=== PATIENT | female | born 1940 | race Caucasian/White ===

== ENCOUNTER 2019-06-14 19:36 | Inpatient (IN) ==
[2019-06-14 21:15] LABS: Basophils # (auto) 0.03 K/uL (0-0.2); Basophils % (auto) 0.3 %; Eosinophils # (auto) 0.03 K/uL (0-0.5); Eosinophils % (auto) 0.3 %; Hematocrit (blood only) 40.8 % (37-47); Hemoglobin 13.6 g/dL (12.0-16.0); Immature Granulocytes # (auto) 0.04 K/uL (0.00-0.02); Immature Granulocytes % (auto) 0.3 %; Lymphocytes # (auto) 1.26 K/uL (1.2-3.4); Lymphocytes % (auto) 10.9 %; Mean Corpuscular Hemoglobin 29.5 pg (25-34); Mean Corpuscular Hgb Conc 33.3 g/dL (32-36); Mean Corpuscular Volume 88.5 fL (80-100); Monocytes # (auto) 1.02 K/uL (0.11-0.59); Monocytes % (auto) 8.8 %; Neutrophils # (auto) 9.17 K/uL (1.4-6.5); Neutrophils % (auto) 79.4 %; Platelet Count 273 K/uL (130-400); RDW Coefficient of Variation 13.8 % (11.5-14.5); RDW Standard Deviation 44.6 fL (36.4-46.3); Red Blood Count 4.61 M/uL (4.2-5.4); White Blood Count 11.55 K/uL (4.8-10.8)
[2019-06-14 21:25] LABS: Alanine Aminotransferase 14 U/L (12-78); Albumin Level 2.9 gm/dl (3.4-5.0); Aspartate Aminotransferase 10 U/L (15-37); BUN Creatinine Ratio 17.9 (10-20); Blood Urea Nitrogen 19 mg/dl (7-18); Calcium 9.2 mg/dl (8.5-10.1); Carbon Dioxide 26 mmol/L (21-32); Chloride 103 mmol/L (98-107); Est GFR (African American) 57.2; Est GFR (Non-African American) 49.3; Glucose 207 mg/dl (70-99); Potassium 3.4 mmol/L (3.5-5.1); Sodium 137 mmol/L (136-145)
[2019-06-14 21:35] LABS: Albumin Globulin Ratio 0.7 (0.9-2); Alkaline Phosphatase 73 U/L (45-117); Bilirubin,Total 0.4 mg/dl (0.2-1); Globulin 4.3 gm/dl (2.5-4.0); Thyroid Stimulating Hormone 0.938 uIu/ml (0.300-4.500); Total Protein 7.2 gm/dl (6.4-8.2); Troponin I < 0.015 ng/ml (0-0.045)
[2019-06-14 21:42] LABS: Appearance Urine Clear (Clear); Bilirubin Urine Negative (Negative); Blood Urine Trace (Negative); Color Urine Yellow; Glucose Urine UA 1+ (Negative); Ketones Urine Negative (Negative); Leukocyte Esterase Urine 1+ (Negative); Nitrite Urine Negative (Negative); Specific Gravity Urine 1.015 (1.000-1.030); Urobilinogen Urine Negative (Negative); pH Urine 7.5 (4.5-7.5)
[2019-06-14 21:44] LABS: Protein Urine Trace (Negative)
[2019-06-14 21:48] LABS: Sulfosalicylic Acid Urine Positive (Negative)
[2019-06-14 21:50] LABS: RBC Urine 0-4 /hpf (0-4)
[2019-06-14 21:51] LABS: Bacteria Urine 1+ (Negative)
--- NOTE | 2019-06-14 21:57 | XRay Report ---
XR chest 1V portable CLINICAL HISTORY: 78 years-old Female presenting with weakness. TECHNIQUE: Portable upright AP view of the chest was obtained. COMPARISON: None. FINDINGS: Suboptimal positioning. The patient is mildly FREY rotated. Atherosclerosis of the aortic arch. Cardia c silhouette mildly enlarged. Mildly low lung volumes with hypoventilatory changes. Left retrocardiac density may relate to cardiomegaly and a prominent pericardial fat pad. No convincing evidence of a focal opacity. No large effusion or pneumothorax. Osteopenia suspected. Evidence of kyphoplasty in th e upper lumbar spine. IMPRESSION: Limited examination due to positioning. This limits diagnostic sensitivity the exam to mild degree. 1. Cardiomegaly. Apparent left retrocardiac density may relate to cardiomegaly or prominent pericard ial fat pad. 2. Low lung volumes and hypoventilatory changes. Electronically signed by: Gilson Meyers M.D. 06/14/2019 9:55 PM
--- NOTE | 2019-06-14 22:44 | CT Scan Report ---
CT head/brain wo con CLINICAL HISTORY: 78 years-old Female presenting with transient ams, confusion. TECHNIQUE: Multidetector CT imaging of the head was performed without the use of intravenous contrast . IV contrast: None. One or more dose lowering techniques were used consistent with the principles of ALARA (as low as reasonably achievable), including automatic exposure control, mA or kV adjustment t o individual patient size, and/or use of iterative reconstruction. COMPARISON: None. CT DOSE (mGy.cm): The estimated cumulative dose is 537.48 mGy.cm. FINDINGS: Media Librarian topogram: Unremarkable. Proportional ventricular and sulcal prominence, advanced for age-related parenchymal volume loss. No hemorrhage. Periventricular and subcortical white matter hypoattenuation, nonspecific but likely galen cative of chronic small vessel ischemic change. No acute territorial infarct. No mass effect or midli ne shift. No extra-axial fluid collection. Paranasal sinuses and mastoid air cells clear. Calvarium i ntact. IMPRESSION: 1. Chronic small vessel ischemic change and advanced parenchymal volume loss. No acute intracranial abnormality. Electronically signed by: Gilson Meyers M.D. 06/14/2019 10:42 PM
[2019-06-14] MEDS ORDERED: CIPROFLOXACIN 400 MG/200 ML BAG IV STA (22:46)
--- NOTE | 2019-06-14 23:54 | Emergency Department Note ---
Entered by Jeannette Calabrese acting as a scribe for Tyrese Hugo M.D. History of Present Illness General Chief complaint: Hypertension Stated complaint: ILLNESS Source: patient Limitations: altered mental status History of Present Illness Provider complaint: Hypertension Onset (ago): hour(s) 3 Associated symptoms: + denies other symptoms (Urinary issues ); no shortness of breath The patient is a 78 year old female who presents to the Emergency Room with complaints of hypertension that began about 3 hours ago. The patient was eating dinner when staff at [facility] noticed that the patient was not acting like herself at dinner. The patient denies any shortness of breath or urinary issues. ROS and HPI limited secondary to altered mental status. Contacted daughter as unable to get staff from facility on the phone. Reports they told her patient had difficulty eating and transferring; also stated she took a nap and was then difficult to arouse from this. Staff found her BP elevated there and called 911. Home Medications Home Medications Medication Instructions Recorded Confirmed Type acetaminophen 1,000 mg PO Q4H PRN 06/14/19 06/14/19 History aspirin 81 mg PO DAILY 06/14/19 06/14/19 History bupropion HCl 300 mg PO QAM 06/14/19 06/14/19 History calcium carbonate [Calcium 600] 600 mg PO BID 06/14/19 06/14/19 History calcium carbonate [Tums] 1,500 mg PO Q2H PRN 06/14/19 06/14/19 History cholecalciferol (vitamin D3) 400 unit PO DAILY 06/14/19 06/14/19 History [Vitamin D3] ciprofloxacin HCl 500 mg PO DIRECTED 06/14/19 06/14/19 History donepezil 10 mg PO HS 06/14/19 06/14/19 History levothyroxine 75 mcg PO DAILY 06/14/19 06/14/19 History lisinopril-hydrochlorothiazide 1 tab PO DAILY 06/14/19 06/14/19 History loratadine 10 mg PO DAILY PRN 06/14/19 06/14/19 History pedi multivit no.58-iron fum 18 mg PO DAILY 06/14/19 06/14/19 History [Child Complete Multivitamin] potassium chloride 8 meq PO DAILY 06/14/19 06/14/19 History promethazine 12.5 mg PO Q6H PRN 06/14/19 06/14/19 History simvastatin 40 mg PO HS 06/14/19 06/14/19 History venlafaxine 37.5 mg PO DAILY 06/14/19 06/14/19 History Allergies Allergy/AdvReac Type Severity Reaction Status Date / Time buspirone [From BuSpar] Allergy Unknown Unknown Verified 06/14/19 23:19 cefuroxime [From Ceftin] Allergy Unknown Unknown Verified 06/14/19 23:19 codeine Allergy Unknown Unknown Verified 06/14/19 23:19 diclofenac [From Voltaren] Allergy Unknown Unknown Verified 06/14/19 23:19 metronidazole [From Flagyl] Allergy Unknown Unknown Verified 06/14/19 23:19 Penicillins Allergy Unknown Unknown Verified 06/14/19 23:19 Past Med/Surg History Medical History Arthritis Depression Falls Hypercholesterolemia Hypertension Hypothyroidism Memory loss Osteopenia Weight loss Family History Other Family history non-contributory Social History Feels Safe at Home: Yes Smoking Status: Never smoker Review of Systems ROS and HPI limited secondary to altered mental status. Physical Exam Vital Signs Vital Signs - 24 hr 06/14/19 19:43 06/14/19 19:53 06/14/19 20:00 Temperature Temperature Source Sepsis Recent Fever Within 48 Hours Sepsis New/Unexplained Change in Mental Status Sepsis Action Taken by Nursing Pulse Rate 90 91 H 91 H Pulse Rate from SpO2 Sensor 90 92 H 92 H Respiratory Rate 22 23 21 Respiratory Effort / Characteristics Respiratory Depth Respiratory Pattern Blood Pressure 167/87 H 162/78 H Blood Pressure Mean 113 106 Pulse Oximetry 92 92 92 Oxygen Delivery Method 06/14/19 20:16 06/14/19 20:30 06/14/19 21:00 Temperature 37.3 C Temperature Source Oral Sepsis Recent Fever Within 48 Hours No Sepsis New/Unexplained Change in Mental Status No Sepsis Action Taken by Nursing No Action Required Pulse Rate 91 H 92 H 87 Pulse Rate from SpO2 Sensor 93 H 87 Respiratory Rate 20 21 17 Respiratory Effort / Characteristics Non-Labored Spontaneous Respiratory Depth Normal Respiratory Pattern Regular Blood Pressure 159/79 H 164/78 H 156/76 H Blood Pressure Mean 105 106 102 Pulse Oximetry 92 92 93 Oxygen Delivery Method Room Air 06/14/19 21:14 06/14/19 21:30 06/14/19 22:00 Temperature Temperature Source Sepsis Recent Fever Within 48 Hours Sepsis New/Unexplained Change in Mental Status Sepsis Action Taken by Nursing Pulse Rate 91 H 89 88 Pulse Rate from SpO2 Sensor Respiratory Rate 20 18 20 Respiratory Effort / Characteristics Respiratory Depth Respiratory Pattern Blood Pressure 152/78 H 153/77 H Blood Pressure Mean 102 102 Pulse Oximetry 92 Oxygen Delivery Method Room Air GENERAL: Awake, alert to person, well-appearing, in no distress. Doesn't know year or events. Pleasant. HENT: Normocephalic, atraumatic. Oropharynx unremarkable. EYES: Normal conjunctiva. Sclera non-icteric. Eyes PERRL. NECK: Supple. No nuchal rigidity. RESPIRATORY: Clear to auscultation. No wheezes. Normal respiratory effort. CARDIAC: Normal rate. Normal rhythm. Extremities warm and well perfused. GI: Soft, non-distended. No tenderness to palpation. RECTAL: Deferred. MUSCULOSKELETAL: Atraumatic. Chest examination reveals no tenderness. LOWER EXTREMITIES: Calves are equal size bilaterally and non-tender. No edema NEURO: No facial droop. Moving all extremities. SKIN: Warm and dry. No jaundice noted. Course 2044: Past medical records reviewed. The patient was evaluated in room C06. A complete history and physical exam was performed. 2244: I reevaluated and discussed the test results with the patient. The patient is resting comfortably. 2253: [facility], He will accept the patient for further evaluation, Administered Medications Discontinued Medications Ciprofloxacin (Cipro) 400 mg in 200 mls @ 200 mls/hr IV NOW STA Stop: 06/14/19 23:45 Last Admin: 06/14/19 23:18 Dose: 200 mls/hr Documented by: [id number] Medical Decision Making Differential Diagnosis Differential diagnoses includes but is not limited to toxic, metabolic, infectious, traumatic, cardiac, neurologic, hematologic, psychiatric and inflammatory etiologies. Medical Records Attestation: I reviewed the patient's medical records. Home Medications Current Medication List: was personally reviewed by me Laboratory Data Attestation: I reviewed the patient's lab results. Result diagrams: 06/14/19 20:51 06/14/19 20:51 Lab Results 06/14/19 06/14/19 06/14/19 Range/Units 20:51 20:51 21:12 WBC 11.55 H (4.8-10.8) K/uL RBC 4.61 (4.2-5.4) M/uL Hgb 13.6 (12.0-16.0) g/dL Hct 40.8 (37-47) % MCV 88.5 (80-100) fL MCH 29.5 (25-34) pg MCHC 33.3 (32-36) g/dL RDW Std Deviation 44.6 (36.4-46.3) fL RDW Coeff of Amber 13.8 (11.5-14.5) % Plt Count 273 (130-400) K/uL MPV 10.0 (7.4-10.4) fL Immature Gran % (Auto) 0.3 % Neut % (Auto) 79.4 % Lymph % (Auto) 10.9 % [place] % (Auto) 8.8 % Eos % (Auto) 0.3 % Baso % (Auto) 0.3 % Immature Gran # (Auto) 0.04 H (0.00-0.02) K/uL Neut # (Auto) 9.17 H (1.4-6.5) K/uL Lymph # (Auto) 1.26 (1.2-3.4) K/uL [place] # (Auto) 1.02 H (0.11-0.59) K/uL Eos # (Auto) 0.03 (0-0.5) K/uL Baso # (Auto) 0.03 (0-0.2) K/uL Sodium 137 (136-145) mmol/L Potassium 3.4 L (3.5-5.1) mmol/L Chloride 103 (98-107) mmol/L Carbon Dioxide 26 (21-32) mmol/L Anion Gap 8.0 (3-11) BUN 19 H (7-18) mg/dl Creatinine 1.07 (0.6-1.2) mg/dl Est Cr Clr Drug Dosing 39.0 ml/min Est GFR ( Amer) 57.2 Est GFR (Non-Af Amer) 49.3 BUN/Creatinine Ratio 17.9 (10-20) Glucose 207 H (70-99) mg/dl Calcium 9.2 (8.5-10.1) mg/dl Magnesium 2.0 (1.8-2.4) mg/dl Total Bilirubin 0.4 (0.2-1) mg/dl AST 10 L (15-37) U/L ALT 14 (12-78) U/L Alkaline Phosphatase 73 (45-117) U/L Troponin I < 0.015 (0-0.045) ng/ml Total Protein 7.2 (6.4-8.2) gm/dl Albumin 2.9 L (3.4-5.0) gm/dl Globulin 4.3 H (2.5-4.0) gm/dl Albumin/Globulin Ratio 0.7 L (0.9-2) TSH 0.938 (0.300-4.500) uIu/ml Urine Color Yellow Urine Appearance Clear (Clear) Urine pH 7.5 (4.5-7.5) Ur Specific [place] 1.015 (1.000-1.030) Urine Protein Trace H (Negative) Urine Glucose (UA) 1+ H (Negative) Urine Ketones Negative (Negative) Urine Blood Trace H (Negative) Urine Nitrite Negative (Negative) Urine Bilirubin Negative (Negative) Urine Urobilinogen Negative (Negative) Ur Leukocyte Esterase 1+ H (Negative) Urine RBC 0-4 (0-4) /hpf Urine WBC 10-30 H (0-5) /hpf Ur Epithelial Cells 10-20 H (0-5) /lpf Ur Renal Epithelial Cell 5-10 H (0-5) /lpf Urine Bacteria 1+ H (Negative) Urine Yeast Present A (None Prsent) Imaging Data Radiologist's Impression: Radiology results as stated below per my review and the radiologist's interpretation: XR chest 1V portable CLINICAL HISTORY: 78 years-old Female presenting with weakness. TECHNIQUE: Portable upright AP view of the chest was obtained. COMPARISON: None. FINDINGS: Suboptimal positioning. The patient is mildly FREY rotated. Atherosclerosis of the aortic arch. Cardiac silhouette mildly enlarged. Mildly low lung volumes with hypoventilatory changes. Left retrocardiac density may relate to cardi omegaly and a prominent pericardial fat pad. No convincing evidence of a focal opacity. No large effusion or pneumothorax. Osteopenia suspected. Evidence of kyphoplasty in the upper lumbar spine. IMPRESSION: Limited examination due to positioning. This limits diagnostic sensitivity the exam to mild degree. 1. Cardiomegaly. Apparent left retrocardiac density may relate to cardiomegaly or prominent pericardial fat pad. 2. Low lung volumes and hypoventilatory changes. Electronically signed by: Gilson Meyers M.D. 06/14/2019 9:[address] head/brain wo con CLINICAL HISTORY: 78 years-old Female presenting with transient ams, confusion. TECHNIQUE: Multidetector CT imaging of the head was performed without the use of intravenous contrast. IV contrast: None. One or more dose lowering techniques were used consistent with the principles of ALARA (as low as reasonably achievable), including automatic exposure control, mA or kV adjustment to individual patient size, and/or use of iterative reconstruction. COMPARISON: None. CT DOSE (mGy.cm): The estimated cumulative dose is 537.48 mGy.cm. FINDINGS: Loom Control Chain Builder topogram: Unremarkable. Proportional ventricular and sulcal prominence, advanced for age-related parenchymal volume loss. No hemorrhage. Periventricular and subcortical white matter hypoattenuation, nonspecific but likely indicative of chronic small vessel ischemic change. No acute territorial infarct. No mass effect or midline shift. No extra-axial fluid collection. Paranasal sinuses and mastoid air cells clear. Calvarium intact. IMPRESSION: 1. Chronic small vessel ischemic change and advanced parenchymal volume loss. No acute intracranial abnormality. Electronically signed by: Gilson Meyers M.D. 06/14/2019 10:42 PM ECG Data Attestation: I personally reviewed and interpreted this ECG as follows: Indication: other (Hypertension) Rate (beats per minute): 89 Rhythm: normal sinus Findings: no PVC, no ST depression and no ST elevation Blood Pressure Blood Pressure Findings: Elevated blood pressure Blood Pressure Disposition: further management by hospitalist [facility] Narrative Patient is a 78-year-old female with a history of hypertension, arthritis, hepatitis, depression, dementia presenting from [facility] today with an episode reported of transient altered mental status. Is evidently having some difficulty eating dinner and not quite acting herself. Evening nap occured per d mayhter via phone report who states she was evidently somewhat difficult to arouse from this. Having some difficulty with transfers and not responding to staff. They noted her to be somewhat hypertensive there. Brought here for further evaluation. Patient arrival here denies any complaints other does unfortunately have memory issues and unable to describe the events. Well- appearing with no significant abnormalities noted on exam other than her dementia issues. Broad work-up was initiated including laboratory studies and a CT of the head. There is no focal neurological deficits noted on gross exam at this time. Laboratory studies show a slight leukocytosis of 11.5 unclear significance at this point. Electrolytes without significant normality. Negative troponin. No significant transaminitis. Thyroid study within normal limits. Patient's urine study does show evidence of leukesterase. White blood cells noted with bacteria however some epithelial cells are noted. Will treat a s UTI at this time. Talked with the daughter who states she has been somewhat altered in the past with UTIs. Given this I feel that observation overnight in the hospital after a dose of antibiotic is appropriate to monitor for improvement. Discussed with the [facility] hospitalist. Given allergy profile and previous history has tolerated ciprofloxacin before. Will give a dose of this IV. Daughter updated via phone and states mother would be full code. Impression & Plan Acute UTI, Altered awareness, transient Discharge Plan Visit Data Chief Complaint: Hypertension Stated Complaint: ILLNESS ED Provider: Tyrese Hugo Discharge Problem: Acute UTI, Altered awareness, transient Forms Stand Alone Forms: My [facility] [place] Anytime DD Prescriptions Prescriptions: No Action aspirin 81 mg Tablet,Delayed Release (Dr/Ec) 81 mg PO DAILY RF: 0 bupropion HCl 300 mg Tablet Extended Release 24 Hr 300 mg PO QAM RF: 0 donepezil 10 mg Tablet 10 mg PO HS RF: 0 levothyroxine 75 mcg Tablet 75 mcg PO DAILY RF: 0 lisinopril-hydrochlorothiazide 20-25 mg Tablet 1 tab PO DAILY RF: 0 potassium chloride 8 mEq Tablet Extended Release 8 meq PO DAILY RF: 0 calcium carbonate [Calcium 600] 600 mg calcium (1,500 mg) Tablet 600 mg PO BID RF: 0 Child Complete Multivitamin 18 mg iron Tablet,Chewable 18 mg PO DAILY RF: 0 simvastatin 40 mg Tablet 40 mg PO HS RF: 0 venlafaxine 37.5 mg Tablet 37.5 mg PO DAILY RF: 0 cholecalciferol (vitamin D3) [Vitamin D3] 400 unit Tablet 400 unit PO DAILY RF: 0 acetaminophen 500 mg Tablet 1,000 mg PO Q4H PRN (Reason: Pain) RF: 0 ciprofloxacin HCl 500 mg Tablet 500 mg PO DIRECTED RF: 0 loratadine 10 mg Tablet 10 mg PO DAILY PRN (Reason: Allergy Symptoms) RF: 0 promethazine 12.5 mg Tablet 12.5 mg PO Q6H PRN (Reason: nausea/vomiting) RF: 0 calcium carbonate [Tums] 300 mg (750 mg) Tablet,Chewable 1,500 mg PO Q2H PRN (Reason: Heartburn) RF: 0 The scribe's documentation has been prepared under my direction and personally reviewed by me in its entirety. I confirm that the note above accurately reflects all work, treatment, procedures, and medical decision making performed by me.
--- NOTE | 2019-06-15 00:27 | History and Physical Report ---
DATE OF ADMISSION: 06/14/2019 CHIEF COMPLAINT: Confusion. HISTORY OF PRESENT ILLNESS: This is a 78-year-old female, a [facility] resident, with past medical history significant for dementia, hypothyroidism, hypertension, hyperlipidemia, depression, osteoporosis, who presents with confusion. As per daughter, the patient was born and lived in the [facility], but since about a year, she moved to [place] to be close with her and she has been at [facility]. She generally eats regular food without any help and she ambulates with a walker because she has some knee pains. Sometimes confused with the place, she thinks sometimes she is in [place] as the dementia is getting worse. She saw her couple of days ago and she had fries and sandwich and she seemed okay and there were no complaints.But today at the dinner table in the alf, patient was not eating and did not respond to the staff questions and EMS was called and brought in here. Currently, the patient is hemodynamically stable, seems comfortable, somewhat hard of hearing, oriented to name . Told her date of to the nursing staff. Does not know where she is. Denies any headache. Denies any chest pain. Denies any nausea. Denies any abdominal pain. Says she is doing okay. She says appetite is good. She says she is going to bathroom okay. ALLERGIES: BUSPIRONE,CEFTIN, CODEINE,DICLOFENAC, METRONIDAZOLE, PENICILLIN. PAST MEDICAL HISTORY: As mentioned above. PAST SURGICAL HISTORY: Cataract surgeries, arthroscopy of the knees, compression fractures cement placement, partial hip replacement. MEDICATIONS: The patient is on Tylenol 1000 mg p.o. q. 4 hours p.r.n., aspirin 81 mg p.o. daily, bupropion 300 mg p.o. a.m., calcium carbonate 600 mg p.o. b.i.d., Tums p.r.n., vitamin D 4000 units p.o. daily, ciprofloxacin as directed, donepezil 10 mg p.o. at bedtime, levothyroxine 75 mcg p.o. daily, lisinopril/hydrochlorothiazide 1 tablet daily, loratadine 10 mg p.o. daily p.r.n., pediatric multivitamins 1 tablet daily, potassium chloride 8 mEq p.o. daily, promethazine 12.5 mg p.o. q. 6 hours p.r.n., simvastatin 40 mg p.o. at bedtime, venlafaxine 37.5 mg p.o. daily. FAMILY HISTORY: Noncontributory. SOCIAL HISTORY: Remote history of smoking, quit over 50 years ago. Currently living in a alf. REVIEW OF SYSTEMS: As per HPI. Difficult to get review of systems. PHYSICAL EXAMINATION: GENERAL: The patient is alert and awake, oriented to name only. VITAL SIGNS: Temperature 37.3, pulse 88, respiratory rate 20, blood pressure 153/77, oxygen 92% on room air. HEENT: No pallor, no icterus. Pupils equal, round, and reactive to light. NECK: No JVD, no neck masses. CARDIOVASCULAR: S1, S2 heard, regular rate and rhythm, no murmur, no gallop. RESPIRATORY SYSTEM: Normal AP diameter. No accessory muscle use. No wheezing, no crackles. ABDOMEN: Soft, bowel sounds present, nontender. No distention. CENTRAL NERVOUS SYSTEM: Alert and awake and oriented x1. Obeys simple commands. Moves extremities. EXTREMITIES: No edema, no erythema. LABORATORY DATA: WBC 11.5, hemoglobin 13.6, hematocrit 40.8, platelets 273. Sodium 137, potassium 3.4, chloride 103, bicarbonate 26, BUN 19, creatinine 1.07, serum glucose 207, calcium 9.2, magnesium 2, total bilirubin 0.4, AST 10, ALT 14, alkaline phosphatase 73, troponin I less than 0.015. TSH 0.9. Urinalysis positive for leukocyte esterase. IMAGING DATA: CT of the head, no acute findings, chronic small vessel ischemic changes and advanced parenchymal volume loss. Chest x-ray, no acute findings. cardiomegaly or prominent pericardial fat pad. ASSESSMENT AND PLAN: This 78-year-old female presents with questionable confusion. 1. Confusion. The patient was not answering to questions of staff at dinner table and brought in here. Currently hemodynamically stable, seems comfortable. Possible urinary tract infection. White count is slightly elevated and UA is positive. She is allergic to cephalosporins and penicillins. Given Cipro in the ER which we will continue with oral Cipro and wait for the cultures and monitor in the medical floor. PT and OT prior to discharge. Social service to help with discharge planning. 2. Hypertension. Continue her home medications of lisinopril/hydrochlorothiazide. 3. Hypothyroidism. Continue Synthroid. 4. Dementia. Continue donepezil. Monitor for any delirium. 5. Depression. Continue bupropion and venlafaxine. 6. Hyperlipidemia. Continue statin. 7. Deep vein thrombosis prophylaxis, sequential compression devices. 8. Disposition: Closely monitor in the medical floor. Level 1 full code as per my discussion with daughter. PT and OT prior to discharge. Social service to help with discharge planning. Plan to send her back to [facility] when patient is stable. [place]
[2019-06-15] MEDS ORDERED: ONDANSETRON INJ 2 MG/ML 2 ML VIAL IV PRN (01:30)
[2019-06-15] MEDS ORDERED: SODIUM CHLORIDE 0.9% 1000ML 1,000 ML IV SCH (01:30)
[2019-06-15] MEDS ORDERED: POTASSIUM CHLORIDE 10 MEQ TABCR PO STA (01:30)
[2019-06-15] MEDS ORDERED: PROMETHAZINE HCL 25 MG TAB PO PRN (01:30)
[2019-06-15] MEDS ORDERED: ACETAMINOPHEN 500 MG TAB PO PRN (01:30)
[2019-06-15] MEDS ORDERED: LORATADINE 10 MG TAB PO PRN (01:30)
[2019-06-15 06:01] LABS: Basophils # (auto) 0.03 K/uL (0-0.2); Basophils % (auto) 0.3 %; Eosinophils # (auto) 0.06 K/uL (0-0.5); Eosinophils % (auto) 0.6 %; Hematocrit (blood only) 40.5 % (37-47); Hemoglobin 13.3 g/dL (12.0-16.0); Immature Granulocytes # (auto) 0.04 K/uL (0.00-0.02); Immature Granulocytes % (auto) 0.4 %; Lymphocytes # (auto) 1.68 K/uL (1.2-3.4); Mean Corpuscular Hemoglobin 29.2 pg (25-34); Mean Corpuscular Hgb Conc 32.8 g/dL (32-36); Mean Platelet Volume 9.8 fL (7.4-10.4); Monocytes # (auto) 1.26 K/uL (0.11-0.59); Neutrophils # (auto) 7.43 K/uL (1.4-6.5); Neutrophils % (auto) 70.7 %; Platelet Count 259 K/uL (130-400); RDW Coefficient of Variation 13.8 % (11.5-14.5); RDW Standard Deviation 44.8 fL (36.4-46.3); Red Blood Count 4.55 M/uL (4.2-5.4)
[2019-06-15 06:04] LABS: BUN Creatinine Ratio 17.9 (10-20); Calcium 8.6 mg/dl (8.5-10.1); Creatinine Clr Calc Pharmacy 46.8 ml/min; Est GFR (African American) 71.4; Est GFR (Non-African American) 61.6; Magnesium 1.9 mg/dl (1.8-2.4); Potassium 3.5 mmol/L (3.5-5.1)
[2019-06-15] MEDS: LEVOTHYROXINE SODIUM 75 MCG TABLET PO SCH (07:09)
[2019-06-15] MEDS: CALCIUM 600MG + VIT D 400 IU TAB PO SCH ×2 (07:59→19:50)
[2019-06-15] MEDS: VENLAFAXINE HCL 37.5 MG TAB PO SCH (07:59)
[2019-06-15] MEDS: BuPROPion XL 300 MG TABCR PO SCH (08:00)
[2019-06-15] MEDS: LISINOPRIL/HCTZ 20/25MG 1 TAB PO SCH (08:00)
[2019-06-15] MEDS: ASPIRIN 81 MG ECTAB PO SCH (08:00)
[2019-06-15] MEDS: POTASSIUM CHLORIDE 10 MEQ TABCR PO SCH (08:00)
[2019-06-15] MEDS: FLINTSTONES COMPLETE CHEWABLE TAB PO SCH (08:00)
[2019-06-15] MEDS: CHOLECALCIFEROL (VITAMIN D) 400 UNITS TABLET PO SCH (08:00)
[2019-06-15] MEDS: CIPROFLOXACIN 250 MG TAB PO SCH ×2 (08:00→19:49)
--- NOTE | 2019-06-15 15:56 | Hospitalist Progress Note ---
Date of Service June 15, 2019 Assessment & Plan (1) Acute UTI: UA positive for leukocyte esterase Evidence of sepsis normal white count, patient is afebrile Started empiric antibiotic with ciprofloxacin, awaiting urine culture report and sensitivity Patient has prior history of Klebsiella UTI,(was sensitive to Cipro) (2) Metabolic encephalopathy: Presented with confusion, lethargy, possible secondary to UTI Mental status improved to approximate baseline, CT head noncontrast shows no evidence of any acute finding chronic small vessel ischemic changes, and advanced parenchymal volume loss-suggested of dementia (3) Dementia: Baseline patient is oriented to person only lives at [facility] independent of ADLs with minimum assistance Presented with lethargy, worsening of confusion and altered mental status, secondary to infection/UTI CT head noncontrast: Shows no acute change, chronic vessel ischemic changes and advanced parenchymal volume loss: Suggestive of her underlying dementia diagnosed Status improved to approximate baseline after supportive care (4) Hypertension: BP stable, outpatient medications lisinopril/HCTZ continued (5) Hyperlipidemia: Patient is continued on statin CODE STATUS: Full code DVT prophylaxis: SCD and teds [facility] prior to this hospital admission PT OT evaluation requested Social service consulted for discharge planning Subjective Patient found sitting up in bedside chair, awake and alert, oriented to person only Denies of any pain or discomfort, Has been afebrile, vitals been stable Patient denies of any abdominal pain, does not recall any urinary symptoms (very poor historian secondary to dementia) Review of Systems Review of Systems: All systems reviewed & are unremarkable except as noted in HPI & below Physical Exam Physical Exam: GENERAL: Elderly female, sitting up no sign of any distress HEENT: Sclera nonicteric, Normal oral mucosa, neck: No JVD, no thyromegaly, trachea midline Lungs: Clear to auscultate, no wheeze or rales Cardiovascular: Regular S1 and S2, no murmur or gallop, no JVD, no lower extremity edema Abdomen: Soft, nontender, bowel sounds active, no hepatosplenomegaly Extremities: No rash or deformity, normal joint, Neuro: No focal neurological deficit, no dysarthria, no facial droop Psych: Alert, baseline advanced dementia oriented to person only Results & Data Vital Signs (Past 12 Hours) Vital Signs Temp Pulse Resp BP Pulse Ox 06/15/19 15:29 37.0 C 78 16 133/66 94 06/15/19 13:19 94 06/15/19 07:05 36.6 C 70 16 150/71 H 93
[2019-06-15] MEDS: ACETAMINOPHEN 325 MG TAB PO PRN ×2 (17:12→21:34)
[2019-06-15] MEDS ORDERED: PNEUMOCOCCAL POLYSACCHARIDES 25 MCG/0.5 ML VIAL/SYR IM ONE (21:00)
[2019-06-15] MEDS ORDERED: DONEPEZIL HCL 10 MG TAB PO SCH (21:00)
[2019-06-15] MEDS ORDERED: PNEUMOCOCCAL ADMINISTRATION CHARGE ONE (21:00)
[2019-06-15] MEDS ORDERED: SIMVASTATIN 40 MG TAB PO SCH (21:00)
[2019-06-16] MEDS: LEVOTHYROXINE SODIUM 75 MCG TABLET PO SCH (06:26)
[2019-06-16 07:20] VITALS: O2SAT 94
[2019-06-16] MEDS: CHOLECALCIFEROL (VITAMIN D) 400 UNITS TABLET PO SCH (08:51)
[2019-06-16] MEDS: CALCIUM 600MG + VIT D 400 IU TAB PO SCH (08:51)
[2019-06-16] MEDS: VENLAFAXINE HCL 37.5 MG TAB PO SCH (08:52)
[2019-06-16] MEDS: ASPIRIN 81 MG ECTAB PO SCH (08:52)
[2019-06-16] MEDS: POTASSIUM CHLORIDE 10 MEQ TABCR PO SCH (08:52)
[2019-06-16] MEDS: LISINOPRIL/HCTZ 20/25MG 1 TAB PO SCH (08:52)
[2019-06-16] MEDS: CIPROFLOXACIN 250 MG TAB PO SCH (08:52)
[2019-06-16] MEDS: FLINTSTONES COMPLETE CHEWABLE TAB PO SCH (08:52)
[2019-06-16] MEDS: BuPROPion XL 300 MG TABCR PO SCH (08:53)
[2019-06-16 11:42] VITALS: BP 179/72; PULSE 65; TEMP 97.9
[2019-06-16] MEDS ORDERED: cephALEXin 250 MG CAP PO STA (12:30)
--- NOTE | 2019-06-16 14:47 | Discharge Summary ---
Date of Service June 16, 2019 Admission HPI Per Admitting Provider DICTATED BY: Guy Hutchison MD DATE OF ADMISSION: 06/14/2019 CHIEF COMPLAINT: Confusion. HISTORY OF PRESENT ILLNESS: This is a 78-year-old female, a [facility] resident, with past medical history significant for dementia, hypothyroidism, hypertension, hyperlipidemia, depression, osteoporosis, who presents with confusion. As per daughter, the patient was born and lived in the [facility], but since about a year, she moved to [place] to be close with her and she has been at [facility]. She generally eats regular food without any help and she ambulates with a walker because she has some knee pains. Sometimes confused with the place, she thinks sometimes she is in [place] as the dementia is getting worse. She saw her couple of days ago and she had fries and sandwich and she seemed okay and there were no complaints.But today at the dinner table in the long-term, patient was not eating and did not respond to the staff questions and EMS was called and brought in here. Currently, the patient is hemodynamically stable, seems comfortable, somewhat hard of hearing, oriented to name . Told her date of to the nursing staff. Does not know where she is. Denies any headache. Denies any chest pain. Denies any nausea. Denies any abdominal pain. Says she is doing okay. She says appetite is good. She says she is going to bathroom okay. Principal Diagnosis URINARY TRACT INFECTION, CONFUSION/LETHARGY DUE TO METABOLIC ENCEPHALOPATHY SECONDARY TO DEHYDRATION AND TRACT INFECTION, BASELINE DEMENTIA Discharge Data Allergies Allergy/AdvReac Type Severity Reaction Status Date / Time buspirone [From BuSpar] Allergy Unknown Unknown Verified 06/14/19 23:19 cefuroxime [From Ceftin] Allergy Unknown Unknown Verified 06/14/19 23:19 codeine Allergy Unknown Unknown Verified 06/14/19 23:19 diclofenac [From Voltaren] Allergy Unknown Unknown Verified 06/14/19 23:19 metronidazole [From Flagyl] Allergy Unknown Unknown Verified 06/14/19 23:19 Penicillins Allergy Unknown Unknown Verified 06/14/19 23:19 Consultations 06/14/19 22:46 ED Decision to Admit Stat 06/15/19 01:30 Consult Case Management - Discharge Planning Routine Ordered Studies 06/14/19 20:51 CT head/brain wo con Stat Hospital Course (1) Acute UTI: UA positive for leukocyte esterase Evidence of sepsis normal white count, patient is afebrile Urine culture negative: Received antibiotics prior to urine culture sample obtained Was initially treated with ciprofloxacin(QTC prolonged more than 500), changed to p.o. Keflex, (2) Metabolic encephalopathy: Resolved, and alert and awake and oriented to place and person: Approximate baseline Stable to be discharged home today Presented with confusion, lethargy, possible secondary to UTI Mental status improved to approximate baseline, CT head noncontrast shows no evidence of any acute finding chronic small vessel ischemic changes, and advanced parenchymal volume loss-suggested of dementia (3) Dementia: Baseline patient is oriented to person only [facility] independent of ADLs with minimum assistance Presented with lethargy, worsening of confusion and altered mental status, secondary to infection/UTI CT head noncontrast: Shows no acute change, chronic vessel ischemic changes and advanced parenchymal volume loss: Suggestive of her underlying dementia diagnosed Status improved to approximate baseline after supportive care (4) Hypertension: BP stable, outpatient medications lisinopril/HCTZ continued (5) Hyperlipidemia: Patient is continued on statin CODE STATUS: Full code DVT prophylaxis: SCD and teds Disposition: Patient is a resident at [facility] Is fairly independent prior to this hospital admission As per PT OT, patient is back to her baseline functional status Stable to be discharged home today with p.o. antibiotic Patient's family: Daughter given update at bedside Total Time Total Time Spent Total Time Spent (In Minutes): Approximately 40 minutes Total Time Includes: Examination of the Patient, Discharge Planning and Medication Reconciliation Discharge Plan Discharge Items Patient Disposition: Personal Half-Way Reason For Visit: CONFUSION Discharge Diagnosis: URINARY TRACT INFECTION, CONFUSION/LETHARGY DUE TO MET ABOLIC ENCEPHALOPATHY SECONDARY TO DEHYDRATION AND TRACT INFECTION, BASELINE DEMENTIA Discharge Goals: Decrease discomfort Activity: Resume your previous activity Non-emergency contact: Primary Care Provider Call non-emergency contact if: you have any medication questions Follow-up/Referrals: Meggan Loyola [Primary Care Provider] - Diet: Heart Healthy Addtl Provider Instructions: Hospital follow-up follow-up with physician at [facility] in a week Prescriptions: New cephalexin [Keflex] 250 mg capsule 250 mg PO BID 5 Days Qty: 10 RF: 0 ciprofloxacin HCl 500 mg tablet 500 mg PO UD Qty: 10 RF: 0 Continued aspirin 81 mg Tablet,Delayed Release (Dr/Ec) 81 mg PO DAILY RF: 0 bupropion HCl 300 mg Tablet Extended Release 24 Hr 300 mg PO QAM RF: 0 donepezil 10 mg Tablet 10 mg PO HS RF: 0 levothyroxine 75 mcg Tablet 75 mcg PO DAILY RF: 0 lisinopril-hydrochlorothiazide 20-25 mg Tablet 1 tab PO DAILY RF: 0 potassium chloride 8 mEq Tablet Extended Release 8 meq PO DAILY RF: 0 calcium carbonate [Calcium 600] 600 mg calcium (1,500 mg) Tablet 600 mg PO BID RF: 0 Child Complete Multivitamin 18 mg iron Tablet,Chewable 18 mg PO DAILY RF: 0 simvastatin 40 mg Tablet 40 mg PO HS RF: 0 venlafaxine 37.5 mg Tablet 37.5 mg PO DAILY RF: 0 cholecalciferol (vitamin D3) [Vitamin D3] 400 unit Tablet 400 unit PO DAILY RF: 0 acetaminophen 500 mg Tablet 1,000 mg PO Q4H PRN (Reason: Pain) RF: 0 loratadine 10 mg Tablet 10 mg PO DAILY PRN (Reason: Allergy Symptoms) RF: 0 promethazine 12.5 mg Tablet 12.5 mg PO Q6H PRN (Reason: nausea/vomiting) RF: 0 calcium carbonate [Tums] 300 mg (750 mg) Tablet,Chewable 1,500 mg PO Q2H PRN (Reason: Heartburn) RF: 0 Discontinued ciprofloxacin HCl 500 mg Tablet 500 mg PO DIRECTED RF: 0 Stand-Alone Forms: [facility] Discharge Orders: Discharge Order (Routine); Ordered 06/16/19 Ordered By: Courtney Ortez Admission Data Admit Date/Time: 06/14/19 23:38 Attending Provider: Courtney Ortez Admit Provider: Guy Hutchison Primary Care Provider: Meggan Loyola Other Providers: Guy Hutchison Service: Medical Other Interventions: Discharge Summary Assessment (RN) Last Done: 06/16/19 13:52 DC Date/Time DO NOT enter until pt leaves facility: 06/16/19 14:40
== END 2019-06-16 14:40 | disposition home or self-care (01) | DRG 689 ==
LOC: ED 19:36 → 2W 23:38

== ENCOUNTER 2020-04-23 09:03 | Inpatient (IN) ==
[2020-04-23] MEDS ORDERED: SODIUM CHLORIDE 0.9% 500 ML IV ONE (09:30)
--- NOTE | 2020-04-23 09:46 | XRay Report ---
XR chest 1V portable CLINICAL HISTORY: weakness dyspnea COMPARISON STUDY: 03/02/2020 FINDINGS: The bones soft tissues and hemidiaphragms are normal. The cardiomediastinal silhouette is n ormal. The lungs are clear. The pulmonary vasculature is normal. IMPRESSION: Negative chest. ACT 112: Negative or not required by law. The above report was generated using voice recognition software. It may contain grammatical, syntax or spelling errors. Electronically signed by: Jonny Butt M.D. 04/23/2020 9:45 AM
[2020-04-23 09:47] LABS: Basophils # (auto) 0.04 K/uL (0-0.2); Basophils % (auto) 0.3 %; Eosinophils # (auto) 0.39 K/uL (0-0.5); Eosinophils % (auto) 2.7 %; Hematocrit (blood only) 42.5 % (37-47); Hemoglobin 13.9 g/dL (12.0-16.0); Immature Granulocytes # (auto) 0.06 K/uL (0.00-0.02); Immature Granulocytes % (auto) 0.4 %; Lymphocytes # (auto) 1.18 K/uL (1.2-3.4); Lymphocytes % (auto) 8.2 %; Mean Corpuscular Hemoglobin 30.3 pg (25-34); Mean Corpuscular Hgb Conc 32.7 g/dL (32-36); Mean Corpuscular Volume 92.6 fL (80-100); Mean Platelet Volume 9.9 fL (7.4-10.4); Monocytes # (auto) 0.87 K/uL (0.11-0.59); Monocytes % (auto) 6.1 %; Neutrophils # (auto) 11.81 K/uL (1.4-6.5); Neutrophils % (auto) 82.3 %; Platelet Count 279 K/uL (130-400); RDW Coefficient of Variation 14.5 % (11.5-14.5); RDW Standard Deviation 49.3 fL (36.4-46.3); Red Blood Count 4.59 M/uL (4.2-5.4); White Blood Count 14.35 K/uL (4.8-10.8)
--- NOTE | 2020-04-23 09:49 | Emergency Department Note ---
History of Present Illness General Chief complaint: Hip Pain Stated complaint: fall/ R hip pain / [facility] Time Seen by Provider: 04/23/20 09:17 History of Present Illness Maximum Pain Intensity: 5 79-year-old female, history of dementia, who presents to emergency department via EMS from the [facility] with complaint of persistent right hip pain after an unwitnessed fall 2 days ago. Staff found the patient laying on the floor. With inability to ambulate, mobile x-rays were completed yesterday of the right hip and pelvis with no acute fractures. With complaint of persistent pain in the hip and back, the patient was therefore sent to the emergency department for further evaluation. When asking the patient where she hurts, she reports her back. When asked to point where she hurts, she is unable to do so. She does not know what caused her to fall. She currently denies any headache, neck pain or upper back pain. She also currently denies any chest pain or belly pain. The patient is unable to rate her pain on my exam, but rated her pain a 5 out of 10 on the Luo Dodd pain scale. Home Medications Home Medications Medication Instructions Recorded Confirmed Type Child Complete Multivitamin 18 mg PO DAILY@89906/14/19 04/23/20 History acetaminophen 1,000 mg PO BID 06/14/19 04/23/20 History aspirin 81 mg PO DAILY@89906/14/19 04/23/20 History bupropion HCl 300 mg PO DAILY@89906/14/19 04/23/20 History calcium carbonate [Calcium 600] 600 mg PO BID 06/14/19 04/23/20 History calcium carbonate [Tums] 1,500 mg PO Q2H PRN 06/14/19 04/23/20 History cholecalciferol (vitamin D3) 400 unit PO DAILY@89906/14/19 04/23/20 History [Vitamin D3] donepezil 10 mg PO DAILY@169906/14/19 04/23/20 History potassium chloride 8 meq PO DAILY@89906/14/19 04/23/20 History promethazine 12.5 mg PO Q6H PRN 06/14/19 04/23/20 History simvastatin 40 mg PO DAILY@169906/14/19 04/23/20 History venlafaxine 37.5 mg PO DAILY@0906/14/19 04/23/20 History ciprofloxacin HCl 500 mg PO UD #10 tab 06/16/19 04/23/20 Rx levothyroxine 88 mcg PO DAILY@0603/02/20 04/23/20 History lisinopril 20 mg PO DAILY@0803/02/20 04/23/20 History acetaminophen 1,000 mg PO Q4H PRN 04/23/20 04/23/20 History amlodipine 5 mg PO DAILY 04/23/20 04/23/20 History loratadine 10 mg PO DAILY PRN 04/23/20 04/23/20 History Allergies Allergy/AdvReac Type Severity Reaction Status Date / Time buspirone [From BuSpar] Allergy Unknown Unknown Verified 04/23/20 09:27 cefuroxime [From Ceftin] Allergy Unknown Unknown Verified 04/23/20 09:27 codeine Allergy Unknown Unknown Verified 04/23/20 09:27 diclofenac [From Voltaren] Allergy Unknown Unknown Verified 04/23/20 09:27 metronidazole [From Flagyl] Allergy Unknown Unknown Verified 04/23/20 09:27 Penicillins Allergy Unknown Unknown Verified 04/23/20 09:27 Past Med/Surg History Medical History Acute UTI (Acute) Arthritis Depression Falls Hypercholesterolemia Hypertension Hypothyroidism Memory loss Metabolic encephalopathy Osteopenia Weight loss Surgical History History of left hip replacement Surgical history unknown Family History Other Family history non-contributory Social History Preferred Language: [place] Communication Ability: Impaired Supervisor [employer] Fueling Required: No Beliefs That Will Affect Care: None marital status: Single Current Living Situation: Retirement Current Living Situation Comment: adriane dueñas current occupational status: retired Other Information That Helps Us Care for You: No other: POA/daughter is Felisa Rae ([phone]) of [employer] Feels Safe at Home: Yes Safety Concerns: Feels Safe At This Time Smoking Status: Never smoker Hx Alcohol Use: No Hx Substance Use: No Review of Systems Review of systems could not be performed given the patient's dementia Physical Exam Vital Signs Vital Signs - 24 hr 04/23/20 09:11 04/23/20 09:36 04/23/20 10:29 Temperature 37.4 C Temperature Source Oral Pulse Rate 90 Pulse Rate [Left Finger] 87 Pulse Rate from SpO2 Sensor Respiratory Rate 18 20 Blood Pressure 171/83 H Blood Pressure [Left Arm] 197/94 H Blood Pressure Mean 112 Blood Pressure Mean [Left Arm] 128 Pulse Oximetry 94 94 94 Oxygen Delivery Method Room Air Room Air Room Air Sepsis Recent Fever Within 48 Hours No Sepsis New/Unexplained Change in Mental Status No 04/23/20 10:30 04/23/20 11:00 04/23/20 11:30 Temperature Temperature Source Pulse Rate 85 90 93 H Pulse Rate [Left Finger] Pulse Rate from SpO2 Sensor 79 Respiratory Rate 15 19 16 Blood Pressure 187/90 H 181/97 H 188/96 H Blood Pressure [Left Arm] Blood Pressure Mean 118 107 131 Blood Pressure Mean [Left Arm] Pulse Oximetry 95 94 94 Oxygen Delivery Method Sepsis Recent Fever Within 48 Hours Sepsis New/Unexplained Change in Mental Status CONSTITUTIONAL: Healthy and well nourished. Patient is currently positioned on her left side. Patient otherwise does not appear in any acute distress. Patient does answer some questions that she understands. HEENT: Normocephalic, atraumatic. Pupils equal, round and reactive. No evidence for epistaxis, hemotympanum, subconjunctival hemorrhage, raccoon's eyes or leroy sign. No obvious dental trauma or posterior pharyngeal blood or drainage. NECK: Patient does not have any identifiable tenderness to palpation of the central cervical spine or cervical musculature. The patient limits range of motion secondary to positioning. LYMPHATICS: No cervical chain adenopathy appreciated. RESPIRATORY: Clear to auscultation bilaterally with no wheezing, crackles, rhonchi or stridor. CARDIOVASCULAR: Regular rate and rhythm with no murmurs, rubs or gallops. GASTROINTESTINAL: Bowel sounds present in all quadrants. Abdomen is soft and nontender to palpation. MUSCULOSKELETAL: Examination does not show any focal significant tenderness to palpation through the thoracolumbar spine or ribs. She has mild discomfort with internal and external rotation of the right hip. Pelvis is stable with rock. Patient has no obvious discomfort with range of motion of the shoulders, elbows or wrists. No tenderness to palpation of the knees, ankles or feet. No dependent/peripheral edema noted. All distal pulses are intact. INTEGUMENTARY: No rash or other significant dermatologic conditions noted. HEMATOLOGIC: No ecchymosis or petechiae. PSYCHIATRIC: Flat affect. NEUROLOGIC: No focal neurologic deficits noted. Course Course Patient history and physical exam were performed. Nurse's notes were reviewed. Vital signs were reviewed, showing an oral temperature of 37.4 C. O2 saturation is 94% on room air. Blood pressure is also elevated at 171/83, and pulse rate is 90. I also reviewed prior medical records, showing that the patient has had prior history of altered mental status secondary to UTI. The patient has had several prior urine cultures showing E. coli and Klebsiella that were both pansensitive. I also reviewed documentation from the [facility], with mobile x-rays performed yesterday of the right hip and pelvis that were normal. Old healed fracture deformities of the right and left anterior alexa pelvis, involving the pubic rami were also noted. The patient also has a left hip arthroplasty which appears intact. She does have moderately severe arthritic change of the right hip joint. Because the the patient did have an unwitnessed fall, as well as history of dementia and poor history, I felt that further work-up was warranted for other causes of fall. IV access was established, and labs were drawn. Urine cath was also collected with urinalysis consistent with UTI. Urine cultures are pending. Patient also has a moderate leukocytosis with left shift and bandemia. Glucose is 167. Patient was placed on cardiac cath lab radiology technologist while in the emergency department. A portable chest x-ray and ECG were normal. Noncontrast CT of the head and cervical spine were normal. Noncontrast CT of the thoracolumbar spine shows wedge fractures of T11 and L5. Noncontrast CT of the pelvis and right hip shows a right ischio pubic ramus fracture. Findings were discussed with Dr. Beltre, ED attending physician, who also evaluated the patient, and recommends hospitalist consultation. The case was then further discussed with the [facility] hospitalist group for further admission and management. Please see their dictation for further treatment and final disposition. I also called and spoke with the patient's daughter Felisa (power of customer operations intern), who is currently in [place] with her sister, and without means to travel back to [place] until . She has asked that the hospitalist service contact her regarding plan of care for possible rehab as she does usually ambulate at the [facility] with a walker. Administered Medications Discontinued Medications Sodium Chloride (Nss) 500 mls @ 999 mls/hr IV .Q31M ONE Stop: 04/23/20 10:00 Last Infusion: 04/23/20 10:29 Dose: 0 mls/hr Documented by: [id number] Admin: 04/23/20 09:58 Dose: 999 mls/hr Documented by: [id number] Ceftriaxone Sodium (Rocephin) 2,000 mg in 70 mls @ 140 mls/hr IV NOW STA Stop: 04/23/20 10:43 Last Infusion: 04/23/20 11:07 Dose: 0 mls/hr Documented by: [id number] Admin: 04/23/20 10:27 Dose: 140 mls/hr Documented by: [id number] Medical Decision Making Medical Records Attestation: I reviewed the patient's medical records. Home Medications Current Medication List: was personally reviewed by me Laboratory Data Attestation: I reviewed the patient's lab results. Result diagrams: 04/23/20 09:35 04/23/20 09:35 Lab Results 04/23/20 04/23/20 04/23/20 Range/Units 09:35 09:35 09:35 WBC 14.35 H (4.8-10.8) K/uL RBC 4.59 (4.2-5.4) M/uL Hgb 13.9 (12.0-16.0) g/dL Hct 42.5 (37-47) % MCV 92.6 (80-100) fL MCH 30.3 (25-34) pg MCHC 32.7 (32-36) g/dL RDW Std Deviation 49.3 H (36.4-46.3) fL RDW Coeff of Amber 14.5 (11.5-14.5) % Plt Count 279 (130-400) K/uL MPV 9.9 (7.4-10.4) fL Immature Gran % (Auto) 0.4 % Neut % (Auto) 82.3 % Lymph % (Auto) 8.2 % Winkler % (Auto) 6.1 % Eos % (Auto) 2.7 % Baso % (Auto) 0.3 % Neut # (Auto) 11.81 H (1.4-6.5) K/uL Lymph # (Auto) 1.18 L (1.2-3.4) K/uL Winkler # (Auto) 0.87 H (0.11-0.59) K/uL Eos # (Auto) 0.39 (0-0.5) K/uL Baso # (Auto) 0.04 (0-0.2) K/uL Immature Gran # (Auto) 0.06 H (0.00-0.02) K/uL Sodium 142 (136-145) mmol/L Potassium 3.8 (3.5-5.1) mmol/L Chloride 110 H (98-107) mmol/L Carbon Dioxide 24 (21-32) mmol/L Anion Gap 8.0 (3-11) BUN 16 (7-18) mg/dl Creatinine 1.04 (0.6-1.2) mg/dl Est Cr Clr Drug Dosing 38.8 ml/min Est GFR ( Amer) 58.8 Est GFR (Non-Af Amer) 50.7 BUN/Creatinine Ratio 15.3 (10-20) Glucose 167 H (70-99) mg/dl Calcium 9.1 (8.5-10.1) mg/dl Phosphorus 2.6 (2.5-4.9) mg/dl Magnesium 2.3 (1.8-2.4) mg/dl Total Bilirubin 0.5 (0.2-1) mg/dl AST 17 (15-37) U/L ALT 20 (12-78) U/L Alkaline Phosphatase 73 (45-117) U/L Total Creatine Kinase 51 (26-192) U/L Troponin I < 0.015 (0-0.045) ng/ml Total Protein 7.7 (6.4-8.2) gm/dl Albumin 3.3 L (3.4-5.0) gm/dl Globulin 4.4 H (2.5-4.0) gm/dl Albumin/Globulin Ratio 0.7 L (0.9-2) 25-OH Vitamin D Total 25.6 L (30-100) ng/ml TSH 0.717 (0.300-4.500) uIu/ml Urine Color Urine Appearance (Clear) Urine pH (4.5-7.5) Ur Specific Amity (1.000-1.030) Urine Protein (Negative) Urine Glucose (UA) (Negative) Urine Ketones (Negative) Urine Blood (Negative) Urine Nitrite (Negative) Urine Bilirubin (Negative) Urine Urobilinogen (Negative) Ur Leukocyte Esterase (Negative) Urine WBC (Auto) (0-5) /hpf Urine RBC (Auto) (0-4) /hpf U Hyaline Cast (Auto) (0-5) /lpf U Epithel Cells (Auto) (0-5) /lpf Urine Bacteria (Auto) (Negative) 04/23/20 Range/Units 09:50 WBC (4.8-10.8) K/uL RBC (4.2-5.4) M/uL Hgb (12.0-16.0) g/dL Hct (37-47) % MCV (80-100) fL MCH (25-34) pg MCHC (32-36) g/dL RDW Std Deviation (36.4-46.3) fL RDW Coeff of Amber (11.5-14.5) % Plt Count (130-400) K/uL MPV (7.4-10.4) fL Immature Gran % (Auto) % Neut % (Auto) % Lymph % (Auto) % Winkler % (Auto) % Eos % (Auto) % Baso % (Auto) % Neut # (Auto) (1.4-6.5) K/uL Lymph # (Auto) (1.2-3.4) K/uL Winkler # (Auto) (0.11-0.59) K/uL Eos # (Auto) (0-0.5) K/uL Baso # (Auto) (0-0.2) K/uL Immature Gran # (Auto) (0.00-0.02) K/uL Sodium (136-145) mmol/L Potassium (3.5-5.1) mmol/L Chloride (98-107) mmol/L Carbon Dioxide (21-32) mmol/L Anion Gap (3-11) BUN (7-18) mg/dl Creatinine (0.6-1.2) mg/dl Est Cr Clr Drug Dosing ml/min Est GFR ( Amer) Est GFR (Non-Af Amer) BUN/Creatinine Ratio (10-20) Glucose (70-99) mg/dl Calcium (8.5-10.1) mg/dl Phosphorus (2.5-4.9) mg/dl Magnesium (1.8-2.4) mg/dl Total Bilirubin (0.2-1) mg/dl AST (15-37) U/L ALT (12-78) U/L Alkaline Phosphatase (45-117) U/L Total Creatine Kinase (26-192) U/L Troponin I (0-0.045) ng/ml Total Protein (6.4-8.2) gm/dl Albumin (3.4-5.0) gm/dl Globulin (2.5-4.0) gm/dl Albumin/Globulin Ratio (0.9-2) 25-OH Vitamin D Total (30-100) ng/ml TSH (0.300-4.500) uIu/ml Urine Color Yellow Urine Appearance Cloudy A (Clear) Urine pH 8.0 H (4.5-7.5) Ur Specific Amity 1.022 (1.000-1.030) Urine Protein Trace H (Negative) Urine Glucose (UA) Trace H (Negative) Urine Ketones Negative (Negative) Urine Blood Negative (Negative) Urine Nitrite Positive A (Negative) Urine Bilirubin Negative (Negative) Urine Urobilinogen Negative (Negative) Ur Leukocyte Esterase 2+ H (Negative) Urine WBC (Auto) >30 H (0-5) /hpf Urine RBC (Auto) 0-4 (0-4) /hpf U Hyaline Cast (Auto) 10-30 H (0-5) /lpf U Epithel Cells (Auto) 5-10 H (0-5) /lpf Urine Bacteria (Auto) 4+ H (Negative) Imaging Data Attestation: I personally reviewed and interpreted this imaging study as follows: My Impression: My interpretation of reportable chest x-ray does not show any consolidations, pneumothorax or cardiac prominence. My interpretation of a noncontrast CT of the head and cervical spine did not show any acute fractures or intracranial bleed. My interpretation of noncontrast CT imaging of the thoracolumbar spine shows wedge deformities of T11 and L5. My interpretation of a noncontrast CT of the pelvis and right hip confirms an acute nondisplaced right ischio pubic ramus fracture, and possible cortical step-off of the right femoral head/neck junction. Radiologist reports were also reviewed. Radiologist's Impression: XR chest 1V portable CLINICAL HISTORY: weakness dyspnea COMPARISON STUDY: 03/02/2020 FINDINGS: The bones soft tissues and hemidiaphragms are normal. The cardiomediastinal silhouette is normal. The lungs are clear. The pulmonary vasculature is normal. IMPRESSION: Negative chest. CT head/brain wo con CLINICAL HISTORY: Pain status post trauma COMPARISON STUDY: 06/14/2019 TECHNIQUE: Axial CT of the brain is performed from the vertex to the skull base. IV contrast was not administered for this examination. A dose lowering technique was utilized adhering to the principles of ALARA. CT DOSE: FINDINGS: No intra or extra-axial mass lesions are visualized. There is no CT evidence of acute cortical infarction. There is no evidence of midline shift. There is no acute hemorrhage. No calvarial fractures are visualized. Extensive There is mild ventricular dilatation, finding which is felt to be secondary to volume loss. There is no evidence of acute sinusitis IMPRESSION: No acute intracranial findings CT OF THE CERVICAL SPINE CLINICAL HISTORY: Neck pain status post trauma COMPARISON STUDY: No previous studies for comparison. CT DOSE: TECHNIQUE: CT scan of the cervical spine was performed from the skull base to the thoracic inlet. Images are reviewed in the axial, sagittal, and coronal planes. IV contrast was not administered for this examination. A dose lowering technique was utilized adhering to the principles of ALARA. FINDINGS: The visualized portions of the lung apices reveal no evidence of pneumothorax. The prevertebral soft tissues are normal. No fractures or subluxations are visualized. There are multilevel degenerative changes. 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 IMPRESSION: No evidence of acute fracture or traumatic subluxation. CT thoracic spine wo con CT DOSE: HISTORY: Trauma. Pain. Back pain from fall TECHNIQUE: Multiaxial CT images of the thoracic spine were performed and reformatted in the sagittal and coronal plane without the use of contrast. A dose lowering technique was utilized adhering to the principles of ALARA. COMPARISON: None. FINDINGS: Compression deformity L1 with an associated 5 kyphoplasty. This is considered old. Slight wedge deformity superior endplate T11 of indeterminate age. No evidence for a significant compression deformity. No significant compromise of the spinal canal. IMPRESSION: 1. Slight wedge deformity T11. 2. Compression deformity L1 consider old. 3. No significant compromise of the spinal canal or major acute compression deformity. CT lumbar spine wo con CT DOSE: 3892.71 mGy.cm HISTORY: Trauma. Pain. R hip/back pain from fall TECHNIQUE: Multiaxial CT images of the lumbar spine were performed and reformatted in the sagittal and coronal plane without the use of contrast. A dose lowering technique was utilized adhering to the principles of ALARA. COMPARISON: None. FINDINGS: Complete compression deformity L1 with an associated kyphoplasty. This most likely is nonacute. Generalized osteopenia/osteoporosis. Mild compression deformity superior endplate of L5 of uncertain age. No significant compromise of the spinal canal. Moderate degenerative change of the posterior elements throughout. IMPRESSION: 1. Mild wedge deformity superior endplate L5 of uncertain age. 2. Complete compression deformity with associated vertebroplasty of L1. This appears to be old. 3. Generalized osteopenia/osteoporosis 4. Moderate scoliosis. CT SCAN OF THE PELVIS WITHOUT IV CONTRAST CLINICAL HISTORY: Fall. Pelvic pain. COMPARISON STUDY: No priors. TECHNIQUE: CT scan of the pelvis is performed from the pelvic inlet to the proximal femora. Images are reviewed in the axial, sagittal, and coronal planes. IV contrast was not administered for this examination. A dose lowering technique was utilized adhering to the principles of ALARA. The examination is degraded by streak artifact from a left hip arthroplasty. FINDINGS: The skeletal structures are osteopenic. A unipolar left hip arthroplasty is in place. There are acute minimally displaced fractures of the right superior and inferior pubic ring. No additional acute fracture is ident ified. There are chronic/healed fractures of the left pubic ring and sacrum. A compression deformity of L5 is age indeterminate. There is no evidence of osteonecrosis of the right femoral head. Moderate degenerative joint space narrowing is seen in the right hip. There is generalized atrophy of the regional musculature. No hematoma is identified. The bladder is partially decompressed and grossly unremarkable. There are calcified uterine fibroids. No adnexal lesion is seen. There is no free fluid in the pelvis. Fecal retention is noted in the rectosigmoid region. There is no evidence of bowel obstruction. Atherosclerotic calcification is noted in the iliac arteries. There is no pelvic sidewall or inguinal adenopathy. IMPRESSION: 1. There are acute minimally displaced right pubic ring fractures. 2. No additional acute fracture is identified involving the hips or pelvis. 3. Chronic fractures as detailed above. CT hip RT wo con CT DOSE: CLINICAL HISTORY: Right hip pain status post trauma TECHNIQUE: Helical images were acquired in the transverse plane. Sagittal and coronal reformatted images were acquired. A dose lowering technique was utilized adhering to the principles of ALARA. COMPARISON STUDY: None FINDINGS: There are calcified uterine fibroids present. There are acute fractures of the right inferior pubic ramus. There is a subtle cortical step-off at the level of the femoral head neck junction. This could either represent a nondisplaced subcapital hip fracture or osteophyte. An MRI is recommended in follow-up. IMPRESSION: 1. Acute nondisplaced right ischio pubic ramus fracture 2. Subtle cortical step-off at the level of the right femoral head neck junction. This could either represent a nondisplaced subcapital hip fracture or osteophyte. An MRI is recommended in follow-up. ECG Data Attestation: I personally reviewed and interpreted this ECG as follows: Indication: + other (Unwitnessed fall, dementia) Rate (beats per minute): 88 Rhythm: + normal sinus ECG Intervals/blocks: + Normal QRS ECG [place]: + Normal Comparison ECG Date: from (03/02/2020) Change: no significant change Blood Pressure Blood Pressure Findings: Elevated blood pressure Blood Pressure Disposition: further management by hospitalist WILLA Schneider Patient presents to the emergency department for evaluation of injuries from an unwitnessed fall 2 days ago. Patient did have x-rays of the pelvis and right hip yesterday that were unremarkable; CT imaging today shows several vertebral compression fractures, as well as a right ischio pubic fracture and possible subtle right hip fracture. An MRI of the hip was suggested. Patient also has another UTI with moderate leukocytosis. The patient is currently afebrile, therefore I do not suspect sepsis. Mental status is difficult to evaluate secondary to dementia. Patient has no other electrolyte abnormalities. Checks x-ray and ECG are not suggestive of acute cardiopulmonary event. Troponin is also normal, therefore I do not suspect major cardiac event. The patient has no other unusual findings on physical exam to warrant additional peripheral x-rays. Impression & Plan Closed pelvic ring fracture, Acute UTI, Closed wedge compression fracture of T11 vertebra, Closed wedge compression fracture of L5 vertebra, [facility] at jail, Dementia Discharge Plan Visit Data *Final* Discharge Date/Time: 04/23/20 13:38 Chief Complaint: Hip Pain Stated Complaint: fall/ R hip pain / [facility] ED Provider: Magen Beltre ED Midlevel Provider: Geo Rodriguez Discharge Problem: Closed pelvic ring fracture, Acute UTI, Closed wedge compression fracture of T11 vertebra, Closed wedge compression fracture of L5 vertebra, Fall at jail, Dementia Patient Disposition: Admitted As Inpatient Discharge Instructions Interventions: ED Discharge Assessment Last Done: 04/23/20 13:38 Discharge Problem: Closed pelvic ring fracture Qualifiers: Encounter type: initial encounter Qualified Code(s): S32.810A - Multiple fractures of pelvis with stable disruption of pelvic ring, initial encounter for closed fracture Closed wedge compression fracture of T11 vertebra Qualifiers: Encounter type: initial encounter Qualified Code(s): S22.080A - Wedge compression fracture of T11-T12 vertebra, initial encounter for closed fracture Closed wedge compression fracture of L5 vertebra Qualifiers: Encounter type: initial encounter Qualified Code(s): S32.050A - Wedge compression fracture of fifth lumbar vertebra, initial encounter for closed fracture [facility] Qualifiers: Encounter type: initial encounter Qualified Code(s): W19.XXXA - Unspecified fall, initial encounter Dementia Qualifiers: Dementia type: unspecified type Dementia behavioral disturbance: without behavioral disturbance Qualified Code(s): F03.90 - Unspecified dementia without behavioral disturbance
[2020-04-23 10:00] LABS: Albumin Level 3.3 gm/dl (3.4-5.0); BUN Creatinine Ratio 15.3 (10-20); Blood Urea Nitrogen 16 mg/dl (7-18); Calcium 9.1 mg/dl (8.5-10.1); Carbon Dioxide 24 mmol/L (21-32); Chloride 110 mmol/L (98-107); Creatinine Clr Calc Pharmacy 38.8 ml/min; Est GFR (African American) 58.8; Est GFR (Non-African American) 50.7; Glucose 167 mg/dl (70-99); Magnesium 2.3 mg/dl (1.8-2.4); Potassium 3.8 mmol/L (3.5-5.1); Sodium 142 mmol/L (136-145)
[2020-04-23 10:01] LABS: Appearance Urine Cloudy (Clear); Bacteria Urine Automated 4+ (Negative); Bilirubin Urine Negative (Negative); Blood Urine Negative (Negative); Color Urine Yellow; Glucose Urine UA Trace (Negative); Ketones Urine Negative (Negative); Leukocyte Esterase Urine 2+ (Negative); Nitrite Urine Positive (Negative); RBC Urine Automated 0-4 /hpf (0-4); Specific Gravity Urine 1.022 (1.000-1.030); Urobilinogen Urine Negative (Negative); WBC Urine Automated >30 /hpf (0-5)
[2020-04-23 10:04] LABS: Protein Urine Trace (Negative)
[2020-04-23 10:09] LABS: Sulfosalicylic Acid Urine Positive (Negative)
[2020-04-23 10:11] LABS: Alanine Aminotransferase 20 U/L (12-78); Albumin Globulin Ratio 0.7 (0.9-2); Alkaline Phosphatase 73 U/L (45-117); Aspartate Aminotransferase 17 U/L (15-37); Bilirubin,Total 0.5 mg/dl (0.2-1); Creatine Kinase 51 U/L (26-192); Globulin 4.4 gm/dl (2.5-4.0); Phosphorus 2.6 mg/dl (2.5-4.9); Thyroid Stimulating Hormone 0.717 uIu/ml (0.300-4.500); Total Protein 7.7 gm/dl (6.4-8.2); Troponin I < 0.015 ng/ml (0-0.045)
[2020-04-23] MEDS ORDERED: cefTRIAXone SODIUM 2,000 MG/70 ML BAG IV STA (10:14)
--- NOTE | 2020-04-23 10:28 | CT Scan Report ---
CT head/brain wo con CLINICAL HISTORY: Pain status post trauma COMPARISON STUDY: 06/14/2019 TECHNIQUE: Axial CT of the brain is performed from the vertex to the skull base. IV contrast was not administered for this examination. A dose lowering technique was utilized adhering to the principles of ALARA. CT DOSE: FINDINGS: No intra or extra-axial mass lesions are visualized. There is no CT evidence of acute cortical infarc tion. There is no evidence of midline shift. There is no acute hemorrhage. No calvarial fractures ar e visualized. Extensive There is mild ventricular dilatation, finding which is felt to be secondary to volume loss. There is no evidence of acute sinusitis IMPRESSION: No acute intracranial findings ACT 112: Negative or not required by law. Electronically signed by: Mata Pinto M.D. 04/23/2020 10:27 AM
--- NOTE | 2020-04-23 10:30 | CT Scan Report ---
CT OF THE CERVICAL SPINE CLINICAL HISTORY: Neck pain status post trauma COMPARISON STUDY: No previous studies for comparison. CT DOSE: TECHNIQUE: CT scan of the cervical spine was performed from the skull base to the thoracic inlet. Sharda ges are reviewed in the axial, sagittal, and coronal planes. IV contrast was not administered for thi s examination. A dose lowering technique was utilized adhering to the principles of ALARA. FINDINGS: The visualized portions of the lung apices reveal no evidence of pneumothorax. The prevertebral soft tissues are normal. No fractures or subluxations are visualized. There are multilevel degenerative changes. 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 IMPRESSION: No evidence of acute fracture or traumatic subluxation. ACT 112: Negative or not required by law. Electronically signed by: Mata Pinto M.D. 04/23/2020 10:29 AM
--- NOTE | 2020-04-23 10:30 | CT Scan Report ---
CT lumbar spine wo con CT DOSE: 3892.71 mGy.cm HISTORY: Trauma. Pain. R hip/back pain from fall TECHNIQUE: Multiaxial CT images of the lumbar spine were performed and reformatted in the sagittal an d coronal plane without the use of contrast. A dose lowering technique was utilized adhering to the principles of ALARA. COMPARISON: None. FINDINGS: Complete compression deformity L1 with an associated kyphoplasty. This most likely is nonac [place]. Generalized osteopenia/osteoporosis. Mild compression deformity superior endplate of L5 of uncertain age. No significant compromise of the spinal canal. Moderate degenerative change of the posterior elements throughout. IMPRESSION: 1. Mild wedge deformity superior endplate L5 of uncertain age. 2. Complete compression deformity with associated vertebroplasty of L1. This appears to be old. 3. Generalized osteopenia/osteoporosis 4. Moderate scoliosis. ACT 112: Negative or not required by law. The above report was generated using voice recognition software. It may contain grammatical, syntax or spelling errors. Electronically signed by: Jonny Butt M.D. 04/23/2020 10:29 AM
--- NOTE | 2020-04-23 10:35 | CT Scan Report ---
CT hip RT wo con CT DOSE: CLINICAL HISTORY: Right hip pain status post trauma TECHNIQUE: Helical images were acquired in the transverse plane. Sagittal and coronal reformatted reagan ges were acquired. A dose lowering technique was utilized adhering to the principles of ALARA. COMPARISON STUDY: None FINDINGS: There are calcified uterine fibroids present. There are acute fractures of the right inferior pubic ramus. There is a subtle cortical step-off at the level of the femoral head neck junction. This could either represent a nondisplaced subcapital hip fracture or osteophyte. An MRI is recommended in follow-up. IMPRESSION: 1. Acute nondisplaced right ischio pubic ramus fracture 2. Subtle cortical step-off at the level of the right femoral head neck junction. This could either r epresent a nondisplaced subcapital hip fracture or osteophyte. An MRI is recommended in follow-up. ACT 112: Negative or not required by law. Electronically signed by: Mata Pinto M.D. 04/23/2020 10:34 AM
--- NOTE | 2020-04-23 10:36 | CT Scan Report ---
CT thoracic spine wo con CT DOSE: HISTORY: Trauma. Pain. Back pain from fall TECHNIQUE: Multiaxial CT images of the thoracic spine were performed and reformatted in the sagittal and coronal plane without the use of contrast. A dose lowering technique was utilized adhering to th e principles of ALARA. COMPARISON: None. FINDINGS: Compression deformity L1 with an associated 5 kyphoplasty. This is considered old. Slight wedge deformity superior endplate T11 of indeterminate age. No evidence for a significant compression deformity. No significant compromise of the spinal canal. IMPRESSION: 1. Slight wedge deformity T11. 2. Compression deformity L1 consider old. 3. No significant compromise of the spinal canal or major acute compression deformity. ACT 112: Negative or not required by law. The above report was generated using voice recognition software. It may contain grammatical, syntax or spelling errors. Electronically signed by: Jonny Butt M.D. 04/23/2020 10:35 AM
--- NOTE | 2020-04-23 11:09 | CT Scan Report ---
CT SCAN OF THE PELVIS WITHOUT IV CONTRAST CLINICAL HISTORY: Fall. Pelvic pain. COMPARISON STUDY: No priors. TECHNIQUE: CT scan of the pelvis is performed from the pelvic inlet to the proximal femora. Images ar e reviewed in the axial, sagittal, and coronal planes. IV contrast was not administered for this exam ination. A dose lowering technique was utilized adhering to the principles of ALARA. The examination is degraded by streak artifact from a left hip arthroplasty. FINDINGS: The skeletal structures are osteopenic. A unipolar left hip arthroplasty is in place. There are acute minimally displaced fractures of the right superior and inferior pubic ring. No additional acute fracture is identified. There are chronic/healed fractures of the left pubic ring and sacrum. A compression deformity of L5 is age indeterminate. There is no evidence of osteonecrosis of the righ t femoral head. Moderate degenerative joint space narrowing is seen in the right hip. There is generalized atrophy of the regional musculature. No hematoma is identified. The bladder is p artially decompressed and grossly unremarkable. There are calcified uterine fibroids. No adnexal lesi on is seen. There is no free fluid in the pelvis. Fecal retention is noted in the rectosigmoid region . There is no evidence of bowel obstruction. Atherosclerotic calcification is noted in the iliac mary jasmine. There is no pelvic sidewall or inguinal adenopathy. IMPRESSION: 1. There are acute minimally displaced right pubic ring fractures. 2. No additional acute fracture is identified involving the hips or pelvis. 3. Chronic fractures as detailed above. ACT 112: Negative or not required by law. Dictated: 04/23/2020 10:32 AM Transcribed: 04/23/2020 10:54 AM [place] [id number] [email or web address] Electronically signed by: Saulo Ceballos M.D. 04/23/2020 11:08 AM
--- NOTE | 2020-04-23 12:46 | History & Physical Report ---
Date of Service April 23, 2020 Assessment & Plan (1) Fall: (2) Fractures: Unwitnessed fall CT scans showing acute minimally displaced fractures of the right superior and inferior pubic ring and other old fractures Get ortho eval Pain control Fall precautions (3) Possible urinary tract infection: UA shows pyuria Will treat considering patient's dementia, inability to provide history Follow up urine culture Continue ceftriaxone (4) Hypertension: Poorly controlled hypertension Likely due to pain as well Control pain Continue home antihypertensives Monitor BP and manage appropriately (5) Hypothyroidism: Continue home levothyroxine (6) DVT prophylaxis: Hep sq for now CODE STATUS : Spoke with Daughter Felisa (POA) [phone]. FULL CODE History of Present Illness 79 year old with dementia who was brought from [facility] for right hip pain after an unwitnessed fall 2 days ago. She was found on the flow and had difficulty ambulating. Per records from [place], mobile XR fo right hip/pelvis did not show acute fracture. However, patient continued to have pain necessitating ER presentation Patient cannot provide any history due to dementia Difficulty assessing pain as patient is not able to. Limited ROS due to dementia Primary Care Provider: [facility] Allergies Allergy/AdvReac Type Severity Reaction Status Date / Time buspirone [From BuSpar] Allergy Unknown Unknown Verified 04/23/20 09:27 cefuroxime [From Ceftin] Allergy Unknown Unknown Verified 04/23/20 09:27 codeine Allergy Unknown Unknown Verified 04/23/20 09:27 diclofenac [From Voltaren] Allergy Unknown Unknown Verified 04/23/20 09:27 metronidazole [From Flagyl] Allergy Unknown Unknown Verified 04/23/20 09:27 Penicillins Allergy Unknown Unknown Verified 04/23/20 09:27 Home Medications Home Medications Medication Instructions Recorded Confirmed Type Child Complete Multivitamin 18 mg PO DAILY@89906/14/19 04/23/20 History acetaminophen 1,000 mg PO BID 06/14/19 04/23/20 History aspirin 81 mg PO DAILY@89906/14/19 04/23/20 History bupropion HCl 300 mg PO DAILY@89906/14/19 04/23/20 History calcium carbonate [Calcium 600] 600 mg PO BID 06/14/19 04/23/20 History calcium carbonate [Tums] 1,500 mg PO Q2H PRN 06/14/19 04/23/20 History cholecalciferol (vitamin D3) 400 unit PO DAILY@0900 06/14/19 04/23/20 History [Vitamin D3] donepezil 10 mg PO DAILY@1700 06/14/19 04/23/20 History potassium chloride 8 meq PO DAILY@0900 06/14/19 04/23/20 History promethazine 12.5 mg PO Q6H PRN 06/14/19 04/23/20 History simvastatin 40 mg PO DAILY@1700 06/14/19 04/23/20 History venlafaxine 37.5 mg PO DAILY@0900 06/14/19 04/23/20 History ciprofloxacin HCl 500 mg PO UD #10 tab 06/16/19 04/23/20 Rx levothyroxine 88 mcg PO DAILY@0603/02/20 04/23/20 History lisinopril 20 mg PO DAILY@0803/02/20 04/23/20 History acetaminophen 1,000 mg PO Q4H PRN 04/23/20 04/23/20 History amlodipine 5 mg PO DAILY 04/23/20 04/23/20 History loratadine 10 mg PO DAILY PRN 04/23/20 04/23/20 History Past Med/Surg History Medical History Acute UTI (Acute) Arthritis Depression Falls Hypercholesterolemia Hypertension Hypothyroidism Memory loss Metabolic encephalopathy Osteopenia Weight loss Surgical History History of left hip replacement Surgical history unknown Family History Other Family history non-contributory Social History Preferred Language: Upper Sorbian Communication Ability: Impaired Telemarketer Required: No Beliefs That Will Affect Care: None marital status: Single Current Living Situation: [facility] Current Living Situation Comment: adriane dueñas current occupational status: retired Other Information That Helps Us Care for You: No other: POA/daughter is Felisa Rae ([phone]) of [employer] Feels Safe at Home: Yes Safety Concerns: Feels Safe At This Time Smoking Status: Never smoker Hx Alcohol Use: No Hx Substance Use: No Review of Systems Review of Systems: Unobtainable due to cognitive status Physical Exam Constitutional: + well hydrated; no acute distress Eyes: PERRL, conjunctivae normal, anicteric sclerae ENMT: external ear and nose normal, oropharynx normal Respiratory: normal respiratory effort, lungs clear to auscultation Cardiovascular: Rate/Rhythm: regular rate and regular rhythm Heart Sounds: normal S1 and normal S2 Extremities: no pedal edema Gastrointestinal (Abdomen): normal bowel sounds, soft, nontender, no hepatosplenomegaly Musculoskeletal: Reported pain with passive ROM of right leg. No tenderness on palpation over both legs Neurologic: Awake, alert, disoriented. Not following commands appropriate Results & Data Results & Data ([facility]) Vital Signs (Past 12 Hours) Vital Signs Temp Pulse Pulse Resp BP BP Pulse Ox 04/23/20 11:30 93 H 16 188/96 H 94 04/23/20 11:00 90 19 181/97 H 94 04/23/20 10:30 85 15 187/90 H 95 04/23/20 10:29 87 20 197/94 H 94 04/23/20 09:36 94 04/23/20 09:11 37.4 C 90 18 171/83 H 94 Laboratory Results Laboratory Results - last 24 hr 04/23/20 04/23/20 04/23/20 09:35 09:35 09:50 WBC 14.35 H RBC 4.59 Hgb 13.9 Hct 42.5 MCV 92.6 MCH 30.3 MCHC 32.7 RDW Std Deviation 49.3 H RDW Coeff of Amber 14.5 Plt Count 279 MPV 9.9 Immature Gran % (Auto) 0.4 Neut % (Auto) 82.3 Lymph % (Auto) 8.2 Moore % (Auto) 6.1 Eos % (Auto) 2.7 Baso % (Auto) 0.3 Neut # (Auto) 11.81 H Lymph # (Auto) 1.18 L Moore # (Auto) 0.87 H Eos # (Auto) 0.39 Baso # (Auto) 0.04 Immature Gran # (Auto) 0.06 H Sodium 142 Potassium 3.8 Chloride 110 H Carbon Dioxide 24 Anion Gap 8.0 BUN 16 Creatinine 1.04 Est Cr Clr Drug Dosing 38.8 Est GFR ( Amer) 58.8 Est GFR (Non-Af Amer) 50.7 BUN/Creatinine Ratio 15.3 Glucose 167 H Calcium 9.1 Phosphorus 2.6 Magnesium 2.3 Total Bilirubin 0.5 AST 17 ALT 20 Alkaline Phosphatase 73 Total Creatine Kinase 51 Troponin I < 0.015 Total Protein 7.7 Albumin 3.3 L Globulin 4.4 H Albumin/Globulin Ratio 0.7 L TSH 0.717 Urine Color Yellow Urine Appearance Cloudy A Urine pH 8.0 H Ur Specific [place] 1.022 Urine Protein Trace H Urine Glucose (UA) Trace H Urine Ketones Negative Urine Blood Negative Urine Nitrite Positive A Urine Bilirubin Negative Urine Urobilinogen Negative Ur Leukocyte Esterase 2+ H Urine WBC (Auto) >30 H Urine RBC (Auto) 0-4 U Hyaline Cast (Auto) 10-30 H U Epithel Cells (Auto) 5-10 H Urine Bacteria (Auto) 4+ H SARS-CoV-2 RNA (RT-PCR) 04/23/20 11:45 WBC RBC Hgb Hct MCV MCH MCHC RDW Std Deviation RDW Coeff of Amber Plt Count MPV Immature Gran % (Auto) Neut % (Auto) Lymph % (Auto) Moore % (Auto) Eos % (Auto) Baso % (Auto) Neut # (Auto) Lymph # (Auto) Moore # (Auto) Eos # (Auto) Baso # (Auto) Immature Gran # (Auto) Sodium Potassium Chloride Carbon Dioxide Anion Gap BUN Creatinine Est Cr Clr Drug Dosing Est GFR ( Amer) Est GFR (Non-Af Amer) BUN/Creatinine Ratio Glucose Calcium Phosphorus Magnesium Total Bilirubin AST ALT Alkaline Phosphatase Total Creatine Kinase Troponin I Total Protein Albumin Globulin Albumin/Globulin Ratio TSH Urine Color Urine Appearance Urine pH Ur Specific [place] Urine Protein Urine Glucose (UA) Urine Ketones Urine Blood Urine Nitrite Urine Bilirubin Urine Urobilinogen Ur Leukocyte Esterase Urine WBC (Auto) Urine RBC (Auto) U Hyaline Cast (Auto) U Epithel Cells (Auto) Urine Bacteria (Auto) SARS-CoV-2 RNA (RT-PCR) Pending Diagnostic Findings Thoracic CT 1. Slight wedge deformity T11. 2. Compression deformity L1 consider old. 3. No significant compromise of the spinal canal or major acute compression deformity. Pelvic CT FINDINGS: The skeletal structures are osteopenic. A unipolar left hip arthroplasty is in place. There are acute minimally displaced fractures of the right superior and inferior pubic ring. No additional acute fracture is identified. There are chronic/healed fractures of the left pubic ring and sacrum. A compression deformity of L5 is age indeterminate. There is no evidence of osteonecrosis of the right femoral head. Moderate degenerative joint space narrowing is seen in the right hip. There is generalized atrophy of the regional musculature. No hematoma is identified. The bladder is partially decompressed and grossly unremarkable. There are calcified uterine fibroids. No adnexal lesion is seen. There is no free fluid in the pelvis. Fecal retention is noted in the rectosigmoid region. There is no evidence of bowel obstruction. Atherosclerotic calcification is noted in the iliac arteries. There is no pelvic sidewall or inguinal adenopathy. IMPRESSION: 1. There are acute minimally displaced right pubic ring fractures. 2. No additional acute fracture is identified involving the hips or pelvis. 3. Chronic fractures as detailed above. Lumbar CT 1. Mild wedge deformity superior endplate L5 of uncertain age. 2. Complete compression deformity with associated vertebroplasty of L1. This appears to be old. 3. Generalized osteopenia/osteoporosis 4. Moderate scoliosis. Hip CT 1. Mild wedge deformity superior endplate L5 of uncertain age. 2. Complete compression deformity with associated vertebroplasty of L1. This appears to be old. 3. Generalized osteopenia/osteoporosis 4. Moderate scoliosis. Code Status & VTE Plan VTE Prophylaxis Plan VTE Prophylaxis will be ordered: Yes
[2020-04-23] MEDS ORDERED: MoRPHine SULFATE 2 MG/ML CARP IV PRN (14:03)
--- NOTE | 2020-04-23 15:36 | Electrocardiogram Report ---
Test Reason : Blood Pressure : / mmHG Vent. 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
[2020-04-23] MEDS: HEPARIN SOD 5,000 UNIT/0.5 ML VIAL SQ SCH ×2 (16:04→22:02)
[2020-04-23] MEDS: ACETAMINOPHEN 325 MG TAB PO SCH ×2 (16:16→20:32)
[2020-04-23] MEDS: SIMVASTATIN 40 MG TAB PO SCH (16:17)
[2020-04-23] MEDS: DONEPEZIL HCL 10 MG TAB PO SCH (16:17)
[2020-04-23] MEDS ORDERED: AMLODIPINE BESYLATE 5 MG TAB PO ONE (16:24)
[2020-04-23] MEDS: CALCIUM CARBONATE 1250MG TAB PO SCH (20:32)
[2020-04-24] MEDS: ACETAMINOPHEN 325 MG TAB PO SCH ×4 (02:10→21:17)
[2020-04-24] MEDS: HEPARIN SOD 5,000 UNIT/0.5 ML VIAL SQ SCH ×3 (05:36→21:17)
[2020-04-24] MEDS: LEVOTHYROXINE SODIUM 88 MCG TABLET PO SCH (05:37)
[2020-04-24 06:30] LABS: Hematocrit (blood only) 42.6 % (37-47); Hemoglobin 13.7 g/dL (12.0-16.0); Mean Corpuscular Hemoglobin 29.6 pg (25-34); Mean Corpuscular Hgb Conc 32.2 g/dL (32-36); Mean Platelet Volume 9.9 fL (7.4-10.4); Platelet Count 245 K/uL (130-400); RDW Coefficient of Variation 14.8 % (11.5-14.5); RDW Standard Deviation 49.9 fL (36.4-46.3); Red Blood Count 4.63 M/uL (4.2-5.4); White Blood Count 12.32 K/uL (4.8-10.8)
[2020-04-24 07:06] LABS: BUN Creatinine Ratio 20.8 (10-20); Calcium 8.7 mg/dl (8.5-10.1); Creatinine Clr Calc Pharmacy 48.1 ml/min; Est GFR (African American) 76.1; Est GFR (Non-African American) 65.6; Potassium 3.5 mmol/L (3.5-5.1)
--- NOTE | 2020-04-24 08:02 | Consultation Report ---
DATE OF CONSULTATION: 04/23/2020 ORTHOPEDIC CONSULTATION REASON FOR CONSULT: Pelvic fracture. HISTORY OF PRESENT ILLNESS: The patient is an 79-year-old white female who resides at [facility] skilled facility. She has a history of dementia and history is being taken from the chart at this time. Apparently, the patient had an unwitnessed fall approximately 2 days ago and was having some difficulty ambulating. X-rays were taken at that time from a portable unit and showed no acute fracture. The patient continued to have pain with ambulation difficulties and was brought to the Emergency Room for evaluation. CT scans were taken and showed a minimally displaced right ischiopubic ramus fracture. It is noted her white count was elevated and the patient had a possible UTI as well. She was admitted by the [facility] and we have been asked to see her for her pubic ramus fracture. PAST MEDICAL HISTORY: Dementia, hypothyroidism, hypertension, hyperlipidemia, depression, osteoporosis. PAST SURGICAL HISTORY: Cataract surgeries, she has had bilateral knee arthroscopies, history of compression fractures with kyphoplasty and hemiarthroplasty of the hip, left. FAMILY HISTORY: Noncontributory. SOCIAL HISTORY: The patient resides at a skilled facility, was a smoker but quit many, many years ago. REVIEW OF SYSTEMS: The patient currently with dementia and a poor historian. PHYSICAL EXAMINATION: GENERAL: The patient is an 79-year-old white female who is currently sitting up in her bed with a food tray in front of her and she is slowly eating her lunch. She does not verbalize any answer to questions, but she does nod yes or no to some of the questions that we discussed. EXTREMITIES: Focusing on the right lower extremity, leg lengths appear equal. She has good range of motion of her right ankle and toes and denies any decreased sensation. She is nontender of the right knee on palpation and when trying to do some gentle internal and external rotation of the hip causes her some discomfort. She does not tolerate much in the way of further flexion than what she is already sitting up in bed, just increasing the flexion angle to approximately 10 degrees causes her discomfort in the groin and the hip. She is mildly tender on the lateral side of the hip itself. She has no pain on palpation of the left hip, left knee or left ankle. Straight leg raise does cause a little bit of discomfort in the low back. There is no tenderness noted in the shoulders, elbows and wrists and she is currently feeding herself fairly readily without needing help. Distal pulses are equal bilaterally of the upper and lower extremities. There appears to be no gross motor or sensory loss seen at this time. IMAGING: X-ray review showing a CT of the hip and pelvis the nondisplaced right ischiopubic ramus fracture. There was a subtle cortical step-off noted at the level of the right femoral head at the head and neck junction. This was reviewed by Dr. Jarrett and myself and it is felt to be osteophyte rather than fracture. ASSESSMENT: Right ischiopubic ramus fracture. PLAN: The patient can be partial weightbearing in the right lower extremity pending input from the spine team for her compression fractures. At this time, it is felt that she does not have any type of hip fracture; however, if her pain worsens, repeat x-rays or an MRI of the right hip might be warranted. Thank you for this consult. Attending Addendum: Patient seen and examined personally, agree with above assessment and plan. Patient may participate in PT/OT when medically stable. PWB RLE, ambulate with assistive device such as a walker. Follow up in office with Dr. Jarrett in 4 weeks for XRs, call office to confirm date and time of appointment at [phone]. Thank you. BRANDON
[2020-04-24] MEDS: lisinopriL 20 MG TAB PO SCH (09:00)
[2020-04-24] MEDS: CHOLECALCIFEROL (VITAMIN D) 400 UNITS TABLET PO SCH (09:12)
[2020-04-24] MEDS: FLINTSTONES COMPLETE CHEWABLE TAB PO SCH (09:12)
[2020-04-24] MEDS: CALCIUM CARBONATE 1250MG TAB PO SCH ×2 (09:13→21:17)
[2020-04-24] MEDS: BuPROPion XL 300 MG TABCR PO SCH (09:14)
[2020-04-24] MEDS: cefTRIAXone SODIUM 1,000 MG in DEXTROSE 5% 50 ML IV SCH (09:14)
[2020-04-24] MEDS: AMLODIPINE BESYLATE 5 MG TAB PO SCH (09:14)
[2020-04-24] MEDS: POTASSIUM CHLORIDE 10 MEQ TABCR PO SCH (09:15)
[2020-04-24] MEDS: VENLAFAXINE HCL 37.5 MG TAB PO SCH (09:16)
[2020-04-24] MEDS: ASPIRIN 81 MG ECTAB PO SCH (09:16)
--- NOTE | 2020-04-24 14:57 | Hospitalist Progress Note ---
Date of Service April 24, 2020 Assessment & Plan (1) Fall: possible 2/2 UTI. Resulted in pelvic fracture. Nonoperable. PT/OT to assess with rehab at SNF as transition back home. (2) Closed pelvic ring fracture: supportive care as above. Per Ortho, right partial weight bearing ok. Pending PT and OT assessments. Cont scheduled APAP to help temper any pain that might be present. (3) Acute UTI: Rocephin pending culture results. (4) Hypertension: at goal on home regimen of lisinopril 20mg daily (5) Hypothyroidism: Continue home levothyroxine (6) Closed wedge compression fracture of T11 vertebra: pending ortho spine evaluation (7) Closed wedge compression fracture of L5 vertebra: same as above. (8) Dementia: end stage. Appears to be at her baseline. High risk for delirium in the hospital with infection and fractures. Reorient her as necessary. Maintain good day/night cycles. (9) DVT prophylaxis: heparin SQ Full Code Dispo-to SNF pending PT/OT evaluations. Shanna Delgado DO [facility] Hospitalist Admission and Anticipated Discharge Date Admission Date: April 23, 2020 Subjective altered at baseline, cannot obtain a ROS. Denies any pain. Review of Systems Review of Systems: Unobtainable due to mental health condition Physical Exam Physical Exam: CONSTITUTIONAL: WNWD, vitals as above, generally well- appearing EYES: normal conjunctivae, no scleral icterus ENT: external ear and nose normal, MMM RESPIRATORY: clear to auscultation bilaterally, no crackles, rales or wheezes, normal respiratory effort . Limited exam as patient will not cooperate with exam and take deep breaths. CARDIOVASCULAR: regular rate and rhythm, S1 and 2 heard without murmurs, gallops or rubs, no JVD, no peripheral edema GASTROINTESTINAL: normal bowel sounds, soft, nontender, nondistended MUSCULOSKELETAL: difficult to assess as she has trouble moving around secondary to fracture and has difficulty following instructions. SKIN: warm and dry NEUROLOGIC: CN 2-12 grossly intact, dementia present PSYCHIATRIC: alert and disoriented to place and time. Oriented to self. Cannot follow instructions well. Results & Data Results & Data ([facility]) Vital Signs (Past 12 Hours) Vital Signs Temp Pulse Resp BP Pulse Ox 04/24/20 09:09 37.4 C 87 16 171/79 H 93 Laboratory Results Short CBC 07/15/20 Range/Units 06:10 WBC 12.32 H (4.8-10.8) K/uL Hgb 13.7 (12.0-16.0) g/dL Hct 42.6 (37-47) % Plt Count 245 (130-400) K/uL BMP 04/24/20 06:10 Sodium 142 Potassium 3.5 Chloride 110 H Carbon Dioxide 25 BUN 17 Creatinine 0.84 Glucose 125 H Calcium 8.7 Medications Administered Current Inpatient Medications Acetaminophen (Tylenol) 650 mg PO Q6H [facility] Stop: 05/23/20 14:02 Last Admin: 04/24/20 09:00 Dose: 650 mg Documented by: Amlodipine Besylate (Norvasc) 5 mg PO DAILY [facility] Stop: 05/24/20 08:59 Last Admin: 04/24/20 09:14 Dose: 5 mg Documented by: Aspirin (Ecotrin Ectab) 81 mg PO DAILY@0900 [facility] Stop: 05/24/20 08:59 Last Admin: 04/24/20 09:16 Dose: 81 mg Documented by: Bupropion HCl (Wellbutrin-Xl) 300 mg PO DAILY@0900 [facility] Stop: 05/24/20 08:59 Last Admin: 04/24/20 09:14 Dose: 300 mg Documented by: Calcium Carbonate (Os-Shree 500) 1,250 mg PO BID [facility] Stop: 05/23/20 20:59 Last Admin: 04/24/20 09:13 Dose: 1,250 mg Documented by: Donepezil HCl (Aricept) 10 mg PO DAILY@1700 [facility] Stop: 05/23/20 16:59 Last Admin: 04/23/20 16:17 Dose: 10 mg Documented by: Heparin Sodium (Porcine) (Heparin Sodium (Porcine)) 5,000 units SQ Q8 [facility] Stop: 05/23/20 14:02 Last Admin: 04/24/20 05:36 Dose: Not Given Documented by: Ceftriaxone Sodium 1,000 mg/ (Dextrose) 50 mls @ 100 mls/hr IV Q24H [facility]; Protocol Stop: 05/03/20 09:59 Last Infusion: 04/24/20 09:44 Dose: Infused Documented by: Levothyroxine Sodium (Synthroid) 88 mcg PO DAILY@0600 [facility] Stop: 05/24/20 05:59 Last Admin: 04/24/20 05:37 Dose: Not Given Documented by: Lisinopril (Zestril) 20 mg PO DAILY@0800 [facility] Stop: 05/24/20 07:59 Last Admin: 04/24/20 09:00 Dose: 20 mg Documented by: Morphine Sulfate (Morphine Sulfate) 2 mg IV Q4H PRN PRN Reason: Pain Stop: 05/07/20 14:02 Multivitamins/Folic Acid/Vitamin C (Flintstones Complete Chew Tab) 1 tab PO DAILY@0900 [facility] Stop: 05/24/20 08:59 Last Admin: 04/24/20 09:12 Dose: 1 tab Documented by: Potassium Chloride (Klor-Con M10) 10 meq PO DAILY@0900 [facility] Stop: 05/24/20 08:59 Last Admin: 04/24/20 09:15 Dose: 10 meq Documented by: Simvastatin (Zocor) 40 mg PO DAILY@1700 [facility] Stop: 05/23/20 16:59 Last Admin: 04/23/20 16:17 Dose: 40 mg Documented by: Venlafaxine HCl (Effexor) 37.5 mg PO DAILY@0900 [facility] Stop: 05/24/20 08:59 Last Admin: 04/24/20 09:16 Dose: 37.5 mg Documented by: Vitamin D (Vitamin D3) 400 units PO DAILY@0900 [facility] Stop: 05/24/20 08:59 Last Admin: 04/24/20 09:12 Dose: 400 units Documented by: (1) Closed pelvic ring fracture Encounter type: initial encounter Qualified Code(s): S32.810A - Multiple fractures of pelvis with stable disruption of pelvic ring, initial encounter for closed fracture (2) Closed wedge compression fracture of T11 vertebra Encounter type: initial encounter Qualified Code(s): S22.080A - Wedge compression fracture of T11-T12 vertebra, initial encounter for closed fracture (3) Closed wedge compression fracture of L5 vertebra Encounter type: initial encounter Qualified Code(s): S32.050A - Wedge compression fracture of fifth lumbar vertebra, initial encounter for closed fracture (4) Dementia Dementia behavioral disturbance: without behavioral disturbance Dementia type: unspecified type Qualified Code(s): F03.90 - Unspecified dementia without behavioral disturbance
[2020-04-24] MEDS: SIMVASTATIN 40 MG TAB PO SCH (18:00)
[2020-04-24] MEDS: DONEPEZIL HCL 10 MG TAB PO SCH (18:00)
[2020-04-24] MEDS: SODIUM CHLORIDE 0.9% 1000ML 1,000 ML IV SCH (19:51)
[2020-04-25] MEDS: ACETAMINOPHEN 325 MG TAB PO SCH ×4 (02:03→19:36)
[2020-04-25] MEDS: SODIUM CHLORIDE 0.9% 1000ML 1,000 ML IV SCH (04:16)
[2020-04-25] MEDS: LEVOTHYROXINE SODIUM 88 MCG TABLET PO SCH (06:24)
[2020-04-25] MEDS: HEPARIN SOD 5,000 UNIT/0.5 ML VIAL SQ SCH ×3 (06:24→21:17)
--- NOTE | 2020-04-25 08:21 | Orthopedic Consultation ---
Date of Consultation April 25, 2020 Assessment & Plan (1) Closed wedge compression fracture of T11 vertebra: At this time she does have a compression fracture of T11 and L5 they appear to be old based on her complaints. I would not recommend any specific therapy outside of her treatment plan for the pelvic fractures. No need for follow-up at this time. Present on Admission?: Yes History of Present Illness Reason for Consultation: Pelvic fracture Attending Physician: Shanna Delgado, DO History of Present Illness This is an 79-year-old female that presents with a pelvic fracture and compression fractures of the thoracolumbar spine in various stages of healing. This morning she is unable to recall any event that may have precipitated her fractures. She denies any pain. She denies any difficulty sitting up. She denies any numbness tingling or radicular complaints to the lower extremities. Allergies Allergy/AdvReac Type Severity Reaction Status Date / Time buspirone [From BuSpar] Allergy Unknown Unknown Verified 04/23/20 09:27 cefuroxime [From Ceftin] Allergy Unknown Unknown Verified 04/23/20 09:27 codeine Allergy Unknown Unknown Verified 04/23/20 09:27 diclofenac [From Voltaren] Allergy Unknown Unknown Verified 04/23/20 09:27 metronidazole [From Flagyl] Allergy Unknown Unknown Verified 04/23/20 09:27 Penicillins Allergy Unknown Unknown Verified 04/23/20 09:27 Home Medications Home Medications Medication Instructions Recorded Confirmed Type Child Complete Multivitamin 18 mg PO DAILY@89906/14/19 04/23/20 History acetaminophen 1,000 mg PO BID 06/14/19 04/23/20 History aspirin 81 mg PO DAILY@89906/14/19 04/23/20 History bupropion HCl 300 mg PO DAILY@89906/14/19 04/23/20 History calcium carbonate [Calcium 600] 600 mg PO BID 06/14/19 04/23/20 History calcium carbonate [Tums] 1,500 mg PO Q2H PRN 06/14/19 04/23/20 History cholecalciferol (vitamin D3) 400 unit PO DAILY@89906/14/19 04/23/20 History [Vitamin D3] donepezil 10 mg PO DAILY@1700 06/14/19 04/23/20 History potassium chloride 8 meq PO DAILY@0900 06/14/19 04/23/20 History promethazine 12.5 mg PO Q6H PRN 06/14/19 04/23/20 History simvastatin 40 mg PO DAILY@1700 06/14/19 04/23/20 History venlafaxine 37.5 mg PO DAILY@0900 06/14/19 04/23/20 History ciprofloxacin HCl 500 mg PO UD #10 tab 06/16/19 04/23/20 Rx levothyroxine 88 mcg PO DAILY@0603/02/20 04/23/20 History lisinopril 20 mg PO DAILY@79903/02/20 04/23/20 History acetaminophen 1,000 mg PO Q4H PRN 04/23/20 04/23/20 History amlodipine 5 mg PO DAILY 04/23/20 04/23/20 History loratadine 10 mg PO DAILY PRN 04/23/20 04/23/20 History Patient History Medical History Acute UTI (Acute) Arthritis Depression Falls Hypercholesterolemia Hypertension Hypothyroidism Memory loss Metabolic encephalopathy Osteopenia Weight loss Surgical History History of left hip replacement Surgical history unknown Family History Other Family history non-contributory Social History Preferred Language: Georgian 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 She has reasonable strength testing lower extremities. She did not appear to be in acute distress. Results & Data ([facility]) Vital Signs (Past 12 Hours) Vital Signs Temp Pulse Resp BP BP Pulse Ox 04/25/20 07:51 37 C 74 18 171/74 H 93 04/25/20 02:06 161/86 H 04/24/20 23:09 37.1 C 90 20 176/92 H 93 (1) Closed wedge compression fracture of T11 vertebra Encounter type: initial encounter Qualified Code(s): S22.080A - Wedge compression fracture of T11-T12 vertebra, initial encounter for closed fracture
[2020-04-25] MEDS: lisinopriL 20 MG TAB PO SCH (09:00)
[2020-04-25] MEDS: ASPIRIN 81 MG ECTAB PO SCH (09:26)
[2020-04-25] MEDS: CALCIUM CARBONATE 1250MG TAB PO SCH ×2 (09:26→20:02)
[2020-04-25] MEDS: AMLODIPINE BESYLATE 5 MG TAB PO SCH (09:26)
[2020-04-25] MEDS: VENLAFAXINE HCL 37.5 MG TAB PO SCH (09:27)
[2020-04-25] MEDS: CHOLECALCIFEROL (VITAMIN D) 400 UNITS TABLET PO SCH (09:27)
[2020-04-25] MEDS: FLINTSTONES COMPLETE CHEWABLE TAB PO SCH (09:36)
[2020-04-25] MEDS: BuPROPion XL 300 MG TABCR PO SCH (09:36)
[2020-04-25] MEDS: POTASSIUM CHLORIDE 10 MEQ TABCR PO SCH (09:37)
[2020-04-25] MEDS: cefTRIAXone SODIUM 1,000 MG in DEXTROSE 5% 50 ML IV SCH (10:00)
[2020-04-25] MEDS: SIMVASTATIN 40 MG TAB PO SCH (16:34)
[2020-04-25] MEDS: DONEPEZIL HCL 10 MG TAB PO SCH (16:34)
--- NOTE | 2020-04-25 20:46 | Hospitalist Progress Note ---
Date of Service April 25, 2020 Assessment & Plan (1) Fall: possible 2/2 UTI. Resulted in pelvic fracture. Nonoperable. PT/OT to assess with rehab at SNF as transition back home. (2) Hypertension: at goal on home regimen of lisinopril 20mg daily (3) Closed pelvic ring fracture: supportive care as above. Per Ortho, right partial weight bearing ok. Pending PT and OT assessments. Cont scheduled APAP to help temper any pain that might be present. (4) Acute UTI: GNR pending speciation. Cont ceftriaxone empirically. (5) Closed wedge compression fracture of T11 vertebra: Evaluated by Ortho spine with no recommendation for acute intervention. Cont supportive care efforts and rehab. (6) Closed wedge compression fracture of L5 vertebra: same as above. (7) Dementia: end stage. Appears to be at her baseline. High risk for delirium in the hospital with infection and fractures. Reorient her as necessary. Maintain good day/night cycles. (8) Hypothyroidism: Continue home levothyroxine (9) DVT prophylaxis: heparin SQ Full Code Dispo-to SNF pending PT/OT evaluations. DO [facility] Hospitalist Admission and Anticipated Discharge Date Admission Date: April 23, 2020 Subjective Dementia present, ROS is unobtainable. She appears calm and without discomfort. Review of Systems Review of Systems: Unobtainable due to mental health condition (dementia) Physical Exam Physical Exam: CONSTITUTIONAL: WNWD, vitals as above, generally well- appearing EYES: normal conjunctivae, no scleral icterus ENT: external ear and nose normal, MMM RESPIRATORY: clear to auscultation bilaterally, no crackles, rales or wheezes, normal respiratory effort . Limited exam as patient will not cooperate with exam and take deep breaths. Tends to breath hold. CARDIOVASCULAR: regular rate and rhythm, S1 and 2 heard without murmurs, gallops or rubs, no JVD, no peripheral edema GASTROINTESTINAL: normal bowel sounds, soft, nontender, nondistended MUSCULOSKELETAL: difficult to assess as she has trouble moving around secondary to fracture and has difficulty following instructions. SKIN: warm and dry NEUROLOGIC: CN 2-12 grossly intact, dementia present PSYCHIATRIC: alert and disoriented to place and time although questioned whether or not she was in a hospital but couldn't say why. Oriented to self. Cannot follow instructions well. Results & Data Results & Data ([facility]) Vital Signs (Past 12 Hours) Vital Signs Temp Pulse Resp BP BP Pulse Ox 04/25/20 15:10 37.1 C 83 20 127/73 94 04/25/20 12:16 165/67 H Medications Administered Current Inpatient Medications Acetaminophen (Tylenol) 650 mg PO Q6H [facility] Stop: 05/23/20 14:02 Last Admin: 04/25/20 19:36 Dose: 650 mg Documented by: Amlodipine Besylate (Norvasc) 5 mg PO DAILY [facility] Stop: 05/24/20 08:59 Last Admin: 04/25/20 09:26 Dose: 5 mg Documented by: Aspirin (Ecotrin Ectab) 81 mg PO DAILY@0900 [facility] Stop: 05/24/20 08:59 Last Admin: 04/25/20 09:26 Dose: 81 mg Documented by: Bupropion HCl (Wellbutrin-Xl) 300 mg PO DAILY@0900 [facility] Stop: 05/24/20 08:59 Last Admin: 04/25/20 09:36 Dose: 300 mg Documented by: Calcium Carbonate (Os-Shree 500) 1,250 mg PO BID [facility] Stop: 05/23/20 20:59 Last Admin: 04/25/20 20:02 Dose: 1,250 mg Documented by: Donepezil HCl (Aricept) 10 mg PO DAILY@1700 [facility] Stop: 05/23/20 16:59 Last Admin: 04/25/20 16:34 Dose: 10 mg Documented by: Heparin Sodium (Porcine) (Heparin Sodium (Porcine)) 5,000 units SQ Q8 [facility] Stop: 05/23/20 14:02 Last Admin: 04/25/20 13:47 Dose: 5,000 units Documented by: Ceftriaxone Sodium 1,000 mg/ (Dextrose) 50 mls @ 100 mls/hr IV Q24H [facility]; Protocol Stop: 05/03/20 09:59 Last Infusion: 04/25/20 11:00 Dose: Infused Documented by: Levothyroxine Sodium (Synthroid) 88 mcg PO DAILY@0600 [facility] Stop: 05/24/20 05:59 Last Admin: 04/25/20 06:24 Dose: 88 mcg Documented by: Lisinopril (Zestril) 20 mg PO DAILY@0800 [facility] Stop: 05/24/20 07:59 Last Admin: 04/25/20 09:00 Dose: 20 mg Documented by: Morphine Sulfate (Morphine Sulfate) 2 mg IV Q4H PRN PRN Reason: Pain Stop: 05/07/20 14:02 Multivitamins/Folic Acid/Vitamin C (Flintstones Complete Chew Tab) 1 tab PO DAILY@0900 [facility] Stop: 05/24/20 08:59 Last Admin: 04/25/20 09:36 Dose: 1 tab Documented by: Potassium Chloride (Klor-Con M10) 10 meq PO DAILY@0900 [facility] Stop: 05/24/20 08:59 Last Admin: 04/25/20 09:37 Dose: 10 meq Documented by: Simvastatin (Zocor) 40 mg PO DAILY@1700 [facility] Stop: 05/23/20 16:59 Last Admin: 04/25/20 16:34 Dose: 40 mg Documented by: Venlafaxine HCl (Effexor) 37.5 mg PO DAILY@0900 [facility] Stop: 05/24/20 08:59 Last Admin: 04/25/20 09:27 Dose: 37.5 mg Documented by: Vitamin D (Vitamin D3) 400 units PO DAILY@0900 [facility] Stop: 05/24/20 08:59 Last Admin: 04/25/20 09:27 Dose: 400 units Documented by: (1) Closed pelvic ring fracture Encounter type: initial encounter Qualified Code(s): S32.810A - Multiple fractures of pelvis with stable disruption of pelvic ring, initial encounter for closed fracture (2) Closed wedge compression fracture of T11 vertebra Encounter type: initial encounter Qualified Code(s): S22.080A - Wedge compression fracture of T11-T12 vertebra, initial encounter for closed fracture (3) Closed wedge compression fracture of L5 vertebra Encounter type: initial encounter Qualified Code(s): S32.050A - Wedge compression fracture of fifth lumbar vertebra, initial encounter for closed fracture (4) Dementia Dementia behavioral disturbance: without behavioral disturbance Dementia type: unspecified type Qualified Code(s): F03.90 - Unspecified dementia without behavioral disturbance
[2020-04-26] MEDS: ACETAMINOPHEN 325 MG TAB PO SCH ×2 (02:18→08:13)
[2020-04-26] MEDS: HEPARIN SOD 5,000 UNIT/0.5 ML VIAL SQ SCH (06:23)
[2020-04-26] MEDS: LEVOTHYROXINE SODIUM 88 MCG TABLET PO SCH (06:24)
[2020-04-26] MEDS: AMLODIPINE BESYLATE 5 MG TAB PO SCH (08:10)
[2020-04-26] MEDS: lisinopriL 20 MG TAB PO SCH (08:11)
[2020-04-26] MEDS: FLINTSTONES COMPLETE CHEWABLE TAB PO SCH (08:11)
[2020-04-26] MEDS: ASPIRIN 81 MG ECTAB PO SCH (08:11)
[2020-04-26] MEDS: CALCIUM CARBONATE 1250MG TAB PO SCH (08:12)
[2020-04-26] MEDS: VENLAFAXINE HCL 37.5 MG TAB PO SCH (08:12)
[2020-04-26] MEDS: BuPROPion XL 300 MG TABCR PO SCH (08:12)
[2020-04-26] MEDS: CHOLECALCIFEROL (VITAMIN D) 400 UNITS TABLET PO SCH (08:13)
[2020-04-26] MEDS: POTASSIUM CHLORIDE 10 MEQ TABCR PO SCH (08:13)
[2020-04-26] MEDS: cefTRIAXone SODIUM 1,000 MG in DEXTROSE 5% 50 ML IV SCH (10:26)
--- NOTE | 2020-04-26 11:15 | Discharge Summary ---
Date of Service April 26, 2020 Admission HPI Per Admitting Provider 79 year old with dementia who was brought from [facility] for right hip pain after an unwitnessed fall 2 days ago. She was found on the flow and had difficulty ambulating. Per records from [place], mobile XR fo right hip/pelvis did not show acute fracture. However, patient continued to have pain necessitating ER presentation Patient cannot provide any history due to dementia Difficulty assessing pain as patient is not able to. Limited ROS due to dementia Admission Exam Per Admitting Provider Constitutional: + well hydrated; no acute distress Eyes: PERRL, conjunctivae normal, anicteric sclerae ENMT: external ear and nose normal, oropharynx normal Respiratory: normal respiratory effort, lungs clear to auscultation Cardiovascular: Rate/Rhythm: regular rate and regular rhythm Heart Sounds: normal S1 and normal S2 Extremities: no pedal edema Gastrointestinal (Abdomen): normal bowel sounds, soft, nontender, no hepatosplenomegaly Musculoskeletal: Reported pain with passive ROM of right leg. No tenderness on palpation over both legs Neurologic: Awake, alert, disoriented. Not following commands appropriate Principal Diagnosis Traumatic pelvic fracture E coli UTI Dementia Discharge Exam CONSTITUTIONAL: WNWD, vitals as above, generally well-appearing EYES: normal conjunctivae, no scleral icterus ENT: external ear and nose normal, MMM RESPIRATORY: clear to auscultation bilaterally, no crackles, rales or wheezes, normal respiratory effort. Limited exam as patient will not cooperate with exam and take deep breaths. CARDIOVASCULAR: regular rate and rhythm, S1 and 2 heard without murmurs, gallops or rubs, no JVD, no peripheral edema GASTROINTESTINAL: normal bowel sounds, soft, nontender, nondistended MUSCULOSKELETAL: difficult to assess as she has trouble moving around secondary to fracture and has difficulty following instructions. SKIN: warm and dry NEUROLOGIC: CN 2-12 grossly intact, dementia present Discharge Data Allergies Allergy/AdvReac Type Severity Reaction Status Date / Time buspirone [From BuSpar] Allergy Unknown Unknown Verified 04/23/20 09:27 cefuroxime [From Ceftin] Allergy Unknown Unknown Verified 04/23/20 09:27 codeine Allergy Unknown Unknown Verified 04/23/20 09:27 diclofenac [From Voltaren] Allergy Unknown Unknown Verified 04/23/20 09:27 metronidazole [From Flagyl] Allergy Unknown Unknown Verified 04/23/20 09:27 Penicillins Allergy Unknown Unknown Verified 04/23/20 09:27 Consultations 04/23/20 11:04 ED Decision to Admit Stat 04/23/20 14:03 Consult Case Management - Discharge Planning Routine Consult Orthopedic Surgery Routine Consult Orthopedic Surgery Routine Ordered Studies 04/23/20 09:30 CT cervical spine wo con Stat CT head/brain wo con Stat CT hip RT wo con Stat CT lumbar spine wo con Stat CT pelvis wo con Stat CT thoracic spine wo con Stat Hospital Course (1) Fall: (2) Closed pelvic ring fracture: (3) Acute UTI: (4) Closed wedge compression fracture of T11 vertebra: (5) Dementia: 79-year-old female with history of dementia presented status post fall and subsequent pelvic fracture. Evidence of an E. coli UTI was found and treated with antibiotics. Imaging work-up revealed evidence of acute minimally displaced right pubic ring fractures with mild ready deformity of the superior endplate of L5 and complete compression deformity with associated vertebroplasty 3 of L1 in the context of generalized osteo-john/osteoporosis. The patient was admitted to the hospitalist service and orthopedics was consulted and diagnosed her with a right ischiopubic ramus fracture that was treated conservatively. Of note there was a subtle cortical step-off noted at the level of the right femoral head at the neck at the head and neck junction. This imaging was reviewed by the orthopedics team and was felt to be an osteophyte rather than fracture. However if her pain worsens repeat x-rays or MRI of the right hip may be warranted. This increased pain was not appreciated during her hospital stay. Additional orthopedic spine consultation was placed with no recommendation for surgical and intervention of her T11 wedge compression fracture. At time of discharge she was mentating at baseline and tolerating p.o. She was hemodynamically stable and afebrile and was sent to rehabilitation as a transition back to her [facility]. On day of discharge the recommendations and follow-up plan was discussed with her daughter by phone. All questions were answered. Total Time Total Time Spent Total Time Spent (In Minutes): 60 Total Time Includes: Examination of the Patient, Discharge Planning, Medication Reconciliation and Communication With Other Providers Discharge Plan Discharge Items Patient Disposition: Transfer Halfway Fac Reason For Visit: FALL,COMPRESSION FX, PELVIC FX Discharge Diagnosis: Traumatic pelvic fracture E coli UTI Dementia Condition on Discharge: Good Activity: Resume your previous activity Non-emergency contact: Primary Care Provider Call non-emergency contact if: you have any medication questions, your symptoms worsen, your pain is not controlled, your pain is worsening, your pain is unusual for you, your pain is concerning for you and you have a fever Follow-up/Referrals: Meggan Loyola [Primary Care Provider] - Diet: Regular Addtl Attending Provider Instructions: Please take all medications as instructed on discharge list below. You are being given an antibiotic to take. Please complete the entire course. It is recommended that you follow-up with your primary care physician within one week of discharge from the hospital. With the issue of recurring urinary tract infections over the past year, this may be a good time to discuss if prophylactic strategies would be beneficial. You are currently recommended to exert only partial weight bearing as tolerated on your right leg. This will likely change with improvement in your upcoming rehab program. Please followup with [facility] with any questions or concerns as needed. It was a pleasure taking care of you! Please call if you have any questions or problems. You can reach a [facility] hospitalist on duty at [facility] 24 hours a day by calling [phone]. Take care of yourself. Shanna Delgado, DO [facility] Hospitalist Pending Studies at Discharge: No Stand-Alone Forms: My [facility] Skilled Items Patient informed of condition?: Yes DNR: No Discharge Level of Care: Skilled Communicable Disease: No Discharge Prognosis: Stable Lines: None Urinary Catheter: No Medications and DC Order Prescriptions: New cefdinir 300 mg capsule 300 mg PO BID Qty: 14 RF: 0 Continued lisinopril 20 mg tablet 20 mg PO DAILY@0800 RF: 0 levothyroxine 88 mcg tablet 88 mcg PO DAILY@0600 RF: 0 amlodipine 5 mg tablet 5 mg PO DAILY RF: 0 acetaminophen 500 mg Tablet 1,000 mg PO Q4H PRN (Reason: Pain) RF: 0 loratadine 10 mg Tablet 10 mg PO DAILY PRN (Reason: Allergy Symptoms) RF: 0 aspirin 81 mg Tablet,Delayed Release (Dr/Ec) 81 mg PO DAILY@0900 RF: 0 bupropion HCl 300 mg Tablet Extended Release 24 Hr 300 mg PO DAILY@0900 RF: 0 donepezil 10 mg Tablet 10 mg PO DAILY@1700 RF: 0 potassium chloride 8 mEq Tablet Extended Release 8 meq PO DAILY@0900 RF: 0 calcium carbonate [Calcium 600] 600 mg calcium (1,500 mg) Tablet 600 mg PO BID RF: 0 Child Complete Multivitamin 18 mg iron Tablet,Chewable 18 mg PO DAILY@0900 RF: 0 simvastatin 40 mg Tablet 40 mg PO DAILY@1700 RF: 0 venlafaxine 37.5 mg Tablet 37.5 mg PO DAILY@0900 RF: 0 cholecalciferol (vitamin D3) [Vitamin D3] 400 unit Tablet 400 unit PO DAILY@0900 RF: 0 acetaminophen 500 mg Tablet 1,000 mg PO BID RF: 0 promethazine 12.5 mg Tablet 12.5 mg PO Q6H PRN (Reason: nausea/vomiting) RF: 0 calcium carbonate [Tums] 300 mg (750 mg) Tablet,Chewable 1,500 mg PO Q2H PRN (Reason: Heartburn) RF: 0 ciprofloxacin HCl 500 mg tablet 500 mg PO UD Qty: 10 RF: 0 Discharge Orders: Discharge Order (Routine); Ordered 04/26/20 Ordered By: Shanna Delgado Admission Data Admit Date/Time: 04/23/20 12:09 Attending Provider: Shanna Delgado Admit Provider: Amber Smith I. Primary Care Provider: Meggan Loyola Other Providers: Ady Galvez ; Joshua Diehl ; Courtney Ortez ; Lance Mancia [place] Other Interventions: Discharge Summary Assessment (RN) Last Done: 04/26/20 11:38 DC Date/Time DO NOT enter until pt leaves facility: 04/26/20 12:41
== END 2020-04-26 12:41 | DRG 536 ==
LOC: ED 09:03 → SUATTDRO 12:09 → 3N 12:09

== ENCOUNTER 2020-09-16 13:16 | Inpatient (IN) ==
[2020-09-16] MEDS ORDERED: SODIUM CHLORIDE 0.9% 500 ML IV SCH (13:30)
--- NOTE | 2020-09-16 13:31 | Emergency Department Note ---
Impression & Plan AMS (altered mental status), Acute dehydration, Acute hypernatremia, Elevated troponin I level, Fever, Hypoxia ED Provider Note Provider: Tyrese Hugo MD DATE OF SERVICE:09/16/2020 CHIEF COMPLAINT: Altered mental status, hypoxia HISTORY OF PRESENT ILLNESS: Patient is a 80-year-old female history of UTI, hypertension, and dementia presenting from her her assisted living facility via ambulance today due to a week of decline with now altered mental status elevated heart rate and this morning requiring oxygen. Fever reported since yesterday. Patient still will answer questions and only withdraws to painful stimuli. Called the facility stated the past week she has been more tired and fatigued. Thinks had a urine sample and basic blood work to the lab this morning but now requiring oxygen. Decreased oral intake reported. Not able to eat or drink today. They state a fever yesterday but she is unable to take any medications today or Tylenol today. Covid test is pending from sendout today. Reports of Covid in her facility. No falls or trauma reported. REVIEW OF SYSTEMS: Limited secondary to mental status of the patient. PAST MEDICAL HISTORY: As noted above MEDICATIONS: Reviewed medication listing from facility the patient is not been able to take any of her medicines today. SOCIAL HISTORY: Currently residing at [facility], additional limited secondary the patient's mental status PHYSICAL EXAM: GENERAL: On the stretcher no acute respiratory distress staring forward with mask on not responsive to verbal stimuli. Head: normocephalic and atraumatic EYES: No injection, discharge or icterus. NECK: Trachea midline. LUNGS: Airway patent. No retractions. HEART: Regular tachycardic rate and rhythm. No chest wall tenderness ABDOMEN: Soft and non-tender, without guarding or rebound. SKIN: Acyanotic, warm, dry, without rashes EXTREMITIES: Without swelling, tenderness or deformity NEUROLOGICAL: Withdraws to pain in all 4 extremities. Not following commands and no speech present. EK bpm sinus tachycardia. No PVC. No acute ST segment elevation or depression noted with some lateral as well as 1 and aVL T wave flattening/inversion. Normal QTC. CONTINUOUS CARDIAC MONITORING: was ordered and showed a heart rate of 111 bpm in sinus tachycardia Patient's laboratory studies and imaging reviewed. Differential includes Infection, dehydration, metabolic abnormality, hypo/hyperglycemia, electrolyte disturbance, anemia, hypoxia, cardiac sources, intracerebral event, toxicologic, neurologic, as well as other pathologies. IMPRESSION/MEDICAL DECISION MAKING: Patient sitting upright not in any distress mildly tachypneic but not responding to questions or following commands. Question possible infectious source. Febrile given Tylenol here. Question possible Covid maintained in isolation. Rapid testing was negative here but clinical picture is somewhat suspicious. Does have a leukocytosis today. Does appear dehydrated with an elevated creatinine and an elevated sodium. This is likely contributing to her altered mental status. Given IV fluid hydration. Urinalysis somewhat contaminated but questionable for infection. Given the leukocytosis fever and this covered broadly initially with cefepime. Chest x-ray with ill-defined bibasilar atelectasis versus pneumonitis CT scan of the chest without contrast was completed as well as a CT of the head to exclude intracranial abnormality although she is not having focal deficits. CT of the head without acute intracranial bleed. Initially considered a possible CTA to exclude PE but given her renal function will hold off at this time. Noncontrast CT shows multifocal lower lobe predominant groundglass opacities concerning for viral pneumonia without evidence of pulmonary edema. Again while the rapid Covid test was negative here of high suspicion and maintained on precautions while in the emergency department. Patient requires admission. Discussed with daughter via phone who states the patient will be full code at this time. Will discuss with the hospitalist for admission and discussed possible need for repeat Covid test. DIAGNOSIS: Altered mental status, fever, hypoxia, hyponatremia, elevate troponin DISPOSITION: Hospitalist will evaluate, daughter updated. Critical Care I have personally spent 31 minutes of critical care time in the direct management of this patient. This includes bedside care, interpretation of diagnostic studies, and testing, discussion with consultants, patient, and family members, and other required patient management activities. These 31 minutes is in excess of all separately billable procedures. Past Med/Surg History Medical History (Updated 09/16/20 @ 15:02 by Tyrese Hugo M.D.) Acute UTI Arthritis Depression Falls Hypercholesterolemia Hypertension Hypothyroidism Memory loss Metabolic encephalopathy Osteopenia Weight loss Surgical History History of left hip replacement Surgical history unknown Family History Other Family history non-contributory Social History (Reviewed 04/23/20 @ 09:59 by Geo Wong Smoking Status: Never smoker Hx Alcohol Use: No Hx Substance Use: No Preferred Language: Pashto Communication Ability: Impaired Gas Tester Required: No Beliefs That Will Affect Care: None marital status: / Current Living Situation: Half-Way Current Living Situation Comment: adriane dueñas current occupational status: retired other: POA/daughter is Felisa Rae ([phone]) of [employer] Feels Safe at Home: Yes Assistive Devices: None Allergies Allergies Allergy/AdvReac Type Severity Reaction Status Date / Time buspirone [From BuSpar] Allergy Unknown Unknown Verified 09/16/20 16:29 cefuroxime [From Ceftin] Allergy Unknown Unknown Verified 09/16/20 16:29 codeine Allergy Unknown Unknown Verified 09/16/20 16:28 diclofenac [From Voltaren] Allergy Unknown Unknown Verified 09/16/20 16:29 metronidazole [From Flagyl] Allergy Unknown Unknown Verified 09/16/20 16:28 Penicillins Allergy Unknown Unknown Verified 09/16/20 16:28 Home Meds Home Medications Medication Instructions Recorded Confirmed Child Complete Multivitamin 18 mg PO DAILY@89906/14/19 09/16/20 aspirin 81 mg PO DAILY@89906/14/19 09/16/20 bupropion HCl 300 mg PO DAILY@89906/14/19 09/16/20 calcium carbonate [Calcium 600] 600 mg PO BID 06/14/19 09/16/20 donepezil 10 mg PO HS 06/14/19 09/16/20 potassium chloride 8 meq PO DAILY@89906/14/19 09/16/20 promethazine 12.5 mg PO Q6H PRN 06/14/19 09/16/20 simvastatin 40 mg PO DAILY@1700 06/14/19 09/16/20 venlafaxine 37.5 mg PO DAILY@89906/14/19 09/16/20 levothyroxine 88 mcg PO DAILY@59903/02/20 09/16/20 lisinopril 20 mg PO DAILY@79903/02/20 09/16/20 acetaminophen 1,000 mg PO BID 04/23/20 09/16/20 amlodipine 5 mg PO DAILY 04/23/20 09/16/20 loratadine 10 mg PO DAILY PRN 04/23/20 09/16/20 acetaminophen [Tylenol Extra 1,000 mg PO Q4H PRN MDD 3G 09/16/20 09/16/20 Strength] cholecalciferol (vitamin D3) 25 mcg PO DAILY 09/16/20 09/16/20 furosemide 20 mg PO DAILY PRN 09/16/20 09/16/20 menthol-zinc oxide [Calmoseptine] 1 applic TOPICAL Q8H PRN 09/16/20 09/16/20 nystatin 1 applic TOPICAL BID PRN 09/16/20 09/16/20 nystatin 1 applic TOPICAL BID PRN 09/16/20 09/16/20 Previous Rx's Medication Instructions Recorded ciprofloxacin HCl 500 mg PO UD #10 tab 06/16/19 Results & Data (ED) Vital Signs Vital Signs - 24 hr 09/16/20 13:26 09/16/20 13:28 09/16/20 13:36 Temperature 38.9 C H Temperature Source Oral Pulse Rate 120 H Pulse Rate from SpO2 Sensor Respiratory Rate 30 H Respiratory Effort / Characteristics Spontaneous Spontaneous Blood Pressure 177/93 H Blood Pressure Mean 121 Pulse Oximetry 100 100 Oxygen Delivery Method Nasal Cannula Nasal Cannula Oxygen Flow Rate 6 6 Sepsis Recent Fever Within 48 Hours Yes Sepsis New/Unexplained Change in Mental Status Yes Sepsis Action Taken by Nursing Physician Notified 09/16/20 14:00 09/16/20 14:30 09/16/20 15:00 Temperature 37.9 C H Temperature Source Oral Pulse Rate 107 H 114 H Pulse Rate from SpO2 Sensor 107 H 114 H Respiratory Rate 27 H 23 Respiratory Effort / Characteristics Blood Pressure 136/71 123/58 L Blood Pressure Mean 87 82 Pulse Oximetry 100 99 Oxygen Delivery Method Nasal Cannula Nasal Cannula Oxygen Flow Rate 6 6 Sepsis Recent Fever Within 48 Hours Sepsis New/Unexplained Change in Mental Status Sepsis Action Taken by Nursing Laboratory Data Result diagrams: 09/16/20 13:40 09/16/20 13:40 Lab Results 09/16/20 09/16/20 09/16/20 Range/Units 13:20 13:20 13:40 WBC 11.16 H (4.8-10.8) K/uL RBC 5.52 H (4.2-5.4) M/uL Hgb 16.4 H (12.0-16.0) g/dL Hct 51.7 H (37-47) % MCV 93.7 (80-100) fL MCH 29.7 (25-34) pg MCHC 31.7 L (32-36) g/dL RDW Std Deviation 52.5 H (36.4-46.3) fL RDW Coeff of Amber 15.3 H (11.5-14.5) % Plt Count 270 (130-400) K/uL MPV 11.0 H (7.4-10.4) fL Immature Gran % (Auto) 0.4 % Neut % (Auto) 84.1 % Lymph % (Auto) 8.9 % Miner % (Auto) 6.5 % Eos % (Auto) 0.0 % Baso % (Auto) 0.1 % Neut # (Auto) 9.39 H (1.4-6.5) K/uL Lymph # (Auto) 0.99 L (1.2-3.4) K/uL Miner # (Auto) 0.73 H (0.11-0.59) K/uL Eos # (Auto) 0.00 (0-0.5) K/uL Baso # (Auto) 0.01 (0-0.2) K/uL Immature Gran # (Auto) 0.04 H (0.00-0.02) K/uL PT (9.0-12.0) Seconds INR (0.9-1.1) D-Dimer (0-500) ug/L FEU Sodium (136-145) mmol/L Potassium (3.5-5.1) mmol/L Chloride (98-107) mmol/L Carbon Dioxide (21-32) mmol/L Anion Gap (3-11) BUN (7-18) mg/dl Creatinine (0.6-1.2) mg/dl Est Cr Clr Drug Dosing Est GFR ( Amer) Est GFR (Non-Af Amer) BUN/Creatinine Ratio (10-20) Glucose (70-99) mg/dl Lactate (0.4-2.0) mmol/L Calcium (8.5-10.1) mg/dl Total Bilirubin (0.2-1) mg/dl AST (15-37) U/L ALT (12-78) U/L Alkaline Phosphatase (45-117) U/L Troponin I (0-0.045) ng/ml Total Protein (6.4-8.2) gm/dl Albumin (3.4-5.0) gm/dl Globulin (2.5-4.0) gm/dl Albumin/Globulin Ratio (0.9-2) Procalcitonin (0-0.5) ng/ml Urine Color Urine Appearance (Clear) Urine pH (4.5-7.5) Ur Specific Rillito (1.000-1.030) Urine Protein (Negative) Urine Glucose (UA) (Negative) Urine Ketones (Negative) Urine Blood (Negative) Urine Nitrite (Negative) Urine Bilirubin (Negative) Urine Urobilinogen (Negative) Ur Leukocyte Esterase (Negative) Urine WBC (Auto) (0-5) /hpf Urine RBC (Auto) (0-4) /hpf U Hyaline Cast (Auto) (0-5) /lpf U Epithel Cells (Auto) (0-5) /lpf Urine Bacteria (Auto) (Negative) Ur Renal Epithelial Cell Granular Casts (0) /lpf COVID-19 Eval Order Covid19 IDNow [facility] SARS-CoV-2, RNA, NAAT NEGATIVE (NEGATIVE) 09/16/20 09/16/20 09/16/20 Range/Units 13:40 13:40 13:40 WBC (4.8-10.8) K/uL RBC (4.2-5.4) M/uL Hgb (12.0-16.0) g/dL Hct (37-47) % MCV (80-100) fL MCH (25-34) pg MCHC (32-36) g/dL RDW Std Deviation (36.4-46.3) fL RDW Coeff of Amber (11.5-14.5) % Plt Count (130-400) K/uL MPV (7.4-10.4) fL Immature Gran % (Auto) % Neut % (Auto) % Lymph % (Auto) % Miner % (Auto) % Eos % (Auto) % Baso % (Auto) % Neut # (Auto) (1.4-6.5) K/uL Lymph # (Auto) (1.2-3.4) K/uL Miner # (Auto) (0.11-0.59) K/uL Eos # (Auto) (0-0.5) K/uL Baso # (Auto) (0-0.2) K/uL Immature Gran # (Auto) (0.00-0.02) K/uL PT 10.9 (9.0-12.0) Seconds INR 1.0 (0.9-1.1) D-Dimer 1890 H* (0-500) ug/L FEU Sodium 153 H (136-145) mmol/L Potassium 3.7 (3.5-5.1) mmol/L Chloride 119 H (98-107) mmol/L Carbon Dioxide 25 (21-32) mmol/L Anion Gap 8.0 (3-11) BUN 63 H (7-18) mg/dl Creatinine 1.66 H (0.6-1.2) mg/dl Est Cr Clr Drug Dosing Not Reportable Est GFR ( Amer) 33.2 Est GFR (Non-Af Amer) 28.6 BUN/Creatinine Ratio 38.0 H (10-20) Glucose 143 H (70-99) mg/dl Lactate 1.4 (0.4-2.0) mmol/L Calcium 9.7 (8.5-10.1) mg/dl Total Bilirubin 0.4 (0.2-1) mg/dl AST 51 H (15-37) U/L ALT 42 (12-78) U/L Alkaline Phosphatase 68 (45-117) U/L Troponin I 0.067 H* (0-0.045) ng/ml Total Protein 8.3 H (6.4-8.2) gm/dl Albumin 3.1 L (3.4-5.0) gm/dl Globulin 5.2 H (2.5-4.0) gm/dl Albumin/Globulin Ratio 0.6 L (0.9-2) Procalcitonin (0-0.5) ng/ml Urine Color Urine Appearance (Clear) Urine pH (4.5-7.5) Ur Specific Rillito (1.000-1.030) Urine Protein (Negative) Urine Glucose (UA) (Negative) Urine Ketones (Negative) Urine Blood (Negative) Urine Nitrite (Negative) Urine Bilirubin (Negative) Urine Urobilinogen (Negative) Ur Leukocyte Esterase (Negative) Urine WBC (Auto) (0-5) /hpf Urine RBC (Auto) (0-4) /hpf U Hyaline Cast (Auto) (0-5) /lpf U Epithel Cells (Auto) (0-5) /lpf Urine Bacteria (Auto) (Negative) Ur Renal Epithelial Cell Granular Casts (0) /lpf COVID-19 Eval Order SARS-CoV-2, RNA, NAAT (NEGATIVE) 09/16/20 09/16/20 Range/Units 13:40 13:45 WBC (4.8-10.8) K/uL RBC (4.2-5.4) M/uL Hgb (12.0-16.0) g/dL Hct (37-47) % MCV (80-100) fL MCH (25-34) pg MCHC (32-36) g/dL RDW Std Deviation (36.4-46.3) fL RDW Coeff of Amber (11.5-14.5) % Plt Count (130-400) K/uL MPV (7.4-10.4) fL Immature Gran % (Auto) % Neut % (Auto) % Lymph % (Auto) % Miner % (Auto) % Eos % (Auto) % Baso % (Auto) % Neut # (Auto) (1.4-6.5) K/uL Lymph # (Auto) (1.2-3.4) K/uL Miner # (Auto) (0.11-0.59) K/uL Eos # (Auto) (0-0.5) K/uL Baso # (Auto) (0-0.2) K/uL Immature Gran # (Auto) (0.00-0.02) K/uL PT (9.0-12.0) Seconds INR (0.9-1.1) D-Dimer (0-500) ug/L FEU Sodium (136-145) mmol/L Potassium (3.5-5.1) mmol/L Chloride (98-107) mmol/L Carbon Dioxide (21-32) mmol/L Anion Gap (3-11) BUN (7-18) mg/dl Creatinine (0.6-1.2) mg/dl Est Cr Clr Drug Dosing Est GFR ( Amer) Est GFR (Non-Af Amer) BUN/Creatinine Ratio (10-20) Glucose (70-99) mg/dl Lactate (0.4-2.0) mmol/L Calcium (8.5-10.1) mg/dl Total Bilirubin (0.2-1) mg/dl AST (15-37) U/L ALT (12-78) U/L Alkaline Phosphatase (45-117) U/L Troponin I (0-0.045) ng/ml Total Protein (6.4-8.2) gm/dl Albumin (3.4-5.0) gm/dl Globulin (2.5-4.0) gm/dl Albumin/Globulin Ratio (0.9-2) Procalcitonin 0.30 (0-0.5) ng/ml Urine Color Yellow Urine Appearance Cloudy A (Clear) Urine pH 5.0 (4.5-7.5) Ur Specific Rillito 1.024 (1.000-1.030) Urine Protein 2+ H (Negative) Urine Glucose (UA) Negative (Negative) Urine Ketones Trace H (Negative) Urine Blood 2+ H (Negative) Urine Nitrite Negative (Negative) Urine Bilirubin Negative (Negative) Urine Urobilinogen Negative (Negative) Ur Leukocyte Esterase 1+ H (Negative) Urine WBC (Auto) 10-30 H (0-5) /hpf Urine RBC (Auto) 5-10 H (0-4) /hpf U Hyaline Cast (Auto) 10-30 H (0-5) /lpf U Epithel Cells (Auto) >30 H (0-5) /lpf Urine Bacteria (Auto) Negative (Negative) Ur Renal Epithelial Cell Not Reportable Granular Casts 1-5 H (0) /lpf COVID-19 Eval Order SARS-CoV-2, RNA, NAAT (NEGATIVE) Administered Medications Discontinued Medications Sodium Chloride (Nss) 500 mls @ 999 mls/hr IV .Q31M CARLITO Stop: 09/16/20 14:00 Last Infusion: 09/16/20 14:09 Dose: 0 mls/hr Documented by: [id number] Admin: 09/16/20 13:37 Dose: 999 mls/hr Documented by: [id number] Acetaminophen (Ofirmev) 1,000 mg in 100 mls @ 400 mls/hr IV NOW STA Stop: 09/16/20 13:57 Last Infusion: 09/16/20 14:08 Dose: 0 mls/hr Documented by: [id number] Admin: 09/16/20 13:49 Dose: 400 mls/hr Documented by: [id number] Sodium Chloride (Nss 1000ml) 500 mls @ 999 mls/hr IV .Q31M ONE Stop: 09/16/20 14:23 Last Infusion: 09/16/20 14:59 Dose: 0 mls/hr Documented by: [id number] Admin: 09/16/20 14:22 Dose: 999 mls/hr Documented by: [id number] Cefepime HCl 2,000 mg/ Syringe 20 mls @ 5 mls/min IV NOW STA Stop: 09/16/20 14:42 Last Admin: 09/16/20 15:48 Dose: 5 mls/min Documented by: [id number] Discharge Plan Visit Data Chief Complaint: Unresponsive ED Provider: Tyrese Hugo Discharge Problem: AMS (altered mental status), Acute dehydration, Acute hypernatremia, Elevated troponin I level, Fever, Hypoxia Patient Disposition: Admitted As Inpatient Condition: Fair Forms Stand Alone Forms: [facility] Prescriptions Prescriptions: No Action lisinopril 20 mg tablet 20 mg PO DAILY@0800 RF: 0 levothyroxine 88 mcg tablet 88 mcg PO DAILY@0600 RF: 0 amlodipine 5 mg tablet 5 mg PO DAILY RF: 0 acetaminophen 500 mg Tablet 1,000 mg PO BID RF: 0 loratadine 10 mg Tablet 10 mg PO DAILY PRN (Reason: Allergy Symptoms) RF: 0 cholecalciferol (vitamin D3) 25 mcg (1,000 unit) Tablet 25 mcg PO DAILY RF: 0 acetaminophen [Tylenol Extra Strength] 500 mg Tablet 1,000 mg PO Q4H MDD 3G PRN (Reason: Pain) RF: 0 furosemide 20 mg tablet 20 mg PO DAILY PRN (Reason: Edema) RF: 0 Calmoseptine 0.44-20.6 % Ointment 1 applic TOPICAL Q8H PRN (Reason: Skin Irritation) RF: 0 nystatin 100,000 unit/gram Powder 1 applic TOPICAL BID PRN (Reason: .EXCORIATION) RF: 0 nystatin 100,000 unit/gram Cream 1 applic TOPICAL BID PRN (Reason: Skin Irritation) RF: 0 aspirin 81 mg Tablet,Delayed Release (Dr/Ec) 81 mg PO DAILY@0900 RF: 0 bupropion HCl 300 mg Tablet Extended Release 24 Hr 300 mg PO DAILY@0900 RF: 0 donepezil 10 mg Tablet 10 mg PO HS RF: 0 potassium chloride 8 mEq Tablet Extended Release 8 meq PO DAILY@0900 RF: 0 calcium carbonate [Calcium 600] 600 mg calcium (1,500 mg) Tablet 600 mg PO BID RF: 0 Child Complete Multivitamin 18 mg iron Tablet,Chewable 18 mg PO DAILY@0900 RF: 0 simvastatin 40 mg Tablet 40 mg PO DAILY@1700 RF: 0 venlafaxine 37.5 mg Tablet 37.5 mg PO DAILY@0900 RF: 0 promethazine 12.5 mg Tablet 12.5 mg PO Q6H PRN (Reason: nausea/vomiting) RF: 0 ciprofloxacin HCl 500 mg tablet 500 mg PO UD Qty: 10 RF: 0 Referrals Referrals: Meggan Loyola [Primary Care Provider] - Discharge Problem: AMS (altered mental status) Qualifiers: Altered mental status type: somnolence Qualified Code(s): R40.0 - Somnolence Fever Qualifiers: Fever type: unspecified Qualified Code(s): R50.9 - Fever, unspecified
[2020-09-16] MEDS ORDERED: ACETAMINOPHEN 1,000 MG/100 ML VIAL IV STA (13:43)
[2020-09-16] MEDS ORDERED: SODIUM CHLORIDE 0.9% 1000ML 500 ML IV ONE (13:53)
[2020-09-16 13:56] LABS: Basophils # (auto) 0.01 K/uL (0-0.2); Basophils % (auto) 0.1 %; Hematocrit (blood only) 51.7 % (37-47); Hemoglobin 16.4 g/dL (12.0-16.0); Immature Granulocytes # (auto) 0.04 K/uL (0.00-0.02); Immature Granulocytes % (auto) 0.4 %; Lymphocytes # (auto) 0.99 K/uL (1.2-3.4); Lymphocytes % (auto) 8.9 %; Mean Corpuscular Hemoglobin 29.7 pg (25-34); Mean Corpuscular Hgb Conc 31.7 g/dL (32-36); Mean Corpuscular Volume 93.7 fL (80-100); Monocytes # (auto) 0.73 K/uL (0.11-0.59); Monocytes % (auto) 6.5 %; Neutrophils # (auto) 9.39 K/uL (1.4-6.5); Neutrophils % (auto) 84.1 %; Platelet Count 270 K/uL (130-400); RDW Coefficient of Variation 15.3 % (11.5-14.5); RDW Standard Deviation 52.5 fL (36.4-46.3); Red Blood Count 5.52 M/uL (4.2-5.4); White Blood Count 11.16 K/uL (4.8-10.8)
[2020-09-16 14:05] LABS: Prothrombin Time 10.9 Seconds (9.0-12.0)
[2020-09-16 14:09] LABS: Appearance Urine Cloudy (Clear); Bacteria Urine Automated Negative (Negative); Bilirubin Urine Negative (Negative); Blood Urine 2+ (Negative); Color Urine Yellow; Epithelial Cell Urine Auto >30 /lpf (0-5); Glucose Urine UA Negative (Negative); Ketones Urine Trace (Negative); Leukocyte Esterase Urine 1+ (Negative); Nitrite Urine Negative (Negative); Protein Urine 2+ (Negative); Specific Gravity Urine 1.024 (1.000-1.030); Urobilinogen Urine Negative (Negative)
[2020-09-16 14:17] LABS: Alanine Aminotransferase 42 U/L (12-78); Albumin Level 3.1 gm/dl (3.4-5.0); Aspartate Aminotransferase 51 U/L (15-37); Blood Urea Nitrogen 63 mg/dl (7-18); Calcium 9.7 mg/dl (8.5-10.1); Carbon Dioxide 25 mmol/L (21-32); Chloride 119 mmol/L (98-107); Est GFR (African American) 33.2; Est GFR (Non-African American) 28.6; Glucose 143 mg/dl (70-99); Potassium 3.7 mmol/L (3.5-5.1); Sodium 153 mmol/L (136-145)
--- NOTE | 2020-09-16 14:21 | XRay Report ---
XR chest 1V portable HISTORY: 80 years-old Female sob acute shortness of breath COMPARISON: CT thoracic spine 04/23/2020 TECHNIQUE: Portable AP view of the chest FINDINGS: Patient is rotated towards the left. Cardiomegaly without overt pulmonary edema. Mild chronic interst itial coarsening. Mild right hemidiaphragmatic elevation with subsegmental bibasilar densities. No pn eumothorax or large pleural effusion. Degenerative changes of the shoulders and spine. IMPRESSION: 1. Cardiomegaly without overt pulmonary edema. 2. Ill-defined bibasilar opacities may reflect atelectasis versus a nonspecific pneumonitis. ACT 112: Negative or not required by law. The above report was generated using voice recognition software. It may contain grammatical, syntax o r spelling errors. Electronically signed by: Miguel Hurd M.D. 09/16/2020 2:20 PM
[2020-09-16 14:23] LABS: D Dimer 1890 ug/L FEU (0-500)
[2020-09-16 14:26] LABS: Albumin Globulin Ratio 0.6 (0.9-2); Alkaline Phosphatase 68 U/L (45-117); Bilirubin,Total 0.4 mg/dl (0.2-1); Globulin 5.2 gm/dl (2.5-4.0); Total Protein 8.3 gm/dl (6.4-8.2)
[2020-09-16] MEDS ORDERED: CEFEPIME 2,000 MG in SYRINGE 0 ML IV STA (14:39)
[2020-09-16 15:01] LABS: Troponin I 0.067 ng/ml (0-0.045)
--- NOTE | 2020-09-16 16:01 | Electrocardiogram Report ---
Test Reason : Blood Pressure : / mmHG Vent. 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
--- NOTE | 2020-09-16 16:45 | CT Scan Report ---
CT OF THE HEAD WITHOUT CONTRAST CLINICAL HISTORY: Altered mental status. COMPARISON STUDY: Head CT April 23, 2020. CT DOSE: 869.93 mGy.cm TECHNIQUE: Helical axial images of the head were obtained without IV contrast. Automated exposure con trol was utilized for the study. A dose lowering technique was utilized adhering to the principles o f ALARA. FINDINGS: No acute intracranial hemorrhage, midline shift or mass effect is present. The ventricular system is stable. Atrophy is again noted. Extensive small vessel disease appears similar to prior exa m. The basal cisterns are patent. No extra-axial collections are present. There are no findings to ball ggest acute dural sinus thrombosis or acute territorial infarct. No significant calvarial abnormaliti es are present. Visualized portions of the sinuses and mastoid air cells are clear. IMPRESSION: No acute intracranial findings. No significant change since previous exam. ACT 112: Negative or not required by law. Electronically signed by: Jarek Chino M.D. 09/16/2020 4:43 PM
--- NOTE | 2020-09-16 16:51 | CT Scan Report ---
CT OF THE CHEST WITHOUT IV CONTRAST CLINICAL HISTORY: hypoxia COMPARISON STUDY: Chest radiograph April 23, 2020 and September 16, 2020. TECHNIQUE: Axial images of the chest were obtained without IV contrast. Images were reviewed in the axial, sagittal, and coronal planes. IV contrast was not administered for this examination. Automat ed exposure control was utilized for the study. A dose lowering technique was utilized adhering to t he principles of ALARA. FINDINGS: No enlarged axillary, mediastinal or hilar lymph nodes are present. Note is made of cardio megaly. There is no pericardial effusion. No pneumothorax or pleural effusion is noted. Moderate bila teral lower lobe groundglass opacities are noted. Additional mild bilateral upper lobe airspace opaci ties are noted. The central airways are patent. Lungs as well. This has given respiratory motion. No acute fracture is identified within the bony thorax. Old bilateral rib fractures. Water attenuation l esions within the upper kidneys are suboptimally assessed on this unenhanced exam but probably reflec t cysts. There is oral contrast within portions of the colon. IMPRESSION: 1. Multifocal lower lobe predominant groundglass opacities. The findings favor viral pneumonia. 2. Cardiomegaly without evidence for pulmonary edema. ACT 112: Negative or not required by law. Electronically signed by: Jarek Chino M.D. 09/16/2020 4:50 PM
--- NOTE | 2020-09-16 17:43 | History & Physical Report ---
Date of Service September 16, 2020 Assessment & Plan (1) SIRS (systemic inflammatory response syndrome): (2) Acute respiratory failure with hypoxia: (3) Viral pneumonia: This is an 80-year-old female who has significant past medical history of senile dementia, HTN, HLD, hypothyroidism, frequent falls who presents to ED secondary to fever and hypoxia x2 days. Currently she resides at [facility]. In ED patient was hypoxic requiring 6 L of O2. She also was febrile and ta chycardic. She did meet SIRS criteria. Lab work notable for wbc 11.16k, h/h 1.4/51.7, plt 270, dimer 1890, Na 153, bun 63, 1.66, trop 0.067, UA +leuks, wbcs possible UTI. CXR showing bibasilar opacit ies and chest CT concerning for multifocal lower lobe ground glass opacities. Concerning for viral PNA. In ED she received 1 L of IVF and IV Cefepime. Per CMS guidelines patient meets SIRS criteria secondary to fever, tachycardia and tachypnea. Blood and urine cultures were obtained. She received 1 L IVF. Hemodynamics were stable. Lactic acid unremarkable. Received broad-spectrum IV antibiotics with cefepime Source: possible viral PNA, UTI - sepsis not entirely ruled out Admit to PCU repeat COVID screen given signs/sx concerning for covid and O2 requirement significant Repeat covid pending continue IV antibiotics IV cefepime and doxy MRSA Screen O2 as needed Addendum: Ddimer elevated COVID 19 negative x2 Ordered VQ scam and LE dopplers to rule out DVT/PE (4) Acute hypernatremia: (5) Acute worsening of stage 3 chronic kidney disease: baseline cr 1.0 bun/cr 63/1.66, likely pre renal free water deficit 2.4 L, received 1 L in ED monitor BMP q4 hrs, start D5W 80cc/hr low threshold for nephro consult (6) Elevated troponin I level: initial trop 0.067, t wave inv I, otherwise sinus tach, w/o complaint of chest pain likely demand ischemia, will trend for now (7) Hypothyroidism: on levothyroxine as outpt if continues to remain NPO, switch to IV formulation (pharmacy notified) (8) Hypertension: hold amlodipine and lisinopril resume as able, BP 123/58 (9) Hyperlipidemia: hold statin for now until able to resume PO meds given mental status (10) Dementia: on aricept as outpt on hold (11) DVT prophylaxis: SQ Heparin Disposition: admit to PCU Follow up: PCP Dr. Maldonado at [facility] upon discharge Pt was collaborated with Dr. Marroquin. Code: Full - discussed with daughter Pt's daughter updated about pt's clinical status. I, Felix Marroquin MD, seen and examined by me, care coordinated with Pamella Alvarez PA-C, pls refer to her note above for further detail, note above adjusted by me. History of Present Illness Chief Complaint: Fever and hypoxia x 2 days. Primary Care Provider: [facility] This is an 80-year-old female who has significant past medical history of senile dementia, HTN, HLD, hypothyroidism, frequent falls who presents to ED secondary to fever and hypoxia x2 days. Currently she resides at [facility]. Hx obtained from facility as pt unable to provide hx given mental status. Symptoms started approximately 2 to 3 days ago when she had a significant decline in oral intake. On Wednesday she developed fever which has been persistent for 2 days. Initially she had a drop in her oxygen levels requiring O2 supplementation. She is normally not on oxygen. There is no exposures at facility. At baseline patient does have dementia but is usually pleasant and able to converse even though not meaningful. She does ambulate short distances at baseline. In ED patient was hypoxic requiring 6 L of O2. She also was febrile and tachycardic. She did meet SIRS criteria. Lab work notable for wbc 11.16k, h/h 1.4/51.7, plt 270, dimer 1890, Na 153, bun 63, 1.66, trop 0.067, UA +leuks, wbcs possible UTI. CXR showing bibasilar opacities and chest CT concerning for multifocal lower lobe ground glass opacities. Concerning for viral PNA. In ED she received 1 L of IVF and IV Cefepime. Allergies Allergy/AdvReac Type Severity Reaction Status Date / Time buspirone [From BuSpar] Allergy Unknown Unknown Verified 09/16/20 16:29 cefuroxime [From Ceftin] Allergy Unknown Unknown Verified 09/16/20 16:29 codeine Allergy Unknown Unknown Verified 09/16/20 16:28 diclofenac [From Voltaren] Allergy Unknown Unknown Verified 09/16/20 16:29 metronidazole [From Flagyl] Allergy Unknown Unknown Verified 09/16/20 16:28 Penicillins Allergy Unknown Unknown Verified 09/16/20 16:28 Home Medications Medication Instructions Recorded Confirmed Type Child Complete Multivitamin 18 mg PO DAILY@0906/14/19 09/16/20 History aspirin 81 mg PO DAILY@89906/14/19 09/16/20 History bupropion HCl 300 mg PO DAILY@89906/14/19 09/16/20 History calcium carbonate [Calcium 600] 600 mg PO BID 06/14/19 09/16/20 History donepezil 10 mg PO HS 06/14/19 09/16/20 History potassium chloride 8 meq PO DAILY@89906/14/19 09/16/20 History promethazine 12.5 mg PO Q6H PRN 06/14/19 09/16/20 History simvastatin 40 mg PO DAILY@0 06/14/19 09/16/20 History venlafaxine 37.5 mg PO DAILY@89906/14/19 09/16/20 History ciprofloxacin HCl 500 mg PO UD #10 tab 06/16/19 09/16/20 Rx levothyroxine 88 mcg PO DAILY@59903/02/20 09/16/20 History lisinopril 20 mg PO DAILY@0803/02/20 09/16/20 History acetaminophen 1,000 mg PO BID 04/23/20 09/16/20 History amlodipine 5 mg PO DAILY 04/23/20 09/16/20 History loratadine 10 mg PO DAILY PRN 04/23/20 09/16/20 History acetaminophen [Tylenol Extra 1,000 mg PO Q4H PRN MDD 3G 09/16/20 09/16/20 History Strength] cholecalciferol (vitamin D3) 25 mcg PO DAILY 09/16/20 09/16/20 History furosemide 20 mg PO DAILY PRN 09/16/20 09/16/20 History menthol-zinc oxide [Calmoseptine] 1 applic TOPICAL Q8H PRN 09/16/20 09/16/20 History nystatin 1 applic TOPICAL BID PRN 12/07/20 12/07/20 History nystatin 1 applic TOPICAL BID PRN 09/16/20 09/16/20 History Past Med/Surg History Medical History (Updated 09/16/20 @ 18:23 by Pamella Alvarez PA-C) Acute UTI Arthritis Depression Falls Hypercholesterolemia Hypertension Hypothyroidism Memory loss Metabolic encephalopathy Osteopenia Weight loss Surgical History (Updated 09/16/20 @ 18:13 by Pamella Alvarez PA-C) History of left hip replacement Family History Other Family history non-contributory Social History Smoking Status: Never smoker Hx Alcohol Use: No Hx Substance Use: No Preferred Language: Chilean Communication Ability: Impaired Bargain Table Clerk Required: No Beliefs That Will Affect Care: None marital status: / Current Living Situation: Longterm Current Living Situation Comment: [facility] current occupational status: retired other: POA/daughter is Felisa Rae ([phone]) of [employer] Feels Safe at Home: Yes Assistive Devices: None Review of Systems Review of Systems: Unobtainable due to cognitive status Physical Exam Constitutional: WD/WN, vitals as above + ill appearing; no acute distress Eyes: PERRL, conjunctivae normal, anicteric sclerae ENMT: external ear and nose normal, oropharynx normal Neck: trachea midline, no thyromegaly Respiratory: normal respiratory effort, lungs clear to auscultation no respiratory distress and does not use accessory muscles Auscultation: + rhonchi (very mild bibasilar); no crackles, no rales and no wheezes currently on 6L of suppl. o2 Cardiovascular: Rate/Rhythm: + tachycardic Chest (Breasts): Chest: normal inspection of chest Gastrointestinal (Abdomen): Inspection/Auscultation: abdomen normal to inspection and normal bowel sounds; abdomen not distended Percussion/Palpation: abdomen nontender, abdomen not rigid and + abdomen not soft Musculoskeletal: no cyanosis or clubbing, extremities motor strength 5/5 Head/Neck/Chest: normocephalic and head atraumatic Skin: no rashes, warm and dry Neurologic: moves all extremities and awake pt is opening her eyes to voice and moves extremities but does not speak, appears generally weak but no focal weakness noted Psychiatric: awake but does not speak, (as above), appears comfortable, in NAD Genitourinary: no CVA tenderness Lymphatic: no lymphedema Results & Data Results & Data ([facility]) Vital Signs (Past 12 Hours) Vital Signs Temp Pulse Resp BP Pulse Ox 09/16/20 15:00 37.9 C H 09/16/20 14:30 114 H 23 123/58 L 99 09/16/20 14:00 107 H 27 H 136/71 100 09/16/20 13:28 38.9 C H 120 H 30 H 177/93 H 100 09/16/20 13:26 100 Laboratory Results Short CBC 09/16/20 09/16/20 09/16/20 Range/Units 13:20 13:40 13:40 WBC 11.16 H (4.8-10.8) K/uL Hgb 16.4 H (12.0-16.0) g/dL Hct 51.7 H (37-47) % Plt Count 270 (130-400) K/uL Sodium 153 H (136-145) mmol/L SARS-CoV-2, RNA, NAAT NEGATIVE (NEGATIVE) BMP 09/16/20 13:40 Sodium 153 H Potassium 3.7 Chloride 119 H Carbon Dioxide 25 BUN 63 H Creatinine 1.66 H Glucose 143 H Calcium 9.7 Cardiac Enzymes 09/16/20 Range/Units 13:40 Troponin I 0.067 H* (0-0.045) ng/ml Liver Function 09/16/20 Range/Units 13:40 Total Bilirubin 0.4 (0.2-1) mg/dl AST 51 H (15-37) U/L ALT 42 (12-78) U/L Alkaline Phosphatase 68 (45-117) U/L Albumin 3.1 L (3.4-5.0) gm/dl Urine 09/16/20 Range/Units 13:45 Urine Color Yellow Urine Appearance Cloudy A (Clear) Urine pH 5.0 (4.5-7.5) Ur Specific [place] 1.024 (1.000-1.030) Urine Protein 2+ H (Negative) Urine Glucose (UA) Negative (Negative) Diagnostic Findings Chest CT: IMPRESSION: 1. Multifocal lower lobe predominant groundglass opacities. The findings favor viral pneumonia. 2. Cardiomegaly without evidence for pulmonary edema. Head CT: IMPRESSION: No acute intracranial findings. No significant change since previous exam. CXR: IMPRESSION: 1. Cardiomegaly without overt pulmonary edema. 2. Ill-defined bibasilar opacities may reflect atelectasis versus a nonspecific pneumonitis. Medications Administered Discontinued Medications Sodium Chloride (Nss) 500 mls @ 999 mls/hr IV .Q31M CARL[facility]O Stop: 09/16/20 14:00 Last Infusion: 09/16/20 14:09 Dose: 0 mls/hr Documented by: [id number] Admin: 09/16/20 13:37 Dose: 999 mls/hr Documented by: [id number] Acetaminophen (Ofirmev) 1,000 mg in 100 mls @ 400 mls/hr IV NOW STA Stop: 09/16/20 13:57 Last Infusion: 09/16/20 14:08 Dose: 0 mls/hr Documented by: [id number] Admin: 09/16/20 13:49 Dose: 400 mls/hr Documented by: [id number] Sodium Chloride (Nss 1000ml) 500 mls @ 999 mls/hr IV .Q31M ONE Stop: 09/16/20 14:23 Last Infusion: 09/16/20 14:59 Dose: 0 mls/hr Documented by: [id number] Admin: 09/16/20 14:22 Dose: 999 mls/hr Documented by: [id number] Cefepime HCl 2,000 mg/ Syringe 20 mls @ 5 mls/min IV NOW STA Stop: 09/16/20 14:42 Last Admin: 09/16/20 15:48 Dose: 5 mls/min Documented by: [id number] Code Status & VTE Plan Code Status Full Code per ER. VTE Prophylaxis Plan VTE Prophylaxis will be ordered: Yes (1) Dementia Dementia behavioral disturbance: without behavioral disturbance Dementia type: unspecified type Qualified Code(s): F03.90 - Unspecified dementia without behavioral disturbance
[2020-09-16 18:35] LABS: BUN Creatinine Ratio 39.1 (10-20); Blood Urea Nitrogen 59 mg/dl (7-18); Calcium 8.7 mg/dl (8.5-10.1); Carbon Dioxide 24 mmol/L (21-32); Chloride 123 mmol/L (98-107); Est GFR (African American) 37.2; Est GFR (Non-African American) 32.1; Glucose 140 mg/dl (70-99); Potassium 3.5 mmol/L (3.5-5.1); Sodium 152 mmol/L (136-145)
[2020-09-16 18:53] LABS: Influenza A virus by PCR Negative (Neg); Influenza B virus by PCR Negative (Neg); RSV by PCR Negative (Neg); SARS CoV2 RNA(COVID-19) InHosp NEGATIVE (Negative)
[2020-09-16] MEDS ORDERED: THIAMINE HCL 100 MG in SYRINGE 9 ML IV STA (19:03)
--- NOTE | 2020-09-16 20:48 | Ultrasound Report ---
BILATERAL LOWER EXTREMITY VENOUS DOPPLER HISTORY: Unresponsive. rule out DVT, elevated ddimer COMPARISON STUDY: None. FINDINGS: There is normal compressibility, flow, and augmentation within the bilateral right lower ex tremity deep venous system. Nonocclusive thrombus within the left common femoral vein and proximal gr eater saphenous vein. Nonocclusive echogenic stranding within the proximal to mid superficial femoral vein which is noncompressible. This favors chronic thrombus. The left posterior tibial and peroneal veins are not visualized. The intervertebral veins and popliteal vein are patent. IMPRESSION: 1. No DVT within the right lower extremity. 2. Nonocclusive thrombus within the left common femoral vein which favors an acute DVT. There is also nonocclusive thrombus within the proximal greater saphenous vein. 3. There is nonocclusive echogenic stranding within the proximal to mid left superficial femoral vein which favors chronic thrombus. ACT 112: Negative or not required by law. Electronically signed by: Derek Boles M.D. 09/16/2020 8:47 PM
[2020-09-16 23:30] LABS: BUN Creatinine Ratio 40.9 (10-20); Blood Urea Nitrogen 54 mg/dl (7-18); Calcium 9.4 mg/dl (8.5-10.1); Carbon Dioxide 23 mmol/L (21-32); Chloride 125 mmol/L (98-107); Est GFR (African American) 43.3; Est GFR (Non-African American) 37.4; Glucose 137 mg/dl (70-99); Potassium 3.7 mmol/L (3.5-5.1); Sodium 154 mmol/L (136-145)
[2020-09-17] MEDS ORDERED: FOLIC ACID 1 MG in SYRINGE 9.8 ML IV STA (00:11)
[2020-09-17] MEDS ORDERED: DEXTROSE 5% 1,000 ML IV SCH (00:15)
[2020-09-17] MEDS ORDERED: CEFEPIME CONSULT ACTIVE PRN (00:42)
[2020-09-17] MEDS ORDERED: ONDANSETRON INJ 2 MG/ML 2 ML VIAL IV PRN (00:42)
[2020-09-17] MEDS ORDERED: ACETAMINOPHEN 1,000 MG/100 ML VIAL IV PRN (00:42)
[2020-09-17] MEDS: DEXTROSE 5% 1,000 ML IV SCH ×2 (00:48→12:09)
[2020-09-17] MEDS: PATIENT'S HEIGHT AND/OR WEIGHT NEEDED SCH ×2 (01:02)
[2020-09-17] MEDS: HEPARIN SOD 5,000 UNIT/0.5 ML VIAL SQ SCH ×2 (01:44→05:04)
[2020-09-17] MEDS: DOXYCYCLINE HYCLATE 100 MG in DEXTROSE 5% 100 ML IV SCH ×2 (01:45→12:09)
[2020-09-17 02:42] LABS: BUN Creatinine Ratio 42.6 (10-20); Calcium 8.9 mg/dl (8.5-10.1); Creatinine Clr Calc Pharmacy 30.8 ml/min; Est GFR (Non-African American) 38.8; Potassium 3.8 mmol/L (3.5-5.1)
[2020-09-17 02:48] LABS: Troponin I 0.072 ng/ml (0-0.045)
[2020-09-17] MEDS ORDERED: OPTIRAY 320 125ml IV ONE (02:51)
[2020-09-17] MEDS ORDERED: ACETAMINOPHEN 1,000 MG/100 ML VIAL IV STA (04:10)
[2020-09-17] MEDS: CEFEPIME 2,000 MG in SYRINGE 0 ML IV SCH ×2 (05:02→15:58)
[2020-09-17] MEDS: cloNIDine HCL 0.1 MG/24 HR TRANSDERM SYS TD SCH (05:03)
[2020-09-17 05:40] LABS: Basophils # (auto) 0.02 K/uL (0-0.2); Basophils % (auto) 0.2 %; Hemoglobin 15.7 g/dL (12.0-16.0); Immature Granulocytes # (auto) 0.04 K/uL (0.00-0.02); Immature Granulocytes % (auto) 0.4 %; Lymphocytes # (auto) 0.92 K/uL (1.2-3.4); Lymphocytes % (auto) 8.4 %; Mean Corpuscular Hemoglobin 29.8 pg (25-34); Mean Corpuscular Hgb Conc 31.4 g/dL (32-36); Mean Corpuscular Volume 95.1 fL (80-100); Mean Platelet Volume 11.2 fL (7.4-10.4); Monocytes # (auto) 0.66 K/uL (0.11-0.59); Neutrophils # (auto) 9.35 K/uL (1.4-6.5); Platelet Count 250 K/uL (130-400); RDW Coefficient of Variation 15.4 % (11.5-14.5); RDW Standard Deviation 53.8 fL (36.4-46.3); Red Blood Count 5.26 M/uL (4.2-5.4); White Blood Count 10.99 K/uL (4.8-10.8)
[2020-09-17 06:07] LABS: Albumin Level 2.7 gm/dl (3.4-5.0); BUN Creatinine Ratio 39.8 (10-20); Calcium 8.8 mg/dl (8.5-10.1); Creatinine Clr Calc Pharmacy 33.1 ml/min; Est GFR (African American) 49.1; Est GFR (Non-African American) 42.4; Magnesium 2.7 mg/dl (1.8-2.4); Potassium 3.7 mmol/L (3.5-5.1)
[2020-09-17 06:10] LABS: Albumin Globulin Ratio 0.6 (0.9-2); Bilirubin,Total 0.3 mg/dl (0.2-1); Globulin 4.8 gm/dl (2.5-4.0); Total Protein 7.5 gm/dl (6.4-8.2)
--- NOTE | 2020-09-17 06:53 | CT Scan Report ---
CT ANGIOGRAPHY OF THE CHEST, PULMONARY EMBOLUS PROTOCOL CLINICAL HISTORY: Fever. Hypoxia. COMPARISON STUDY: Chest radiograph and chest CT performed September 16, 2020. TECHNIQUE: Following IV administration of 95 mL of Optiray-320, helical axial images of the chest wer e obtained utilizing the pulmonary embolus protocol. Maximal intensity projections and sagittal and coronal reformats were viewed on an independent 3D workstation. IV contrast was administered without complication. Automated exposure control was utilized for the study. A dose lowering technique was utilized adhering to the principles of ALARA. CT DOSE: 304.02 mGy.cm FINDINGS: No acute pulmonary embolism is identified. There is a linear filling defect within the lef t lower lobe pulmonary artery on image 122 of 221. This favors a chronic pulmonary embolus. The heart is moderately enlarged. There is no pericardial effusion. No pneumothorax or pleural effusion is not ed. Multifocal lower lobe prominent groundglass opacities are similar to chest CT of September 16, 2020 . Central airways are patent. There is no thoracic lymphadenopathy. No acute fracture or suspicious l esion is identified within the bony thorax. Probable renal cyst within the upper pole the left kidney is partially imaged. IMPRESSION: 1. No acute pulmonary emboli identified. 2. Small linear filling defect within the left lower lobe pulmonary artery suggestive of a chronic pu lmonary embolus. This finding will be called/faxed to the ordering provider at time of dictation. 2. Lower lobe predominant multifocal groundglass opacities which favor an infectious process such as viral pneumonia. ACT 112: Negative or not required by law. Electronically signed by: Jaerk Chino M.D. 09/17/2020 6:52 AM
[2020-09-17] MEDS: CHECK CLONIDINE PATCH PLACEMENT SCH ×2 (08:01→15:59)
[2020-09-17] MEDS: THIAMINE HCL 100 MG in SYRINGE 9 ML IV SCH (08:01)
[2020-09-17 09:18] LABS: BUN Creatinine Ratio 35.9 (10-20); Est GFR (African American) 45.4; Est GFR (Non-African American) 39.2; Potassium 3.6 mmol/L (3.5-5.1)
[2020-09-17] MEDS: LEVOTHYROXINE SODIUM 44 MCG in SYRINGE 0 ML IV SCH (10:19)
[2020-09-17] MEDS ORDERED: Heparin IV Adult Wt-Based Standard WITH Bolus Protocol IV SCH (11:59)
[2020-09-17] MEDS ORDERED: HEPARIN IV BOLUS 5,000 UNITS in SYRINGE 0 ML IV ONE (12:15)
--- NOTE | 2020-09-17 12:30 | Hospitalist Progress Note ---
Date of Service September 17, 2020 Assessment & Plan (1) Acute metabolic encephalopathy: multifactorial etiology includes but not limited to electrolyte abnormality, acute infection with ? sepsis, acute hypoxemia, change in location with ?hospital delirium (high risk in this dementia patient), poor PO intake and generalized weakness/fatigue. (2) Sepsis: 2/2 acute infection, less likely UTI and appears to be from respiratory illness. She could also simply have fever from acute PE/DVT. (3) Acute respiratory failure with hypoxia: Multifactorial etiology in setting of pneumonia and acute PE. Cont oxygen supplementation which appears to be improving/stable. (4) Pulmonary embolus: In the setting of acute DVT, acute infection and recent immobilization 2/2 malaise in [place], now with hypoxia that is acute, the PE seen on imaging is likely something that acutely developed. Either way, she also has an acute DVT and was placed on a heparin drip today. (5) Acute deep vein thrombosis (DVT): Heparin drip as above. (6) Pneumonia: Procalcitonin was low on admission and infiltrate pattern is reflective of a viral etiology. Negative covid, Flu and RSV screenings on admission, but high risk of false negative given current clinical picture. Receiving empiric cefepime/doxycycline for now. Consider de-escalation pending clinical progression, blood cultures and further workup. (7) Dementia: severe, patient resides in a NH. Currently unable to communicate with staff or tolerate PO. Nutrition and speech consulted. (8) Hypernatremia: Cont with free water to reverse this. Stop q4h BMP and repeat in am. (9) Demand ischemia: Likely related to sepsis picture. No escalating velocity in troponin rise overnight when trended. Could consider echo to definitively rule out any acute wall motion abnormality. (10) Acute renal failure: Related to sepsis. Repeat BMP once she is more resuscitated and rehydrated. (11) Hypothyroidism: cont IV replacement while NPO (12) DVT prophylaxis: heparin drip Full Code Dispo-I did discuss the problems above and the plan with her daughter. She asked if there might be and ETP made for her to be with her mother and I told her we would need to see how she progressed clinically and then we could check this with the administration. Shanna Delgado DO Orthopaedic Hospitalist Admission and Anticipated Discharge Date Admission Date: September 16, 2020 Subjective 80 yo F with prolonged malaise at [place] for the last week, recently brought in for a fever and new onset hypoxemia. COVID negative but CT chest reveals a viral pneumonia. She also has an acute DVT in the left leg with a PE and was placed on heparin today. She has been on Cefepime and doxycycline. She was hypernatremic on arrival with her sodium in the 150s, and placed on D5 x 1L overnight with slight improvement in the Na to 151. She has had a resting sinus tachycardia since admission in the 1teens on telemetry review. She is nonverbal and is lying with her eyes open but unable to focus on me or follow any instructions. I cannot see inside her mouth. She is unsafe to feed. She is not giving facial grimace or other nonverbal indications at this point about how she is feeling. I spoke with daughter by phone who asked about her abdomen, stating the [place] staff mentioned at one point her abdomen was distended. We discussed that she doesn't have any distension or guarding on physical exam tonight. Daughter states that, outside of the acute metabolic encephalopathy from the hypernatremia, the patient has become this way in the past when she comes into the hospital. I reviewed the care plan with the daughter and all questions were answered. I was then paged by the nurse around 7pm that her HR was in the 130-140 range. Considerations in this nonverbal dementia patient include but are not limited to physiologic response to acute PE (possible developing pulmonary infarction?) and pneumonia, worsening sepsis with consideration given to an intra-abdominal process (abd not distended but daughter mentioned this was the case earlier in the week per NH staff?) or other source, uncontrolled pain (just gave Tylenol IV) or nausea (gave empiric Zofran), or could be something more simple like constipation or anxiety. She also had a negative covid screening on admission with a negative RSV and flu swab, however, she is high risk of COVID pneumonia with CT infiltrates in this pattern, also. She remains on airborne isolation precautions appropriately becuase of her higher risk of false negative COVID test on admission. Review of Systems Review of Systems: Unobtainable due to mental health condition (patient with dementia, nonverbal) Physical Exam Physical Exam: CONSTITUTIONAL: WNWD, vitals as above, NAD EYES: PERRL (patient wouldn't open her eyes much and was resisting me from opening her lids, limited exam) normal conjunctivae, no scleral icterus ENT: external ear and nose normal, patient was not opening her mouth for me so could not examine inside mouth. RESPIRATORY: clear to auscultation bilaterally-very diminished breath sounds as patient not participating in exam. No crackles, rales or wheezes, normal respiratory effort CARDIOVASCULAR: tachy rate and rhythm, S1 and 2 heard without murmurs, gallops or rubs, no JVD, no peripheral edema GASTROINTESTINAL: soft, nontender, nondistended, no guarding MUSCULOSKELETAL: unable to perform physical exam as patient is altered SKIN: warm and dry NEUROLOGIC: No facial palsy, limited exam, patient has eyes opened but is not following instructions and is not moving any limbs. She is somewhat resisting passive limb movement, cannot elicit DTR knee reflexes becasue of body positioning and this resistance. Results & Data Results & Data ([facility]) Vital Signs (Past 12 Hours) Vital Signs Temp Pulse Pulse Resp BP Pulse Ox 09/17/20 10:46 37.4 C 108 H 18 133/79 98 09/17/20 08:00 119 H 09/17/20 07:35 36.7 C 118 H 16 152/82 H 98 09/17/20 04:59 36.7 C 112 H 18 143/98 H 97 09/17/20 02:51 37.8 C H 113 H 18 165/94 H 97 09/17/20 01:34 114 H 09/17/20 01:06 36.2 C L 112 H 20 95 09/17/20 00:29 36.2 C L 122 H 16 145/81 H 96 Laboratory Results Short CBC 09/16/20 09/17/20 Range/Units 13:40 05:13 WBC 11.16 H 10.99 H (4.8-10.8) K/uL Hgb 16.4 H 15.7 (12.0-16.0) g/dL Hct 51.7 H 50.0 H (37-47) % Plt Count 270 250 (130-400) K/uL BMP 09/16/20 09/16/20 09/16/20 13:40 18:04 22:40 Sodium 153 H 152 H 154 H Potassium 3.7 3.5 3.7 Chloride 119 H 123 H 125 H Carbon Dioxide 25 24 23 BUN 63 H 59 H 54 H Creatinine 1.66 H 1.51 H 1.33 H Glucose 143 H 140 H 137 H Calcium 9.7 8.7 9.4 09/17/20 09/17/20 09/17/20 01:16 05:13 08:31 Sodium 154 H 152 H 152 H Potassium 3.8 3.7 3.6 Chloride 123 H 121 H 122 H Carbon Dioxide 26 26 24 BUN 55 H 48 H 46 H Creatinine 1.29 H 1.20 1.28 H Glucose 144 H 178 H 208 H Calcium 8.9 8.8 9.0 Cardiac Enzymes 09/16/20 09/16/20 09/17/20 Range/Units 13:40 18:04 01:16 Troponin I 0.067 H* 0.072 H* 0.072 H* (0-0.045) ng/ml Liver Function 09/16/20 09/17/20 Range/Units 13:40 05:13 Total Bilirubin 0.4 0.3 (0.2-1) mg/dl AST 51 H 35 (15-37) U/L ALT 42 31 (12-78) U/L Alkaline Phosphatase 68 65 (45-117) U/L Albumin 3.1 L 2.7 L (3.4-5.0) gm/dl Urine 09/16/20 Range/Units 13:45 Urine Color Yellow Urine Appearance Cloudy A (Clear) Urine pH 5.0 (4.5-7.5) Ur Specific [place] 1.024 (1.000-1.030) Urine Protein 2+ H (Negative) Urine Glucose (UA) Negative (Negative) Medications Administered Current Inpatient Medications Clonidine HCl (Clonidine Hcl 0.1 Mg/24 Hr Transderm Sys) 1 patch TD Tu@0900 [facility] Stop: 10/17/20 04:14 Last Admin: 09/17/20 05:03 Dose: 1 patch Documented by: Heparin Sodium/Dextrose (Heparin Iv Standard With Bolus) 1 ea IV Q15M [facility]; Protocol Stop: 10/17/20 11:58 Thiamine HCl 100 mg/ Syringe 10 mls @ 2 mls/min IV QAM [facility] Stop: 10/17/20 08:59 Last Admin: 09/17/20 08:01 Dose: 2 mls/min Documented by: Acetaminophen (Ofirmev) 1,000 mg in 100 mls @ 400 mls/hr IV Q8H PRN PRN Reason: fever/pain Stop: 09/20/20 00:41 Dextrose (D5w) 1,000 mls @ 100 mls/hr IV .Q10H [facility] Stop: 10/17/20 00:41 Last Admin: 09/17/20 12:09 Dose: 100 mls/hr Documented by: Doxycycline Hyclate 100 mg/ (Dextrose) 110 mls @ 50 mls/hr IV Q12H [facility] Stop: 09/24/20 00:59 Last Admin: 09/17/20 12:09 Dose: 50 mls/hr Documented by: Cefepime HCl 2,000 mg/ Syringe 20 mls @ 5 mls/min IV Q12H [facility]; Protocol Stop: 09/24/20 03:59 Last Admin: 09/17/20 05:02 Dose: 5 mls/min Documented by: Levothyroxine Sodium 44 mcg/ (Syringe) 2.2 mls @ 2 mls/min IV DAILY@0900 [facility] Stop: 10/17/20 08:59 Last Admin: 09/17/20 10:19 Dose: 2 mls/min Documented by: Heparin Sodium/Dextrose (Heparin Sodium/Dextrose) 25,000 units in 500 mls @ 21 mls/hr IV .[id number] [facility]; Protocol Stop: 10/17/20 11:59 Miscellaneous (Remove Clonidine Patch) 1 ea N/A Tu@0859 [facility] Stop: 10/24/20 08:58 Miscellaneous (Check Clonidine Patch Placement) 1 ea N/A QS [facility] Stop: 10/17/20 07:59 Last Admin: 09/17/20 08:01 Dose: 1 ea Documented by: Miscellaneous Information (Cefepime Consult Active) 1 ea N/A UD PRN PRN Reason: Consult Stop: 10/17/20 00:41 Ondansetron HCl (Ondansetron Inj 2 Mg/Ml 2 Ml Vial) 4 mg IV Q6H PRN PRN Reason: Nausea Stop: 10/17/20 00:41 (1) Dementia Dementia behavioral disturbance: without behavioral disturbance Dementia type: unspecified type Qualified Code(s): F03.90 - Unspecified dementia without behavioral disturbance
[2020-09-17] MEDS: HEPARIN SODIUM/DEXTROSE 25,000 UNITS/500 ML BAG IV SCH (13:03)
[2020-09-17 13:12] LABS: INR 1.1 (0.9-1.1); Partial Thromboplastin Time 28.5 Seconds (21.0-31.0); Prothrombin Time 11.2 Seconds (9.0-12.0)
[2020-09-17 13:25] LABS: BUN Creatinine Ratio 29.9 (10-20); Calcium 9.5 mg/dl (8.5-10.1); Creatinine Clr Calc Pharmacy 28.6 ml/min; Est GFR (African American) 41.1; Est GFR (Non-African American) 35.5; Potassium 3.5 mmol/L (3.5-5.1)
[2020-09-17] MEDS ORDERED: CEFEPIME 2,000 MG in SYRINGE 0 ML IV SCH (14:00)
[2020-09-17] MEDS ORDERED: ONDANSETRON INJ 2 MG/ML 2 ML VIAL IV STA (19:13)
[2020-09-17] MEDS ORDERED: SODIUM CHLORIDE 0.9% 1000ML 1,000 ML IV ONE (19:25)
[2020-09-17 19:51] LABS: Basophils # (auto) 0.01 K/uL (0-0.2); Basophils % (auto) 0.1 %; Hematocrit (blood only) 44.9 % (37-47); Hemoglobin 14.1 g/dL (12.0-16.0); Immature Granulocytes % (auto) 0.8 %; Lymphocytes # (auto) 0.83 K/uL (1.2-3.4); Lymphocytes % (auto) 6.7 %; Mean Corpuscular Hemoglobin 29.1 pg (25-34); Mean Corpuscular Volume 92.8 fL (80-100); Mean Platelet Volume 11.1 fL (7.4-10.4); Monocytes # (auto) 0.52 K/uL (0.11-0.59); Monocytes % (auto) 4.2 %; Neutrophils # (auto) 10.92 K/uL (1.4-6.5); Neutrophils % (auto) 88.2 %; Platelet Count 262 K/uL (130-400); RDW Standard Deviation 51.2 fL (36.4-46.3); Red Blood Count 4.84 M/uL (4.2-5.4); White Blood Count 12.38 K/uL (4.8-10.8)
[2020-09-17 20:11] LABS: Mean Corpuscular Hgb Conc 31.4 g/dL (32-36)
--- NOTE | 2020-09-17 20:11 | XRay Report ---
XR chest 1V portable CLINICAL HISTORY: tachycardia worsening COMPARISON STUDY: 09/16/2020 FINDINGS: The heart is borderline enlarged. There are bilateral pulmonary airspace opacities with pro gressive opacities on the left. Asymmetric multifocal pneumonitis is suspected.[There are no pleural effusions. IMPRESSION: Worsening left lung airspace opacities consistent with a progressive multifocal pneumonit is ACT 112: Negative or not required by law. Electronically signed by: Mata Pinto M.D. 09/17/2020 8:10 PM
[2020-09-17 20:22] LABS: Albumin Globulin Ratio 0.5 (0.9-2); Albumin Level 2.4 gm/dl (3.4-5.0); BUN Creatinine Ratio 28.4 (10-20); Bilirubin,Total 0.3 mg/dl (0.2-1); Calcium 8.7 mg/dl (8.5-10.1); Creatinine Clr Calc Pharmacy 33.1 ml/min; Est GFR (African American) 49.1; Est GFR (Non-African American) 42.4; Globulin 4.8 gm/dl (2.5-4.0); Potassium 3.5 mmol/L (3.5-5.1); Total Protein 7.2 gm/dl (6.4-8.2)
[2020-09-17] MEDS ORDERED: DEXTROSE 50% 50 ML SYRINGE IV PRN (20:33)
[2020-09-17] MEDS ORDERED: GLUCAGON FOR INJ 1 MG VIAL SQ PRN (20:33)
[2020-09-17] MEDS ORDERED: GLUCOSE 40% GEL 15 GM TUBE PO PRN (20:33)
[2020-09-17] MEDS ORDERED: GLUCOSE 10 TABS/TUBE PO PRN (20:33)
[2020-09-17] MEDS ORDERED: CARBOHYDRATES FOR HYPOGLYCEMIA PO PRN (20:33)
[2020-09-17 20:52] LABS: Partial Thromboplastin Ratio > 5.0
[2020-09-17 20:54] LABS: Partial Thromboplastin Time > 139.0 Seconds (21.0-31.0)
[2020-09-17] MEDS: INSULIN ASPART 100 UNITS/ML 3 ML PEN SC SCH (21:08)
[2020-09-17 21:47] LABS: Partial Thromboplastin Ratio > 5.0
[2020-09-17 21:50] LABS: Partial Thromboplastin Time > 139.0 Seconds (21.0-31.0)
[2020-09-17 22:20] LABS: Adenovirus PCR Not Detected (NotDetected); Bordetella parapertussis PCR Not Detected (NotDetected); Bordetella pertussis PCR Not Detected (NotDetected); Chlamydia pneumoniae PCR Not Detected (NotDetected); Coronavirus 229E PCR Not Detected (NotDetected); Coronavirus HKU1 PCR Not Detected (NotDetected); Coronavirus NL63 PCR Not Detected (NotDetected); Coronavirus OC43PCR Not Detected (NotDetected); Human Metapneumovirus PCR Not Detected (NotDetected); Influenza A PCR Not Detected (NotDetected); Influenza B PCR Not Detected (NotDetected); Mycoplasma pneumoniae PCR Not Detected (NotDetected); Parainfluenza Virus 1 PCR Not Detected (NotDetected); Parainfluenza Virus 2 PCR Not Detected (NotDetected); Parainfluenza Virus 3 PCR Not Detected (NotDetected); Parainfluenza Virus 4 PCR Not Detected (NotDetected); Respiratory Syncytial VirusPCR Not Detected (NotDetected); Rhinovirus/Enterovirus PCR Not Detected (NotDetected)
[2020-09-17 22:40] LABS: Coronavirus CoV-2 (COVID19)PCR DETECTED (NotDetected)
--- NOTE | 2020-09-17 22:46 | Communication Note ---
Date of Service: September 17, 2020 Notified by RN of positive COVID-19 swab result. AP Severe COVID-19 pneumonia Decadron course Remdesivir first dose now if family agreeable. Defer decision for subsequent dosing to AM provider. Patient daughter (Ms. Felisa Torres) updated of developments over the phone. Agreeable to attendance side effects of Remdesivir and convalescent plasma transfusion if felt to be warranted by AM provider.
[2020-09-17] MEDS ORDERED: REMDESIVIR 200 MG in SODIUM CHLORIDE 0.9% 210 ML IV STA (22:53)
[2020-09-17 23:55] LABS: Partial Thromboplastin Ratio 4.2
[2020-09-17 23:57] LABS: Partial Thromboplastin Time > 139.0 Seconds (21.0-31.0)
[2020-09-18] MEDS: dexAMETHasone 6 MG in SYRINGE 0 ML IV SCH (00:10)
[2020-09-18] MEDS: CHECK CLONIDINE PATCH PLACEMENT SCH ×3 (00:11→15:55)
[2020-09-18 02:34] LABS: Partial Thromboplastin Time 82.8 Seconds (21.0-31.0)
[2020-09-18] MEDS: SODIUM CHLORIDE 0.9% 10ML FLUSH IV SCH (02:41)
[2020-09-18] MEDS: DEXTROSE 5% 1,000 ML IV SCH ×3 (02:41→17:59)
[2020-09-18] MEDS: DOXYCYCLINE HYCLATE 100 MG in DEXTROSE 5% 100 ML IV SCH ×2 (02:41→13:11)
[2020-09-18] MEDS: CEFEPIME 2,000 MG in SYRINGE 0 ML IV SCH ×2 (02:42→15:55)
[2020-09-18 07:14] LABS: Hematocrit (blood only) 40.8 % (37-47); Hemoglobin 12.9 g/dL (12.0-16.0); Mean Corpuscular Hemoglobin 29.7 pg (25-34); Mean Corpuscular Hgb Conc 31.6 g/dL (32-36); Mean Corpuscular Volume 93.8 fL (80-100); Mean Platelet Volume 11.6 fL (7.4-10.4); Platelet Count 253 K/uL (130-400); RDW Coefficient of Variation 15.2 % (11.5-14.5); RDW Standard Deviation 52.6 fL (36.4-46.3); Red Blood Count 4.35 M/uL (4.2-5.4); White Blood Count 9.45 K/uL (4.8-10.8)
[2020-09-18 07:36] LABS: Partial Thromboplastin Ratio 4.7
[2020-09-18 07:39] LABS: Estimated Average Glucose 160 mg/dl; Hemoglobin A1C 7.2 % (4.5-5.6)
[2020-09-18 07:44] LABS: Partial Thromboplastin Time 132.5 Seconds (21.0-31.0)
[2020-09-18 07:55] LABS: BUN Creatinine Ratio 29.5 (10-20); Calcium 8.2 mg/dl (8.5-10.1); Creatinine Clr Calc Pharmacy 35.1 ml/min; Est GFR (African American) 52.8; Est GFR (Non-African American) 45.5; Magnesium 2.4 mg/dl (1.8-2.4); Phosphorus 2.2 mg/dl (2.5-4.9); Potassium 3.2 mmol/L (3.5-5.1)
[2020-09-18] MEDS: THIAMINE HCL 100 MG in SYRINGE 9 ML IV SCH (07:55)
[2020-09-18 08:05] LABS: Beta-Hydroxybutyrate 1.38 mg/dl (0.2-2.81)
[2020-09-18] MEDS: INSULIN ASPART 100 UNITS/ML 3 ML PEN SC SCH ×4 (08:16→22:46)
[2020-09-18] MEDS ORDERED: POTASSIUM CHLORIDE CRTAB 20 MEQ TABCR PO STA (08:50)
[2020-09-18] MEDS: LEVOTHYROXINE SODIUM 44 MCG in SYRINGE 0 ML IV SCH (10:13)
[2020-09-18] MEDS: POTASSIUM CHLORIDE / WTR 10 MEQ/100 ML PLCT IV SCH ×2 (10:13→11:41)
[2020-09-18] MEDS: HEPARIN SODIUM/DEXTROSE 25,000 UNITS/500 ML BAG IV SCH (11:57)
--- NOTE | 2020-09-18 13:47 | Electrocardiogram Report ---
Test Reason : Blood Pressure : / mmHG Vent. 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
--- NOTE | 2020-09-18 14:44 | Hospitalist Progress Note ---
Date of Service September 18, 2020 Assessment & Plan (1) Acute metabolic encephalopathy: Multifactorial etiology includes but not limited to electrolyte abnormality, acute infection,sepsis, acute hypoxemia, hospital delirium (high risk in this dementia patient), Ppoor PO intake and generalized weakness/fatigue. Hemodynamically stable Denies any acute confusion (2) Sepsis: 2/2 acute infection-likely viral pneumonia, less likely UTI and appears to be from respiratory illness. She could also simply have fever from acute PE/DVT. (3) Acute respiratory failure with hypoxia: Multifactorial etiology in setting of pneumonia and acute PE. Cont oxygen supplementation which appears to be improving/stable. (4) Pulmonary embolus: In the setting of acute DVT, acute infection and recent immobilization 2/2 malaise in NH, now with hypoxia that is acute, the PE seen on imaging is likely something that acutely developed. Has been on intravenous heparin. CTA Showed: 1. No acute pulmonary emboli identified. 2. Small linear filling defect within the left lower lobe pulmonary artery suggestive of a chronic pulmonary embolus. This finding will be called/faxed to the ordering provider at time of dictation. 2. Lower lobe predominant multifocal groundglass opacities which favor an infectious process such as viral pneumonia. (5) Acute deep vein thrombosis (DVT): Heparin drip as above. (6) Pneumonia: Procalcitonin was low on admission and infiltrate pattern is reflective of a viral etiology. Negative covid, Flu and RSV screenings on admission, but high risk of false negative given current clinical picture. Receiving empiric cefepime/doxycycline for now. Procalcitonin level is not high, blood and urine cultures remain negative Will de-escalate antibiotics tomorrow Repeat Covid 19 test came back positive Likely has severe Covid pneumonia Has been getting intravenous dexamethasone received 1 dose of remdesivir Remains asymptomatic and does not require any oxygen Will not continue any more remdesivir The role of convalescent plasma remains uncertain and will not give any since he remains asymptomatic We will discuss with the daughter (7) Dementia: Severe, patient resides in a NH. Currently unable to communicate with staff or tolerate PO. Nutrition and speech consulted. Requires help with ADL S for most of the time (8) Hypernatremia: Cont with free water to reverse this. Stop q4h BMP and repeat in am. (9) Demand ischemia: Likely related to sepsis picture. No escalating velocity in troponin rise overnight when trended. Could consider echo to definitively rule out any acute wall motion abnormality. (10) Acute renal failure: Related to sepsis. Repeat BMP once she is more resuscitated and rehydrated. (11) Hypothyroidism: cont IV replacement while NPO (12) DVT prophylaxis: heparin drip Full Code Dispo-I did discuss the problems above and the plan with her daughter. She asked if there might be and ETP made for her to be with her mother and I told her we would need to see how she progressed clinically and then we could check this with the administration. Admission and Anticipated Discharge Date Admission Date: September 16, 2020 Subjective 09/18/2020 The patient was seen and examined in telemetry unit She has profound dementia and this morning seems to be noncommunicative Otherwise remains stable with stable vitals Review of Systems Review of Systems: Unobtainable due to mental health condition Respiratory: no cough and no dyspnea Physical Exam Physical Exam: Lying in bed comfortably Constitutional: well developed; no acute distress and not ill appearing Eyes: PERRL, conjunctivae normal, anicteric sclerae ENMT: external ear and nose normal, oropharynx normal Neck: trachea midline, no thyromegaly Respiratory: no respiratory distress Auscultation: + diminished lung sounds and + crackles (Minimal crackles at the bases) Cardiovascular: Rate/Rhythm: regular rate and regular rhythm Heart Sounds: no murmur Extremities: + edema (Trace edema bilaterally) Gastrointestinal (Abdomen): Inspection/Auscultation: normal bowel sounds; abdomen not distended Percussion/Palpation: abdomen soft; abdomen nontender Musculoskeletal: No acute alcohol any joint Neurologic: Alert and awake. Has dementia and has not been communicating well Psychiatric: Affect: euthymic affect Cognition: + recent memory not intact and + remote memory not intact Insight: + poor insight Judgement: + poor judgement Lymphatic: no cervical or axillary lymphadenopathy Results & Data Results & Data ([facility]) Vital Signs (Past 12 Hours) Vital Signs Temp Pulse Pulse Resp BP Pulse Ox 09/18/20 11:48 36.5 C 99 H 16 153/84 H 96 09/18/20 08:01 36.8 C 104 H 18 126/78 97 09/18/20 08:00 80 09/18/20 02:53 36.5 C 79 21 130/73 95 Laboratory Results Short CBC 09/17/20 09/18/20 Range/Units 19:35 06:36 WBC 12.38 H 9.45 (4.8-10.8) K/uL Hgb 14.1 12.9 (12.0-16.0) g/dL Hct 44.9 40.8 (37-47) % Plt Count 262 253 (130-400) K/uL BMP 09/17/20 09/18/20 19:35 06:35 Sodium 148 H 146 H Potassium 3.5 3.2 L Chloride 119 H 119 H Carbon Dioxide 24 20 L BUN 34 H 33 H Creatinine 1.20 1.13 Glucose 256 H 301 H* Calcium 8.7 8.2 L Liver Function 09/17/20 Range/Units 19:35 Total Bilirubin 0.3 (0.2-1) mg/dl AST 35 (15-37) U/L ALT 27 (12-78) U/L Alkaline Phosphatase 59 (45-117) U/L Albumin 2.4 L (3.4-5.0) gm/dl Medications Administered Current Inpatient Medications Clonidine HCl (Clonidine Hcl 0.1 Mg/24 Hr Transderm Sys) 1 patch TD Tu@0900 [facility] Stop: 10/17/20 04:14 Last Admin: 09/17/20 05:03 Dose: 1 patch Documented by: Dextrose (Dextrose 50% 50 Ml Syringe) 25 - 50 ml IV UD PRN; Protocol PRN Reason: Hypoglycemia Protocol Stop: 10/17/20 20:32 Glucagon (Glucagon For Inj 1 Mg Vial) 1 mg SQ UD PRN; Protocol PRN Reason: Hypoglycemia Protocol Stop: 10/17/20 20:32 Glucose (Glucose 10 Tabs/Tube) 4 - 8 tabs PO UD PRN; Protocol PRN Reason: Hypoglycemia Protocol Stop: 10/17/20 20:32 Glucose (Glucose 40% Gel 15 Gm Tube) 15 - 30 gm PO UD PRN; Protocol PRN Reason: Hypoglycemia Protocol Stop: 10/17/20 20:32 Thiamine HCl 100 mg/ Syringe 10 mls @ 2 mls/min IV QAM [facility] Stop: 10/17/20 08:59 Last Admin: 09/18/20 07:55 Dose: 2 mls/min Documented by: Acetaminophen (Ofirmev) 1,000 mg in 100 mls @ 400 mls/hr IV Q8H PRN PRN Reason: fever/pain Stop: 09/20/20 00:41 Last Infusion: 09/17/20 19:05 Dose: Infused Documented by: Dextrose (D5w) 1,000 mls @ 100 mls/hr IV .Q10H [facility] Stop: 10/17/20 00:41 Last Admin: 09/18/20 07:55 Dose: 100 mls/hr Documented by: Doxycycline Hyclate 100 mg/ (Dextrose) 110 mls @ 50 mls/hr IV Q12H [facility] Stop: 09/24/20 00:59 Last Admin: 09/18/20 13:11 Dose: 50 mls/hr Documented by: Cefepime HCl 2,000 mg/ Syringe 20 mls @ 5 mls/min IV Q12H [facility]; Protocol Stop: 09/24/20 03:59 Last Admin: 09/18/20 02:42 Dose: 5 mls/min Documented by: Heparin Sodium/Dextrose (Heparin Sodium/Dextrose) 25,000 units in 500 mls @ 10 mls/hr IV .Q24H [facility]; Protocol Stop: 10/17/20 11:59 Last Admin: 09/18/20 11:57 Dose: 500 units/hr, 10 mls/hr Documented by: Dexamethasone 6 mg/ Syringe 1.5 mls @ 1 mls/min IV DAILY [facility] Stop: 09/27/20 22:44 Last Admin: 09/18/20 00:10 Dose: 1 mls/min Documented by: Levothyroxine Sodium 44 mcg/ (Syringe) 2.2 mls @ 2 mls/min IV Q72H [facility] Stop: 10/21/20 08:59 Insulin Aspart (Insulin Aspart 100 Units/Ml 3 Ml Pen) 0 units SC ACHS [facility] Stop: 10/17/20 20:59 Last Admin: 09/18/20 11:56 Dose: 2 units Documented by: Miscellaneous (Remove Clonidine Patch) 1 ea N/A Tu@0859 [facility] Stop: 10/24/20 08:58 Miscellaneous (Check Clonidine Patch Placement) 1 ea N/A QS [facility] Stop: 10/17/20 07:59 Last Admin: 09/18/20 07:55 Dose: 1 ea Documented by: Miscellaneous (Carbohydrates For Hypoglycemia ) 15 - 30 gm PO UD PRN PRN Reason: Hypoglycemia Protocol Stop: 10/17/20 20:32 Miscellaneous Information (Cefepime Consult Active) 1 ea N/A UD PRN PRN Reason: Consult Stop: 10/17/20 00:41 Ondansetron HCl (Ondansetron Inj 2 Mg/Ml 2 Ml Vial) 4 mg IV Q6H PRN PRN Reason: Nausea Stop: 10/17/20 00:41 Sodium Chloride (Sodium Chloride 0.9% 10ml Flush) 30 ml IV Q24H [facility] Stop: 09/21/20 23:01 Last Admin: 09/18/20 02:41 Dose: 30 ml Documented by: (1) Dementia Dementia behavioral disturbance: without behavioral disturbance Dementia t ype: unspecified type Qualified Code(s): F03.90 - Unspecified dementia without behavioral disturbance
[2020-09-18 15:10] LABS: Partial Thromboplastin Ratio 3.2
[2020-09-18 15:23] LABS: Partial Thromboplastin Time 90.6 Seconds (21.0-31.0)
[2020-09-18 23:10] LABS: Partial Thromboplastin Ratio 1.4; Partial Thromboplastin Time 38.5 Seconds (21.0-31.0)
[2020-09-19] MEDS: CEFEPIME 2,000 MG in SYRINGE 0 ML IV SCH ×2 (03:41→17:05)
[2020-09-19] MEDS: DOXYCYCLINE HYCLATE 100 MG in DEXTROSE 5% 100 ML IV SCH ×2 (03:41→12:57)
[2020-09-19] MEDS: CHECK CLONIDINE PATCH PLACEMENT SCH ×3 (04:58→17:05)
[2020-09-19] MEDS: SODIUM CHLORIDE 0.9% 10ML FLUSH IV SCH ×2 (04:58→22:05)
[2020-09-19] MEDS: DEXTROSE 5% 1,000 ML IV SCH ×2 (05:01→17:05)
[2020-09-19 06:50] LABS: Basophils # (auto) 0.01 K/uL (0-0.2); Basophils % (auto) 0.1 %; Hematocrit (blood only) 39.9 % (37-47); Hemoglobin 12.8 g/dL (12.0-16.0); Immature Granulocytes # (auto) 0.11 K/uL (0.00-0.02); Lymphocytes # (auto) 1.54 K/uL (1.2-3.4); Lymphocytes % (auto) 13.4 %; Mean Corpuscular Hemoglobin 29.3 pg (25-34); Mean Corpuscular Hgb Conc 32.1 g/dL (32-36); Mean Corpuscular Volume 91.3 fL (80-100); Mean Platelet Volume 11.4 fL (7.4-10.4); Monocytes # (auto) 0.88 K/uL (0.11-0.59); Monocytes % (auto) 7.7 %; Neutrophils # (auto) 8.95 K/uL (1.4-6.5); Neutrophils % (auto) 77.8 %; Platelet Count 257 K/uL (130-400); RDW Coefficient of Variation 14.9 % (11.5-14.5); RDW Standard Deviation 50.2 fL (36.4-46.3); Red Blood Count 4.37 M/uL (4.2-5.4); White Blood Count 11.49 K/uL (4.8-10.8)
[2020-09-19] MEDS: HEPARIN SODIUM/DEXTROSE 25,000 UNITS/500 ML BAG IV SCH ×2 (06:59→12:57)
[2020-09-19 07:12] LABS: Partial Thromboplastin Ratio 2.1; Partial Thromboplastin Time 59.9 Seconds (21.0-31.0)
[2020-09-19 07:26] LABS: BUN Creatinine Ratio 39.4 (10-20); Calcium 9.3 mg/dl (8.5-10.1); Creatinine Clr Calc Pharmacy 43.2 ml/min; Est GFR (African American) 67.7; Est GFR (Non-African American) 58.4; Magnesium 2.2 mg/dl (1.8-2.4); Potassium 3.5 mmol/L (3.5-5.1)
[2020-09-19 07:27] LABS: Phosphorus 2.7 mg/dl (2.5-4.9)
[2020-09-19] MEDS: INSULIN ASPART 100 UNITS/ML 3 ML PEN SC SCH ×4 (08:56→21:01)
[2020-09-19] MEDS: dexAMETHasone 6 MG in SYRINGE 0 ML IV SCH (09:06)
[2020-09-19] MEDS: THIAMINE HCL 100 MG in SYRINGE 9 ML IV SCH (09:07)
--- NOTE | 2020-09-19 14:19 | Hospitalist Progress Note ---
Date of Service September 19, 2020 Assessment & Plan (1) Acute metabolic encephalopathy: Multifactorial etiology includes but not limited to electrolyte abnormality, acute infection,sepsis, acute hypoxemia, hospital delirium (high risk in this dementia patient), Ppoor PO intake and generalized weakness/fatigue. Hemodynamically stable Denies any acute confusion Resolved acute metabolic encephalopathy (2) Sepsis: 2/2 acute infection-likely viral pneumonia, less likely UTI and appears to be from respiratory illness. She could also simply have fever from acute PE/DVT. (3) Acute respiratory failure with hypoxia: Multifactorial etiology in setting of pneumonia and acute PE. Cont oxygen supplementation which appears to be improving/stable. She has been saturating more than 93% on room air at times Continue with 2 L of nasal cannula oxygen (4) Pulmonary embolus: In the setting of acute DVT, acute infection and recent immobilization 2/2 malaise in NH, now with hypoxia that is acute, the PE seen on imaging is likely something that acutely developed. Has been on intravenous heparin. CTA Showed: 1. No acute pulmonary emboli identified. 2. Small linear filling defect within the left lower lobe pulmonary artery suggestive of a chronic pulmonary embolus. This finding will be called/faxed to the ordering provider at time of dictation. 2. Lower lobe predominant multifocal groundglass opacities which favor an infectious process such as viral pneumonia. Will need to discuss about continued anticoagulation likely with a DOAC-we will discuss with the daughter (5) Acute deep vein thrombosis (DVT): Heparin drip as above. (6) Pneumonia: Procalcitonin was low on admission and infiltrate pattern is reflective of a viral etiology. Negative covid, Flu and RSV screenings on admission, but high risk of false negative given current clinical picture. Receiving empiric cefepime/doxycycline for now. Procalcitonin level is not high, blood and urine cultures remain negative Will de-escalate antibiotics tomorrow She was on Cipro before not sure of the cause for that We will give her Levaquin for atypical coverage as well and continue for a total of 5 days Repeat Covid 19 test came back positive Likely has severe Covid pneumonia Has been getting intravenous dexamethasone received 1 dose of remdesivir Remains asymptomatic and does not require any oxygen Will not continue any more remdesivir The role of convalescent plasma remains uncertain and will not give any since he remains asymptomatic We will discuss with the daughter Has been doing fine and even circulation remains more than 93% on room air (7) Dementia: Severe, patient resides in a NH. Currently unable to communicate with staff or tolerate PO. Nutrition and speech consulted. Requires help with ADL S for most of the time (8) Hypernatremia: Cont with free water to reverse this. Stop q4h BMP and repeat in am. (9) Demand ischemia: Likely related to sepsis picture. No escalating velocity in troponin rise overnight when trended. Could consider echo to definitively rule out any acute wall motion abnormality. (10) Acute renal failure: Related to sepsis. Repeat BMP once she is more resuscitated and rehydrated. (11) Hypothyroidism: cont IV replacement while NPO (12) DVT prophylaxis: heparin drip Full Code Dispo-I did discuss the problems above and the plan with her daughter. She asked if there might be and ETP made for her to be with her mother and I told her we would need to see how she progressed clinically and then we could check this with the administration. Admission and Anticipated Discharge Date Admission Date: September 16, 2020 Subjective 09/18/2020 The patient was seen and examined in telemetry unit She has profound dementia and this morning seems to be noncommunicative Otherwise remains stable with stable vitals 09/19/2020 The patient was seen and examined in telemetry/Covid room He remains stable and denies any acute symptoms 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 Review of Systems Review of Systems: Unobtainable due to mental health condition Physical Exam Physical Exam: Lying in bed comfortably Constitutional: well developed; no acute distress and not ill appearing Eyes: PERRL, conjunctivae normal, anicteric sclerae ENMT: external ear and nose normal, oropharynx normal Neck: trachea midline, no thyromegaly Respiratory: no respiratory distress Auscultation: + diminished lung sounds and + crackles (Minimal crackles at the bases) Cardiovascular: Rate/Rhythm: regular rate and regular rhythm Heart Sounds: no murmur Extremities: + edema (Trace edema bilaterally) Gastrointestinal (Abdomen): Inspection/Auscultation: normal bowel sounds; abdomen not distended Percussion/Palpation: abdomen soft; abdomen nontender Musculoskeletal: No acute arthritis in any joint Psychiatric: Affect: euthymic affect Cognition: + recent memory not intact and + remote memory not intact Insight: + poor insight Judgement: + poor judgement Lymphatic: no cervical or axillary lymphadenopathy Results & Data Results & Data ([facility]) Vital Signs (Past 12 Hours) Vital Signs Temp Pulse Pulse Resp BP Pulse Ox 09/19/20 11:19 96 09/19/20 11:13 37.0 C 66 138/62 70 L 09/19/20 08:00 67 09/19/20 07:45 36.7 C 77 148/78 H 97 09/19/20 03:42 36.5 C 70 20 154/70 H 95 Laboratory Results Short CBC 09/19/20 Range/Units 06:27 WBC 11.49 H (4.8-10.8) K/uL Hgb 12.8 (12.0-16.0) g/dL Hct 39.9 (37-47) % Plt Count 257 (130-400) K/uL BMP 09/19/20 06:27 Sodium 145 Potassium 3.5 Chloride 116 H Carbon Dioxide 21 BUN 36 H Creatinine 0.92 Glucose 119 H Calcium 9.3 Medications Administered Current Inpatient Medications Clonidine HCl (Clonidine Hcl 0.1 Mg/24 Hr Transderm Sys) 1 patch TD Tu@0900 [facility] Stop: 10/17/20 04:14 Last Admin: 09/17/20 05:03 Dose: 1 patch Documented by: Dextrose (Dextrose 50% 50 Ml Syringe) 25 - 50 ml IV UD PRN; Protocol PRN Reason: Hypoglycemia Protocol Stop: 10/17/20 20:32 Glucagon (Glucagon For Inj 1 Mg Vial) 1 mg SQ UD PRN; Protocol PRN Reason: Hypoglycemia Protocol Stop: 10/17/20 20:32 Glucose (Glucose 10 Tabs/Tube) 4 - 8 tabs PO UD PRN; Protocol PRN Reason: Hypoglycemia Protocol Stop: 10/17/20 20:32 Glucose (Glucose 40% Gel 15 Gm Tube) 15 - 30 gm PO UD PRN; Protocol PRN Reason: Hypoglycemia Protocol Stop: 10/17/20 20:32 Thiamine HCl 100 mg/ Syringe 10 mls @ 2 mls/min IV QAM [facility] Stop: 10/17/20 08:59 Last Admin: 09/19/20 09:07 Dose: 2 mls/min Documented by: Acetaminophen (Ofirmev) 1,000 mg in 100 mls @ 400 mls/hr IV Q8H PRN PRN Reason: fever/pain Stop: 09/20/20 00:41 Last Infusion: 12/08/20 19:05 Dose: Infused Documented by: Dextrose (D5w) 1,000 mls @ 100 mls/hr IV .Q10H [facility] Stop: 10/17/20 00:41 Last Admin: 09/19/20 05:01 Dose: 100 mls/hr Documented by: Doxycycline Hyclate 100 mg/ (Dextrose) 110 mls @ 50 mls/hr IV Q12H [facility] Stop: 09/24/20 00:59 Last Admin: 09/19/20 12:57 Dose: 50 mls/hr Documented by: Cefepime HCl 2,000 mg/ Syringe 20 mls @ 5 mls/min IV Q12H [facility]; Protocol Stop: 09/24/20 03:59 Last Admin: 09/19/20 03:41 Dose: 5 mls/min Documented by: Heparin Sodium/Dextrose (Heparin Sodium/Dextrose) 25,000 units in 500 mls @ 9 mls/hr IV .Q24H [facility]; Protocol Stop: 10/17/20 11:59 Last Admin: 09/19/20 12:57 Dose: Not Given Documented by: Dexamethasone 6 mg/ Syringe 1.5 mls @ 1 mls/min IV DAILY [facility] Stop: 09/27/20 22:44 Last Admin: 09/19/20 09:06 Dose: 1 mls/min Documented by: Levothyroxine Sodium 44 mcg/ (Syringe) 2.2 mls @ 2 mls/min IV Q72H [facility] Stop: 10/21/20 08:59 Insulin Aspart (Insulin Aspart 100 Units/Ml 3 Ml Pen) 0 units SC ACHS [facility] Stop: 10/17/20 20:59 Last Admin: 09/19/20 12:34 Dose: Not Given Documented by: Miscellaneous (Remove Clonidine Patch) 1 ea N/A Tu@0859 [facility] Stop: 10/24/20 08:58 Miscellaneous (Check Clonidine Patch Placement) 1 ea N/A QS [facility] Stop: 10/17/20 07:59 Last Admin: 09/19/20 09:07 Dose: 1 ea Documented by: Miscellaneous (Carbohydrates For Hypoglycemia ) 15 - 30 gm PO UD PRN PRN Reason: Hypoglycemia Protocol Stop: 10/17/20 20:32 Miscellaneous Information (Cefepime Consult Active) 1 ea N/A UD PRN PRN Reason: Consult Stop: 10/17/20 00:41 Sodium Chloride (Sodium Chloride 0.9% 10ml Flush) 30 ml IV Q24H [facility] Stop: 09/21/20 23:01 Last Admin: 09/19/20 04:58 Dose: 30 ml Documented by: (1) Dementia Dementia behavioral disturbance: without behavioral disturbance Dementia type: unspecified type Qualified Code(s): F03.90 - Unspecified dementia without behavioral disturbance
[2020-09-19] MEDS ORDERED: MENTHOL-ZINC OXIDE 360 APPLN/120 GM TUBE EXT PRN (23:13)
[2020-09-19] MEDS ORDERED: NYSTATIN CR 15 GM TUBE EXT PRN (23:13)
[2020-09-19] MEDS ORDERED: FUROSEMIDE 20 MG TAB PO PRN (23:13)
[2020-09-19] MEDS ORDERED: LORATADINE 10 MG TAB PO PRN (23:13)
[2020-09-19] MEDS ORDERED: NYSTATIN POWDER 15GM BTL EXT PRN (23:13)
[2020-09-20] MEDS: levoFLOXacin 500 MG TAB PO SCH ×2 (00:39→12:24)
[2020-09-20] MEDS: amLODIPine BESYLATE 5 MG TAB PO SCH ×2 (00:39→09:04)
[2020-09-20] MEDS: CHECK CLONIDINE PATCH PLACEMENT SCH ×3 (00:39→15:28)
[2020-09-20] MEDS: DONEPEZIL HCL 10 MG TAB PO SCH ×2 (00:39→21:53)
[2020-09-20] MEDS: DEXTROSE 5% 1,000 ML IV SCH ×2 (03:30→15:38)
[2020-09-20] MEDS: LEVOTHYROXINE SODIUM 88 MCG TABLET PO SCH (05:48)
[2020-09-20 06:50] LABS: Basophils # (auto) 0.01 K/uL (0-0.2); Basophils % (auto) 0.1 %; Hematocrit (blood only) 36.9 % (37-47); Hemoglobin 12.3 g/dL (12.0-16.0); Immature Granulocytes # (auto) 0.13 K/uL (0.00-0.02); Immature Granulocytes % (auto) 1.2 %; Lymphocytes # (auto) 1.33 K/uL (1.2-3.4); Lymphocytes % (auto) 12.1 %; Mean Corpuscular Hemoglobin 29.4 pg (25-34); Mean Corpuscular Hgb Conc 33.3 g/dL (32-36); Mean Corpuscular Volume 88.3 fL (80-100); Mean Platelet Volume 12.1 fL (7.4-10.4); Monocytes # (auto) 0.89 K/uL (0.11-0.59); Monocytes % (auto) 8.1 %; Neutrophils # (auto) 8.59 K/uL (1.4-6.5); Neutrophils % (auto) 78.5 %; Platelet Count 288 K/uL (130-400); RDW Standard Deviation 45.5 fL (36.4-46.3); Red Blood Count 4.18 M/uL (4.2-5.4); White Blood Count 10.95 K/uL (4.8-10.8)
[2020-09-20 07:12] LABS: Partial Thromboplastin Ratio 2.1
[2020-09-20 07:14] LABS: Partial Thromboplastin Time 58.2 Seconds (21.0-31.0)
[2020-09-20 07:29] LABS: BUN Creatinine Ratio 32.3 (10-20); Calcium 8.6 mg/dl (8.5-10.1); Creatinine Clr Calc Pharmacy 43.2 ml/min; Est GFR (African American) 67.7; Est GFR (Non-African American) 58.4; Potassium 3.2 mmol/L (3.5-5.1)
[2020-09-20] MEDS: INSULIN ASPART 100 UNITS/ML 3 ML PEN SC SCH ×4 (08:44→21:54)
[2020-09-20] MEDS: dexAMETHasone 6 MG in SYRINGE 0 ML IV SCH (08:52)
[2020-09-20] MEDS: THIAMINE HCL 100 MG in SYRINGE 9 ML IV SCH (08:56)
[2020-09-20] MEDS: VENLAFAXINE HCL 37.5 MG TAB PO SCH (09:04)
[2020-09-20] MEDS: ASPIRIN 81 MG ECTAB PO SCH (09:04)
[2020-09-20] MEDS: buPROPion XL 300 MG TABCR PO SCH (09:05)
[2020-09-20] MEDS: POTASSIUM CHLORIDE / WTR 10 MEQ/100 ML PLCT IV SCH ×2 (09:20→10:25)
--- NOTE | 2020-09-20 15:13 | Hospitalist Progress Note ---
Date of Service September 20, 2020 Assessment & Plan (1) Acute metabolic encephalopathy: Multifactorial etiology includes but not limited to electrolyte abnormality, acute infection,sepsis, acute hypoxemia, hospital delirium (high risk in this dementia patient), Ppoor PO intake and generalized weakness/fatigue. Hemodynamically stable Denies any acute confusion Resolved acute metabolic encephalopathy She is back to her baseline has not been eating and drinking Discussed with the daughter-she can be given advance diet as tolerated and she loves pizza (2) Sepsis: 2/2 acute infection-likely viral pneumonia, less likely UTI and appears to be from respiratory illness. She could also simply have fever from acute PE/DVT. (3) Acute respiratory failure with hypoxia: Multifactorial etiology in setting of pneumonia and acute PE. Cont oxygen supplementation which appears to be improving/stable. She has been saturating more than 93% on room air at times She has been saturating well on room air (4) Pulmonary embolus: In the setting of acute DVT, acute infection and recent immobilization 2/2 malaise in NH, now with hypoxia that is acute, the PE seen on imaging is likely something that acutely developed. Has been on intravenous heparin. CTA Showed: 1. No acute pulmonary emboli identified. 2. Small linear filling defect within the left lower lobe pulmonary artery suggestive of a chronic pulmonary embolus. This finding will be called/faxed to the ordering provider at time of dictation. 2. Lower lobe predominant multifocal groundglass opacities which favor an infectious process such as viral pneumonia. Will need to discuss about continued anticoagulation likely with a DOAC-we will discuss with the daughter Started on Eliquis-risk and benefits were discussed with the daughter (5) Acute deep vein thrombosis (DVT): Heparin drip as above. Has been started on Eliquis (6) Pneumonia: Procalcitonin was low on admission and infiltrate pattern is reflective of a viral etiology. Negative covid, Flu and RSV screenings on admission, but high risk of false n egative given current clinical picture. Receiving empiric cefepime/doxycycline for now. Procalcitonin level is not high, blood and urine cultures remain negative Will de-escalate antibiotics tomorrow She was on Cipro before not sure of the cause for that We will give her Levaquin for atypical coverage as well and continue for a total of 5 days Repeat Covid 19 test came back positive Likely has severe Covid pneumonia Has been getting intravenous dexamethasone received 1 dose of remdesivir Remains asymptomatic and does not require any oxygen Will not continue any more remdesivir The role of convalescent plasma remains uncertain and will not give any since he remains asymptomatic We will discuss with the daughter Has been doing fine and even circulation remains more than 93% on room air (7) Dementia: Severe, patient resides in a NH. Currently unable to communicate with staff or tolerate PO. Nutrition and speech consulted. Requires help with ADL S for most of the time (8) Hypernatremia: Cont with free water to reverse this. Stop q4h BMP and repeat in am. (9) Demand ischemia: Likely related to sepsis picture. No escalating velocity in troponin rise overnight when trended. Could consider echo to definitively rule out any acute wall motion abnormality. (10) Acute renal failure: Related to sepsis. Repeat BMP once she is more resuscitated and rehydrated. (11) Hypothyroidism: cont IV replacement while NPO (12) DVT prophylaxis: heparin drip -on Eliquis now Full Code Dispo-I did discuss the problems above and the plan with her daughter. She asked if there might be and ETP made for her to be with her mother and I told her we would need to see how she progressed clinically and then we could check this with the administration. Discussed with daughter and possible transfer on Wednesday We will continue PT and OT evaluation to get to her baseline Admission and Anticipated Discharge Date Admission Date: September 16, 2020 Subjective 09/18/2020 The patient was seen and examined in telemetry unit She has profound dementia and this morning seems to be noncommunicative Otherwise remains stable with stable vitals 09/19/2020 The patient was seen and examined in telemetry/Covid room He remains stable and denies any acute symptoms 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 09/20/2020 The patient was seen and examined in Covid unit She remains stable without any acute distress She has not been eating and drinking the way she was doing before admission She will have physical therapy to improve her weakness Review of Systems 2 Review of Systems: Unobtainable due to mental health condition Physical Exam Physical Exam: Lying in bed comfortably Constitutional: well developed; no acute distress and not ill appearing Eyes: PERRL, conjunctivae normal, anicteric sclerae ENMT: external ear and nose normal, oropharynx normal Neck: trachea midline, no thyromegaly Respiratory: no respiratory distress Auscultation: + diminished lung sounds and + crackles (Minimal crackles at the bases) Cardiovascular: Rate/Rhythm: regular rate and regular rhythm Heart Sounds: no murmur Extremities: + edema (Trace edema bilaterally) Gastrointestinal (Abdomen): Inspection/Auscultation: normal bowel sounds; abdomen not distended Percussion/Palpation: abdomen soft; abdomen nontender Musculoskeletal: No acute arthritis in any joint Neurologic: Alert and awake. Has deafness. Psychiatric: Affect: euthymic affect Cognition: + recent memory not intact and + remote memory not intact Insight: + poor insight Judgement: + poor judgement Lymphatic: no cervical or axillary lymphadenopathy Results & Data Results & Data ([facility]) Vital Signs (Past 12 Hours) Vital Signs Temp Pulse Resp BP Pulse Ox 09/20/20 11:22 37.1 C 69 18 168/72 H 93 09/20/20 07:25 37.1 C 70 18 194/73 H 94 09/20/20 04:40 36.5 C 69 18 184/74 H 92 Laboratory Results Short CBC 09/20/20 Range/Units 06:09 WBC 10.95 H (4.8-10.8) K/uL Hgb 12.3 (12.0-16.0) g/dL Hct 36.9 L (37-47) % Plt Count 288 (130-400) K/uL BMP 09/20/20 06:09 Sodium 135 L D Potassium 3.2 L Chloride 106 Carbon Dioxide 21 BUN 30 H Creatinine 0.92 Glucose 245 H Calcium 8.6 Medications Administered Current Inpatient Medications Amlodipine Besylate (Amlodipine Besylate 5 Mg Tab) 5 mg PO DAILY [facility] Stop: 10/19/20 23:12 Last Admin: 09/20/20 09:04 Dose: 5 mg Documented by: Apixaban (Apixaban 5 Mg Tablet) 10 mg PO BID [facility] Stop: 09/26/20 21:01 Aspirin (Aspirin 81 Mg Ectab) 81 mg PO DAILY@0900 [facility] Stop: 10/20/20 08:59 Last Admin: 09/20/20 09:04 Dose: 81 mg Documented by: Bupropion HCl (Bupropion Xl 300 Mg Tabcr) 300 mg PO DAILY@0900 [facility] Stop: 10/20/20 08:59 Last Admin: 09/20/20 09:05 Dose: 300 mg Documented by: Calamine/Phenol (Menthol-Zinc Oxide 360 Appln/120 Gm Tube) 1 appln EXT Q8H PRN PRN Reason: Skin Irritation Stop: 10/19/20 23:12 Clonidine HCl (Clonidine Hcl 0.1 Mg/24 Hr Transderm Sys) 1 patch TD Tu@0900 [facility] Stop: 10/17/20 04:14 Last Admin: 09/17/20 05:03 Dose: 1 patch Documented by: Dextrose (Dextrose 50% 50 Ml Syringe) 25 - 50 ml IV UD PRN; Protocol PRN Reason: Hypoglycemia Protocol Stop: 10/17/20 20:32 Donepezil HCl (Donepezil Hcl 10 Mg Tab) 10 mg PO HS [facility] Stop: 10/19/20 23:12 Last Admin: 09/20/20 00:39 Dose: 10 mg Documented by: Furosemide (Furosemide 20 Mg Tab) 20 mg PO DAILY PRN PRN Reason: Edema Stop: 10/19/20 23:12 Glucagon (Glucagon For Inj 1 Mg Vial) 1 mg SQ UD PRN; Protocol PRN Reason: Hypoglycemia Protocol Stop: 10/17/20 20:32 Glucose (Glucose 10 Tabs/Tube) 4 - 8 tabs PO UD PRN; Protocol PRN Reason: Hypoglycemia Protocol Stop: 10/17/20 20:32 Glucose (Glucose 40% Gel 15 Gm Tube) 15 - 30 gm PO UD PRN; Protocol PRN Reason: Hypoglycemia Protocol Stop: 10/17/20 20:32 Thiamine HCl 100 mg/ Syringe 10 mls @ 2 mls/min IV QAM [facility] Stop: 10/17/20 08:59 Last Admin: 09/20/20 08:56 Dose: 2 mls/min Documented by: Dextrose (D5w) 1,000 mls @ 100 mls/hr IV .Q10H [facility] Stop: 10/17/20 00:41 Last Admin: 09/20/20 03:30 Dose: 100 mls/hr Documented by: Dexamethasone 6 mg/ Syringe 1.5 mls @ 1 mls/min IV DAILY [facility] Stop: 09/27/20 22:44 Last Admin: 09/20/20 08:52 Dose: 1 mls/min Documented by: Insulin Aspart (Insulin Aspart 100 Units/Ml 3 Ml Pen) 0 units SC ACHS [facility] Stop: 10/17/20 20:59 Last Admin: 09/20/20 12:43 Dose: Not Given Documented by: Levofloxacin (Levofloxacin 750 Mg Tab) 750 mg PO Q48H [facility]; Protocol Stop: 09/27/20 10:59 Levothyroxine Sodium (Levothyroxine Sodium 88 Mcg Tablet) 88 mcg PO DAILY@0600 [facility] Stop: 10/20/20 05:59 Last Admin: 09/20/20 05:48 Dose: Not Given Documented by: Loratadine (Loratadine 10 Mg Tab) 10 mg PO DAILY PRN PRN Reason: Allergy Symptoms Stop: 10/19/20 23:12 Miscellaneous (Remove Clonidine Patch) 1 ea N/A Tu@0859 [facility] Stop: 10/24/20 08:58 Miscellaneous (Check Clonidine Patch Placement) 1 ea N/A QS [facility] Stop: 10/17/20 07:59 Last Admin: 09/20/20 08:50 Dose: 1 ea Documented by: Miscellaneous (Carbohydrates For Hypoglycemia ) 15 - 30 gm PO UD PRN PRN Reason: Hypoglycemia Protocol Stop: 10/17/20 20:32 Nystatin (Nystatin Cr 15 Gm Tube) 1 appln EXT BID PRN PRN Reason: Skin Irritation Stop: 10/19/20 23:12 Nystatin (Nystatin Powder 15gm Btl) 1 appln EXT BID PRN PRN Reason: .EXCORIATION Stop: 10/19/20 23:12 Venlafaxine HCl (Venlafaxine Hcl 37.5 Mg Tab) 37.5 mg PO DAILY@0900 [facility] Stop: 10/20/20 08:59 Last Admin: 09/20/20 09:04 Dose: 37.5 mg Documented by: (1) Dementia Dementia behavioral disturbance: without behavioral disturbance Dementia type: unspecified type Qualified Code(s): F03.90 - Unspecified dementia without behavioral disturbance
[2020-09-20] MEDS: HEPARIN SODIUM/DEXTROSE 25,000 UNITS/500 ML BAG IV SCH (15:28)
[2020-09-20] MEDS: APIXABAN 5 MG TABLET PO SCH ×2 (15:54→21:53)
[2020-09-21] MEDS: DEXTROSE 5% 1,000 ML IV SCH ×2 (01:09→14:42)
[2020-09-21] MEDS: CHECK CLONIDINE PATCH PLACEMENT SCH ×3 (01:10→17:30)
[2020-09-21] MEDS: LEVOTHYROXINE SODIUM 88 MCG TABLET PO SCH (05:24)
[2020-09-21 08:05] LABS: Partial Thromboplastin Ratio 1.2; Partial Thromboplastin Time 32.1 Seconds (21.0-31.0)
[2020-09-21 08:35] LABS: BUN Creatinine Ratio 26.3 (10-20); Calcium 8.8 mg/dl (8.5-10.1); Creatinine Clr Calc Pharmacy 45.1 ml/min; Est GFR (African American) 71.4; Est GFR (Non-African American) 61.6; Potassium 3.4 mmol/L (3.5-5.1)
[2020-09-21] MEDS: INSULIN ASPART 100 UNITS/ML 3 ML PEN SC SCH ×4 (08:43→21:01)
[2020-09-21] MEDS: dexAMETHasone 6 MG in SYRINGE 0 ML IV SCH (08:46)
[2020-09-21] MEDS: APIXABAN 5 MG TABLET PO SCH ×2 (08:47→21:03)
[2020-09-21] MEDS: buPROPion XL 300 MG TABCR PO SCH (08:48)
[2020-09-21] MEDS: ASPIRIN 81 MG ECTAB PO SCH (08:48)
[2020-09-21] MEDS: VENLAFAXINE HCL 37.5 MG TAB PO SCH (08:49)
[2020-09-21] MEDS: amLODIPine BESYLATE 5 MG TAB PO SCH (08:50)
[2020-09-21] MEDS ORDERED: LEVOTHYROXINE SODIUM 44 MCG in SYRINGE 0 ML IV SCH (09:00)
[2020-09-21] MEDS: THIAMINE HCL 100 MG in SYRINGE 9 ML IV SCH (09:07)
[2020-09-21] MEDS ORDERED: POTASSIUM CHLORIDE CRTAB 20 MEQ TABCR PO STA (09:58)
--- NOTE | 2020-09-21 15:00 | Hospitalist Progress Note ---
Date of Service September 21, 2020 Assessment & Plan (1) Acute metabolic encephalopathy: Multifactorial etiology includes but not limited to electrolyte abnormality, acute infection,sepsis, acute hypoxemia, hospital delirium (high risk in this dementia patient), Ppoor PO intake and generalized weakness/fatigue. Hemodynamically stable Denies any acute confusion Resolved acute metabolic encephalopathy She is back to her baseline has not been eating and drinking Discussed with the daughter-she can be given advance diet as tolerated and she loves pizza She has been feeling much better and remains stable She is advised to eat and drink more (2) Sepsis: 2/2 acute infection-likely viral pneumonia, less likely UTI and appears to be from respiratory illness. She could also simply have fever from acute PE/DVT. (3) Acute respiratory failure with hypoxia: Multifactorial etiology in setting of pneumonia and acute PE. Cont oxygen supplementation which appears to be improving/stable. She has been saturating more than 93% on room air at times She has been saturating well on room air (4) Pulmonary embolus: In the setting of acute DVT, acute infection and recent immobilization 2/2 malaise in NH, now with hypoxia that is acute, the PE seen on imaging is likely something that acutely developed. Has been on intravenous heparin. CTA Showed: 1. No acute pulmonary emboli identified. 2. Small linear filling defect within the left lower lobe pulmonary artery suggestive of a chronic pulmonary embolus. This finding will be called/faxed to the ordering provider at time of dictation. 2. Lower lobe predominant multifocal groundglass opacities which favor an infectious process such as viral pneumonia. Will need to discuss about continued anticoagulation likely with a DOAC-we will discuss with the daughter Started on Eliquis-risk and benefits were discussed with the daughter Has been on Eliquis since yesterday (5) Acute deep vein thrombosis (DVT): Heparin drip as above. Has been started on Eliquis (6) Pneumonia: Procalcitonin was low on admission and infiltrate pattern is reflective of a viral etiology. Negative covid, Flu and RSV screenings on admission, but high risk of false negative given current clinical picture. Receiving empiric cefepime/doxycycline for now. Procalcitonin level is not high, blood and urine cultures remain negative Will de-escalate antibiotics tomorrow She was on Cipro before not sure of the cause for that We will give her Levaquin for atypical coverage as well and continue for a total of 5 days Repeat Covid 19 test came back positive Likely has severe Covid pneumonia Has been getting intravenous dexamethasone received 1 dose of remdesivir Remains asymptomatic and does not require any oxygen Will not continue any more remdesivir The role of convalescent plasma remains uncertain and will not give any since he remains asymptomatic We will discuss with the daughter Has been doing fine and even circulation remains more than 93% on room air We will get PT and OT evaluation before going back to the cath site for her (7) Dementia: Severe, patient resides in a NH. Currently unable to communicate with staff or tolerate PO. Nutrition and speech consulted. Requires help with ADL S for most of the time (8) Hypernatremia: Cont with free water to reverse this. Stop q4h BMP and repeat in am. (9) Demand ischemia: Likely related to sepsis picture. No escalating velocity in troponin rise overnight when trended. Could consider echo to definitively rule out any acute wall motion abnormality. (10) Acute renal failure: Related to sepsis. Repeat BMP once she is more resuscitated and rehydrated. (11) Hypothyroidism: cont IV replacement while NPO (12) DVT prophylaxis: heparin drip -on Eliquis now Full Code Dispo-I did discuss the problems above and the plan with her daughter. She asked if there might be and ETP made for her to be with her mother and I told her we would need to see how she progressed clinically and then we could check this with the administration. Discussed with daughter and possible transfer on Wednesday We will continue PT and OT evaluation to get to her baseline Admission and Anticipated Discharge Date Admission Date: September 16, 2020 Subjective 09/18/2020 The patient was seen and examined in telemetry unit She has profound dementia and this morning seems to be noncommunicative Otherwise remains stable with stable vitals 09/19/2020 The patient was seen and examined in telemetry/Covid room He remains stable and denies any acute symptoms 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 09/20/2020 The patient was seen and examined in Covid unit She remains stable without any acute distress She has not been eating and drinking the way she was doing before admission She will have physical therapy to improve her weakness 09/21/2020 The patient was seen and examined in Covid unit She remains stable and denies any acute symptoms She does not have any distress as well She has been communicating and was advised to drink and eat more Review of Systems Review of Systems: Unobtainable due to mental health condition Physical Exam Physical Exam: Lying in bed comfortably Constitutional: well developed; no acute distress and not ill appearing Eyes: PERRL, conjunctivae normal, anicteric sclerae ENMT: external ear and nose normal, oropharynx normal Neck: trachea midline, no thyromegaly Respiratory: no respiratory distress Auscultation: + diminished lung sounds and + crackles (Minimal crackles at the bases) Cardiovascular: Rate/Rhythm: regular rate and regular rhythm Heart Sounds: no murmur Extremities: + edema (Trace edema bilaterally) Gastrointestinal (Abdomen): Inspection/Auscultation: normal bowel sounds; abdomen not distended Percussion/Palpation: abdomen soft; abdomen nontender Musculoskeletal: No acute arthritis in any joint Psychiatric: Affect: euthymic affect Cognition: + recent memory not intact and + remote memory not intact Insight: + poor insight Judgement: + poor judgement Lymphatic: no cervical or axillary lymphadenopathy Results & Data Results & Data ([facility]) Vital Signs (Past 12 Hours) Vital Signs Temp Pulse Resp BP Pulse Ox 09/21/20 07:20 36.9 C 64 18 154/76 H 95 Laboratory Results [facility] 09/21/20 07:33 Sodium 138 Potassium 3.4 L Chloride 109 H Carbon Dioxide 23 BUN 23 H Creatinine 0.88 Glucose 221 H Calcium 8.8 Medications Administered Current Inpatient Medications Amlodipine Besylate (Amlodipine Besylate 5 Mg Tab) 5 mg PO DAILY [facility] Stop: 10/19/20 23:12 Last Admin: 09/21/20 08:50 Dose: 5 mg Documented by: Apixaban (Apixaban 5 Mg Tablet) 10 mg PO BID [facility] Stop: 09/26/20 21:01 Last Admin: 09/21/20 08:47 Dose: 10 mg Documented by: Aspirin (Aspirin 81 Mg Ectab) 81 mg PO DAILY@0900 [facility] Stop: 10/20/20 08:59 Last Admin: 09/21/20 08:48 Dose: 81 mg Documented by: Bupropion HCl (Bupropion Xl 300 Mg Tabcr) 300 mg PO DAILY@0900 [facility] Stop: 10/20/20 08:59 Last Admin: 09/21/20 08:48 Dose: 300 mg Documented by: Calamine/Phenol (Menthol-Zinc Oxide 360 Appln/120 Gm Tube) 1 appln EXT Q8H PRN PRN Reason: Skin Irritation Stop: 10/19/20 23:12 Clonidine HCl (Clonidine Hcl 0.1 Mg/24 Hr Transderm Sys) 1 patch TD Tu@0900 [facility] Stop: 10/17/20 04:14 Last Admin: 09/17/20 05:03 Dose: 1 patch Documented by: Dextrose (Dextrose 50% 50 Ml Syringe) 25 - 50 ml IV UD PRN; Protocol PRN Reason: Hypoglycemia Protocol Stop: 10/17/20 20:32 Donepezil HCl (Donepezil Hcl 10 Mg Tab) 10 mg PO HS [facility] Stop: 10/19/20 23:12 Last Admin: 09/20/20 21:53 Dose: 10 mg Documented by: Furosemide (Furosemide 20 Mg Tab) 20 mg PO DAILY PRN PRN Reason: Edema Stop: 10/19/20 23:12 Glucagon (Glucagon For Inj 1 Mg Vial) 1 mg SQ UD PRN; Protocol PRN Reason: Hypoglycemia Protocol Stop: 10/17/20 20:32 Glucose (Glucose 10 Tabs/Tube) 4 - 8 tabs PO UD PRN; Protocol PRN Reason: Hypoglycemia Protocol Stop: 10/17/20 20:32 Glucose (Glucose 40% Gel 15 Gm Tube) 15 - 30 gm PO UD PRN; Protocol PRN Reason: Hypoglycemia Protocol Stop: 10/17/20 20:32 Thiamine HCl 100 mg/ Syringe 10 mls @ 2 mls/min IV QAM [facility] Stop: 10/17/20 08:59 Last Admin: 09/21/20 09:07 Dose: 2 mls/min Documented by: Dextrose (D5w) 1,000 mls @ 100 mls/hr IV .Q10H [facility] Stop: 10/17/20 00:41 Last Admin: 09/21/20 14:42 Dose: 100 mls/hr Documented by: Dexamethasone 6 mg/ Syringe 1.5 mls @ 1 mls/min IV DAILY [facility] Stop: 09/27/20 22:44 Last Admin: 09/21/20 08:46 Dose: 1 mls/min Documented by: Insulin Aspart (Insulin Aspart 100 Units/Ml 3 Ml Pen) 0 units SC ACHS [facility] Stop: 10/17/20 20:59 Last Admin: 09/21/20 13:10 Dose: Not Given Documented by: Levofloxacin (Levofloxacin 750 Mg Tab) 750 mg PO Q48H [facility]; Protocol Stop: 09/27/20 10:59 Levothyroxine Sodium (Levothyroxine Sodium 88 Mcg Tablet) 88 mcg PO DAILY@0600 [facility] Stop: 10/20/20 05:59 Last Admin: 09/21/20 05:24 Dose: 88 mcg Documented by: Loratadine (Loratadine 10 Mg Tab) 10 mg PO DAILY PRN PRN Reason: Allergy Symptoms Stop: 10/19/20 23:12 Miscellaneous (Remove Clonidine Patch) 1 ea N/A Tu@0859 [facility] Stop: 10/24/20 08:58 Miscellaneous (Check Clonidine Patch Placement) 1 ea N/A QS [facility] Stop: 10/17/20 07:59 Last Admin: 09/21/20 08:45 Dose: 1 ea Documented by: Miscellaneous (Carbohydrates For Hypoglycemia ) 15 - 30 gm PO UD PRN PRN Reason: Hypoglycemia Protocol Stop: 10/17/20 20:32 Nystatin (Nystatin Cr 15 Gm Tube) 1 appln EXT BID PRN PRN Reason: Skin Irritation Stop: 10/19/20 23:12 Nystatin (Nystatin Powder 15gm Btl) 1 appln EXT BID PRN PRN Reason: .EXCORIATION Stop: 10/19/20 23:12 Venlafaxine HCl (Venlafaxine Hcl 37.5 Mg Tab) 37.5 mg PO DAILY@0900 [facility] Stop: 10/20/20 08:59 Last Admin: 09/21/20 08:49 Dose: 37.5 mg Documented by: (1) Dementia Dementia behavioral disturbance: without behavioral disturbance Dementia type: unspecified type Qualified Code(s): F03.90 - Unspecified dementia without behavioral disturbance
[2020-09-21] MEDS: DONEPEZIL HCL 10 MG TAB PO SCH (21:03)
[2020-09-22] MEDS: DEXTROSE 5% 1,000 ML IV SCH ×3 (00:43→23:51)
[2020-09-22] MEDS: CHECK CLONIDINE PATCH PLACEMENT SCH ×4 (00:44→23:41)
[2020-09-22] MEDS ORDERED: Nursing to Pharmacy Communication SCH (01:00)
[2020-09-22] MEDS: LEVOTHYROXINE SODIUM 88 MCG TABLET PO SCH (05:40)
[2020-09-22] MEDS: buPROPion XL 300 MG TABCR PO SCH (08:58)
[2020-09-22] MEDS: amLODIPine BESYLATE 5 MG TAB PO SCH (08:58)
[2020-09-22] MEDS: dexAMETHasone 6 MG in SYRINGE 0 ML IV SCH (08:58)
[2020-09-22] MEDS: THIAMINE HCL 100 MG in SYRINGE 9 ML IV SCH (08:58)
[2020-09-22] MEDS: VENLAFAXINE HCL 37.5 MG TAB PO SCH (08:58)
[2020-09-22] MEDS: ASPIRIN 81 MG ECTAB PO SCH (08:59)
[2020-09-22] MEDS: APIXABAN 5 MG TABLET PO SCH ×2 (08:59→21:17)
[2020-09-22] MEDS: INSULIN ASPART 100 UNITS/ML 3 ML PEN SC SCH ×4 (09:00→21:10)
[2020-09-22 09:32] LABS: Partial Thromboplastin Ratio 1.1; Partial Thromboplastin Time 30.2 Seconds (21.0-31.0)
[2020-09-22 09:38] LABS: BUN Creatinine Ratio 23.5 (10-20); Calcium 8.4 mg/dl (8.5-10.1); Creatinine Clr Calc Pharmacy 47.8 ml/min; Est GFR (African American) 76.6; Est GFR (Non-African American) 66.1; Potassium 3.1 mmol/L (3.5-5.1)
--- NOTE | 2020-09-22 12:51 | Hospitalist Progress Note ---
Date of Service September 22, 2020 Assessment & Plan (1) Acute metabolic encephalopathy: Multifactorial etiology includes but not limited to electrolyte abnormality, acute infection,sepsis, acute hypoxemia, hospital delirium (high risk in this dementia patient), Ppoor PO intake and generalized weakness/fatigue. Hemodynamically stable Denies any acute confusion Resolved acute metabolic encephalopathy She is back to her baseline has not been eating and drinking Discussed with the daughter-she can be given advance diet as tolerated and she loves pizza She is advised to eat and drink more She has not been eating and drinking enough-we will try to give the food as advised by the daughter and there was related to the caring nurse (2) Sepsis: 2/2 acute infection-likely viral pneumonia, less likely UTI and appears to be from respiratory illness. She could also simply have fever from acute PE/DVT. (3) Acute respiratory failure with hypoxia: Multifactorial etiology in setting of pneumonia and acute PE. Cont oxygen supplementation which appears to be improving/stable. She has been saturating more than 93% on room air at times She has been saturating well on room air (4) Pulmonary embolus: In the setting of acute DVT, acute infection and recent immobilization 2/2 malaise in NH, now with hypoxia that is acute, the PE seen on imaging is likely something that acutely developed. Has been on intravenous heparin. CTA Showed: 1. No acute pulmonary emboli identified. 2. Small linear filling defect within the left lower lobe pulmonary artery sugg estive of a chronic pulmonary embolus. This finding will be called/faxed to the ordering provider at time of dictation. 2. Lower lobe predominant multifocal groundglass opacities which favor an infect ious process such as viral pneumonia. Will need to discuss about continued anticoagulation likely with a DOAC-we will discuss with the daughter Started on Eliquis-risk and benefits were discussed with the daughter Has been on Eliquis since yesterday 09/20/2020 (5) Acute deep vein thrombosis (DVT): Heparin drip as above. Has been started on Eliquis (6) Pneumonia: Procalcitonin was low on admission and infiltrate pattern is reflective of a viral etiology. Negative covid, Flu and RSV screenings on admission, but high risk of false negative given current clinical picture. Receiving empiric cefepime/doxycycline for now. Procalcitonin level is not high, blood and urine cultures remain negative Will de-escalate antibiotics tomorrow She was on Cipro before not sure of the cause for that We will give her Levaquin for atypical coverage as well and continue for a total of 5 days Repeat Covid 19 test came back positive Likely has severe Covid pneumonia Has been getting intravenous dexamethasone received 1 dose of remdesivir Remains asymptomatic and does not require any oxygen Will not continue any more remdesivir The role of convalescent plasma remains uncertain and will not give any since he remains asymptomatic We will discuss with the daughter Has been doing fine and even circulation remains more than 93% on room air We will get PT and OT evaluation before going back to the cath site for her (7) Dementia: Severe, patient resides in a NH. Currently unable to communicate with staff or tolerate PO. Nutrition and speech consulted. Requires help with ADL S for most of the time (8) Hypernatremia: Cont with free water to reverse this. Stop q4h BMP and repeat in am. (9) Demand ischemia: Likely related to sepsis picture. No escalating velocity in troponin rise overnight when trended. Could consider echo to definitively rule out any acute wall motion abnormality. (10) Acute renal failure: Related to sepsis. Repeat BMP once she is more resuscitated and rehydrated. (11) Hypothyroidism: cont IV replacement while NPO (12) DVT prophylaxis: heparin drip -on Eliquis now Full Code Dispo-I did discuss the problems above and the plan with her daughter. She asked if there might be and ETP made for her to be with her mother and I told her we would need to see how she progressed clinically and then we could check this with the administration. 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 09/20/2020 The patient was seen and examined in Covid unit She remains stable without any acute distress She has not been eating and drinking the way she was doing before admission She will have physical therapy to improve her weakness 09/21/2020 The patient was seen and examined in Covid unit She remains stable and denies any acute symptoms She does not have any distress as well She has been communicating and was advised to drink and eat more 09/22/2020 The patient was seen and examined in Covid unit She remains stable but has not been eating and/or drinking enough She does not require any oxygen and she remains asymptomatic from COVID-19 infection Review of Systems Review of Systems: Unobtainable due to mental health condition Physical Exam Physical Exam: Lying in bed comfortably Constitutional: well developed; no acute distress and not ill appearing Eyes: PERRL, conjunctivae normal, anicteric sclerae ENMT: external ear and nose normal, oropharynx normal Neck: trachea midline, no thyromegaly Respiratory: no respiratory distress Auscultation: + diminished lung sounds and + crackles (Minimal crackles at the bases) Cardiovascular: Rate/Rhythm: regular rate and regular rhythm Heart Sounds: no murmur Extremities: + edema (Trace edema bilaterally) Gastrointestinal (Abdomen): Inspection/Auscultation: normal bowel sounds; abdomen not distended Percussion/Palpation: abdomen soft; abdomen nontender Musculoskeletal: No acute arthritis in any joint Psychiatric: Affect: euthymic affect Cognition: + recent memory not intact and + remote memory not intact Insight: + poor insight Judgement: + poor judgement Lymphatic: no cervical or axillary lymphadenopathy Results & Data Results & [facility] ([facility] Vital Signs (Past 12 Hours) Vital Signs Temp Pulse Resp BP Pulse Ox 09/22/20 07:35 36.4 C L 65 18 174/76 H 97 Laboratory Results [facility] 09/22/20 08:38 Sodium 135 L Potassium 3.1 L Chloride 105 Carbon Dioxide 23 BUN 20 H Creatinine 0.83 Glucose 209 H Calcium 8.4 L Medications Administered Current Inpatient Medications Amlodipine Besylate (Amlodipine Besylate 5 Mg Tab) 5 mg PO DAILY [facility] Stop: 10/19/20 23:12 Last Admin: 09/22/20 08:58 Dose: 5 mg Documented by: Apixaban (Apixaban 5 Mg Tablet) 10 mg PO BID [facility] Stop: 09/26/20 21:01 Last Admin: 09/22/20 08:59 Dose: 10 mg Documented by: Aspirin (Aspirin 81 Mg Ectab) 81 mg PO DAILY@0900 [facility] Stop: 10/20/20 08:59 Last Admin: 09/22/20 08:59 Dose: 81 mg Documented by: Bupropion HCl (Bupropion Xl 300 Mg Tabcr) 300 mg PO DAILY@0900 [facility] Stop: 10/20/20 08:59 Last Admin: 09/22/20 08:58 Dose: 300 mg Documented by: Calamine/Phenol (Menthol-Zinc Oxide 360 Appln/120 Gm Tube) 1 appln EXT Q8H PRN PRN Reason: Skin Irritation Stop: 10/19/20 23:12 Clonidine HCl (Clonidine Hcl 0.1 Mg/24 Hr Transderm Sys) 1 patch TD Tu@09 [facility] Stop: 10/17/20 04:14 Last Admin: 09/17/20 05:03 Dose: 1 patch Documented by: Dextrose (Dextrose 50% 50 Ml Syringe) 25 - 50 ml IV UD PRN; Protocol PRN Reason: Hypoglycemia Protocol Stop: 10/17/20 20:32 Donepezil HCl (Donepezil Hcl 10 Mg Tab) 10 mg PO HS [facility] Stop: 10/19/20 23:12 Last Admin: 09/21/20 21:03 Dose: 10 mg Documented by: Furosemide (Furosemide 20 Mg Tab) 20 mg PO DAILY PRN PRN Reason: Edema Stop: 10/19/20 23:12 Glucagon (Glucagon For Inj 1 Mg Vial) 1 mg SQ UD PRN; Protocol PRN Reason: Hypoglycemia Protocol Stop: 10/17/20 20:32 Glucose (Glucose 10 Tabs/Tube) 4 - 8 tabs PO UD PRN; Protocol PRN Reason: Hypoglycemia Protocol Stop: 10/17/20 20:32 Glucose (Glucose 40% Gel 15 Gm Tube) 15 - 30 gm PO UD PRN; Protocol PRN Reason: Hypoglycemia Protocol Stop: 10/17/20 20:32 Thiamine HCl 100 mg/ Syringe 10 mls @ 2 mls/min IV QAM [facility] Stop: 10/17/20 08:59 Last Admin: 09/22/20 08:58 Dose: 2 mls/min Documented by: Dextrose (D5w) 1,000 mls @ 100 mls/hr IV .Q10H [facility] Stop: 10/17/20 00:41 Last Admin: 09/22/20 11:12 Dose: 100 mls/hr Documented by: Dexamethasone 6 mg/ Syringe 1.5 mls @ 1 mls/min IV DAILY [facility] Stop: 09/27/20 22:44 Last Admin: 09/22/20 08:58 Dose: 1 mls/min Documented by: Insulin Aspart (Insulin Aspart 100 Units/Ml 3 Ml Pen) 0 units SC ACHS [facility] Stop: 10/17/20 20:59 Last Admin: 09/22/20 09:00 Dose: 2 units Documented by: Levofloxacin (Levofloxacin 750 Mg Tab) 750 mg PO Q48H [facility]; Protocol Stop: 09/27/20 10:59 Levothyroxine Sodium (Levothyroxine Sodium 88 Mcg Tablet) 88 mcg PO DAILY@0600 [facility] Stop: 10/20/20 05:59 Last Admin: 09/22/20 05:40 Dose: 88 mcg Documented by: Loratadine (Loratadine 10 Mg Tab) 10 mg PO DAILY PRN PRN Reason: Allergy Symptoms Stop: 10/19/20 23:12 Miscellaneous (Remove Clonidine Patch) 1 ea N/A Tu@0859 [facility] Stop: 10/24/20 08:58 Miscellaneous (Check Clonidine Patch Placement) 1 ea N/A QS [facility] Stop: 10/17/20 07:59 Last Admin: 09/22/20 08:57 Dose: 1 ea Documented by: Miscellaneous (Carbohydrates For Hypoglycemia ) 15 - 30 gm PO UD PRN PRN Reason: Hypoglycemia Protocol Stop: 10/17/20 20:32 Nystatin (Nystatin Cr 15 Gm Tube) 1 appln EXT BID PRN PRN Reason: Skin Irritation Stop: 10/19/20 23:12 Nystatin (Nystatin Powder 15gm Btl) 1 appln EXT BID PRN PRN Reason: .EXCORIATION Stop: 10/19/20 23:12 Venlafaxine HCl (Venlafaxine Hcl 37.5 Mg Tab) 37.5 mg PO DAILY@0900 [facility] Stop: 10/20/20 08:59 Last Admin: 09/22/20 08:58 Dose: 37.5 mg Documented by: (1) Dementia Dementia behavioral disturbance: without behavioral disturbance Dementia type: unspecified type Qualified Code(s): F03.90 - Unspecified dementia without behavioral disturbance
[2020-09-22] MEDS: levoFLOXacin 750 MG TAB PO SCH (13:00)
[2020-09-22] MEDS: POTASSIUM CHLORIDE / WTR 10 MEQ/100 ML PLCT IV SCH ×2 (14:52→16:19)
[2020-09-22] MEDS: DONEPEZIL HCL 10 MG TAB PO SCH (21:14)
[2020-09-22] MEDS ORDERED: DEXTROSE 5% 500 ML IV SCH (23:30)
[2020-09-23] MEDS: DEXTROSE 5% 1,000 ML IV SCH ×2 (05:20→14:25)
[2020-09-23] MEDS: LEVOTHYROXINE SODIUM 88 MCG TABLET PO SCH (05:21)
[2020-09-23] MEDS: THIAMINE HCL 100 MG in SYRINGE 9 ML IV SCH (08:10)
[2020-09-23] MEDS: CHECK CLONIDINE PATCH PLACEMENT SCH ×3 (08:10→20:11)
[2020-09-23] MEDS: dexAMETHasone 6 MG in SYRINGE 0 ML IV SCH (08:10)
[2020-09-23] MEDS: amLODIPine BESYLATE 5 MG TAB PO SCH ×2 (08:12→08:25)
[2020-09-23] MEDS: ASPIRIN 81 MG ECTAB PO SCH ×2 (08:14→08:24)
[2020-09-23] MEDS: VENLAFAXINE HCL 37.5 MG TAB PO SCH ×2 (08:14→08:25)
[2020-09-23] MEDS: buPROPion XL 300 MG TABCR PO SCH ×2 (08:14→08:23)
[2020-09-23] MEDS: APIXABAN 5 MG TABLET PO SCH ×3 (08:15→08:50)
[2020-09-23 08:39] LABS: Hemoglobin 12.7 g/dL (12.0-16.0); Mean Corpuscular Hemoglobin 28.9 pg (25-34); Mean Corpuscular Hgb Conc 33.4 g/dL (32-36); Mean Corpuscular Volume 86.6 fL (80-100); Mean Platelet Volume 10.7 fL (7.4-10.4); Platelet Count 375 K/uL (130-400); RDW Coefficient of Variation 13.9 % (11.5-14.5); Red Blood Count 4.39 M/uL (4.2-5.4); White Blood Count 11.79 K/uL (4.8-10.8)
[2020-09-23 08:50] LABS: Partial Thromboplastin Time 29.2 Seconds (21.0-31.0)
[2020-09-23 09:04] LABS: BUN Creatinine Ratio 20.3 (10-20); Est GFR (African American) 78.9; Est GFR (Non-African American) 68.1; Magnesium 2.1 mg/dl (1.8-2.4); Phosphorus 2.4 mg/dl (2.5-4.9); Potassium 3.8 mmol/L (3.5-5.1)
[2020-09-23 09:13] LABS: Basophils # (auto) 0.03 K/uL (0-0.2); Basophils % (auto) 0.3 %; Eosinophils # (auto) 0.01 K/uL (0-0.5); Eosinophils % (auto) 0.1 %; Immature Granulocytes # (auto) 0.74 K/uL (0.00-0.02); Immature Granulocytes % (auto) 6.3 %; Lymphocytes # (auto) 1.94 K/uL (1.2-3.4); Lymphocytes % (auto) 16.5 %; Monocytes # (auto) 1.21 K/uL (0.11-0.59); Monocytes % (auto) 10.3 %; Neutrophils # (auto) 7.86 K/uL (1.4-6.5); Neutrophils % (auto) 66.5 %
[2020-09-23] MEDS: INSULIN ASPART 100 UNITS/ML 3 ML PEN SC SCH ×4 (09:55→20:09)
--- NOTE | 2020-09-23 15:15 | Hospitalist Progress Note ---
Date of Service September 23, 2020 Assessment & Plan (1) Acute metabolic encephalopathy: Multifactorial etiology includes but not limited to electrolyte abnormality, acute infection,sepsis, acute hypoxemia, hospital delirium (high risk in this dementia patient), Ppoor PO intake and generalized weakness/fatigue. Hemodynamically stable Denies any acute confusion Resolved acute metabolic encephalopathy She is back to her baseline has not been eating and drinking Discussed with the daughter-she can be given advance diet as tolerated and she loves pizza She is advised to eat and drink more She has not been eating and drinking enough-we will try to give the food as advised by the daughter and there was related to the caring nurse No acute confusion and she seems to be at her baseline (2) Sepsis: 2/2 acute infection-likely viral pneumonia, less likely UTI and appears to be from respiratory illness. She could also simply have fever from acute PE/DVT. (3) Acute respiratory failure with hypoxia: Multifactorial etiology in setting of pneumonia and acute PE. Cont oxygen supplementation which appears to be improving/stable. She has been saturating more than 93% on room air at times She has been saturating well on room air (4) Pulmonary embolus: In the setting of acute DVT, acute infection and recent immobilization 2/2 malaise in NH, now with hypoxia that is acute, the PE seen on imaging is likely something that acutely developed. Has been on intravenous heparin. CTA Showed: 1. No acute pulmonary emboli identified. 2. Small linear filling defect within the left lower lobe pulmonary artery suggestive of a chronic pulmonary embolus. This finding will be called/faxed to the ordering provider at time of dictation. 2. Lower lobe predominant multifocal groundglass opacities which favor an infectious process such as viral pneumonia. Will need to discuss about continued anticoagulation likely with a DOAC-we will discuss with the daughter Started on Eliquis-risk and benefits were discussed with the daughter Has been on Eliquis since yesterday 09/20/2020 (5) Acute deep vein thrombosis (DVT): Heparin drip as above. Has been started on Eliquis (6) Pneumonia: Procalcitonin was low on admission and infiltrate pattern is reflective of a viral etiology. Negative covid, Flu and RSV screenings on admission, but high risk of false negative given current clinical picture. Receiving empiric cefepime/doxycycline for now. Procalcitonin level is not high, blood and urine cultures remain negative Will de-escalate antibiotics tomorrow She was on Cipro before not sure of the cause for that We will give her Levaquin for atypical coverage as well and continue for a total of 5 days Finish the course of antibiotic Repeat Covid 19 test came back positive Likely has severe Covid pneumonia Has been getting intravenous dexamethasone received 1 dose of remdesivir Remains asymptomatic and does not require any oxygen Will not continue any more remdesivir The role of convalescent plasma remains uncertain and will not give any since he remains asymptomatic We will discuss with the daughter Has been doing fine and even circulation remains more than 93% on room air We will get PT and OT evaluation before going back to the cath site for her Will need 10 days of isolation prior to going back to the personal snf (7) Dementia: Severe, patient resides in a NH. Currently unable to communicate with staff or tolerate PO. Nutrition and speech consulted. Requires help with ADL S for most of the time (8) Hypernatremia: Cont with free water to reverse this. Stop q4h BMP and repeat in am. (9) Demand ischemia: Likely related to sepsis picture. No escalating velocity in troponin rise overnight when trended. Could consider echo to definitively rule out any acute wall motion abnormality. (10) Acute renal failure: Related to sepsis. Repeat BMP once she is more resuscitated and rehydrated. (11) Hypothyroidism: cont IV replacement while NPO (12) DVT prophylaxis: heparin drip -on Eliquis now Full Code Dispo-I did discuss the problems above and the plan with her daughter. She asked if there might be and ETP made for her to be with her mother and I told her we would need to see how she progressed clinically and then we could check this with the administration. 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 09/20/2020 The patient was seen and examined in Covid unit She remains stable without any acute distress She has not been eating and drinking the way she was doing before admission She will have physical therapy to improve her weakness 09/21/2020 The patient was seen and examined in Covid unit She remains stable and denies any acute symptoms She does not have any distress as well She has been communicating and was advised to drink and eat more 09/22/2020 The patient was seen and examined in Covid unit She remains stable but has not been eating and/or drinking enough She does not require any oxygen and she remains asymptomatic from COVID-19 infection 09/23/2020 The patient was seen and examined in Covid unit She remains stable but has not been drinking and eating enough She does not require any oxygen to maintain saturation above 94% Denies any symptoms Review of Systems Review of Systems: Unobtainable due to mental health condition Physical Exam Physical Exam: Lying in bed comfortably Constitutional: well developed; no acute distress and not ill appearing Eyes: PERRL, conjunctivae normal, anicteric sclerae ENMT: external ear and nose normal, oropharynx normal Neck: trachea midline, no thyromegaly Respiratory: no respiratory distress Auscultation: + diminished lung sounds and + crackles (Minimal crackles at the bases) Cardiovascular: Rate/Rhythm: regular rate and regular rhythm Heart Sounds: no murmur Extremities: + edema (Trace edema bilaterally) Gastrointestinal (Abdomen): Inspection/Auscultation: normal bowel sounds; abdomen not distended Percussion/Palpation: abdomen soft; abdomen nontender Musculoskeletal: No acute arthritis involving any joint Psychiatric: Affect: euthymic affect Cognition: + recent memory not intact and + remote memory not intact Insight: + poor insight Judgement: + poor judgement Lymphatic: no cervical or axillary lymphadenopathy Results & Data Results & Data ([facility]) Vital Signs (Past 12 Hours) Vital Signs Temp Pulse Resp BP Pulse Ox 09/23/20 07:50 36.6 C 66 16 151/75 H 97 Laboratory Results Short CBC 09/23/20 Range/Units 08:25 WBC 11.79 H (4.8-10.8) K/uL Hgb 12.7 (12.0-16.0) g/dL Hct 38.0 (37-47) % Plt Count 375 (130-400) K/uL BMP 12/14/20 08:25 Sodium 137 Potassium 3.8 D Chloride 107 Carbon Dioxide 23 BUN 16 Creatinine 0.81 Glucose 180 H Calcium 9.0 Medications Administered Current Inpatient Medications Amlodipine Besylate (Amlodipine Besylate 5 Mg Tab) 5 mg PO DAILY [facility] Stop: 10/19/20 23:12 Last Admin: 09/23/20 08:25 Dose: Not Given Documented by: Apixaban (Apixaban 5 Mg Tablet) 10 mg PO BID [facility] Stop: 09/26/20 21:01 Last Admin: 09/23/20 08:50 Dose: Not Given Documented by: Aspirin (Aspirin 81 Mg Ectab) 81 mg PO DAILY@0900 [facility] Stop: 10/20/20 08:59 Last Admin: 09/23/20 08:24 Dose: Not Given Documented by: Bupropion HCl (Bupropion Xl 300 Mg Tabcr) 300 mg PO DAILY@0900 [facility] Stop: 10/20/20 08:59 Last Admin: 09/23/20 08:23 Dose: Not Given Documented by: Calamine/Phenol (Menthol-Zinc Oxide 360 Appln/120 Gm Tube) 1 appln EXT Q8H PRN PRN Reason: Skin Irritation Stop: 10/19/20 23:12 Clonidine HCl (Clonidine Hcl 0.1 Mg/24 Hr Transderm Sys) 1 patch TD Tu@0900 [facility] Stop: 10/17/20 04:14 Last Admin: 09/17/20 05:03 Dose: 1 patch Documented by: Dextrose (Dextrose 50% 50 Ml Syringe) 25 - 50 ml IV UD PRN; Protocol PRN Reason: Hypoglycemia Protocol Stop: 10/17/20 20:32 Donepezil HCl (Donepezil Hcl 10 Mg Tab) 10 mg PO HS [facility] Stop: 10/19/20 23:12 Last Admin: 09/22/20 21:14 Dose: 10 mg Documented by: Furosemide (Furosemide 20 Mg Tab) 20 mg PO DAILY PRN PRN Reason: Edema Stop: 10/19/20 23:12 Glucagon (Glucagon For Inj 1 Mg Vial) 1 mg SQ UD PRN; Protocol PRN Reason: Hypoglycemia Protocol Stop: 10/17/20 20:32 Glucose (Glucose 10 Tabs/Tube) 4 - 8 tabs PO UD PRN; Protocol PRN Reason: Hypoglycemia Protocol Stop: 10/17/20 20:32 Glucose (Glucose 40% Gel 15 Gm Tube) 15 - 30 gm PO UD PRN; Protocol PRN Reason: Hypoglycemia Protocol Stop: 10/17/20 20:32 Thiamine HCl 100 mg/ Syringe 10 mls @ 2 mls/min IV QAM [facility] Stop: 10/17/20 08:59 Last Admin: 09/23/20 08:10 Dose: 2 mls/min Documented by: Dexamethasone 6 mg/ Syringe 1.5 mls @ 1 mls/min IV DAILY [facility] Stop: 09/27/20 22:44 Last Admin: 09/23/20 08:10 Dose: 1 mls/min Documented by: Dextrose (D5w) 1,000 mls @ 100 mls/hr IV .Q10H [facility] Stop: 10/23/20 04:29 Last Admin: 09/23/20 14:25 Dose: 100 mls/hr Documented by: Insulin Aspart (Insulin Aspart 100 Units/Ml 3 Ml Pen) 0 units SC ACHS [facility] Stop: 10/17/20 20:59 Last Admin: 09/23/20 13:02 Dose: 3 units Documented by: Levofloxacin (Levofloxacin 750 Mg Tab) 750 mg PO Q48H [facility]; Protocol Stop: 09/27/20 10:59 Last Admin: 09/22/20 13:00 Dose: 750 mg Documented by: Levothyroxine Sodium (Levothyroxine Sodium 88 Mcg Tablet) 88 mcg PO DAILY@0600 [facility] Stop: 10/20/20 05:59 Last Admin: 09/23/20 05:21 Dose: 88 mcg Documented by: Loratadine (Loratadine 10 Mg Tab) 10 mg PO DAILY PRN PRN Reason: Allergy Symptoms Stop: 10/19/20 23:12 Miscellaneous (Remove Clonidine Patch) 1 ea N/A Tu@0859 [facility] Stop: 10/24/20 08:58 Miscellaneous (Check Clonidine Patch Placement) 1 ea N/A QS [facility] Stop: 10/17/20 07:59 Last Admin: 09/23/20 08:10 Dose: 1 ea Documented by: Miscellaneous (Carbohydrates For Hypoglycemia ) 15 - 30 gm PO UD PRN PRN Reason: Hypoglycemia Protocol Stop: 10/17/20 20:32 Nystatin (Nystatin Cr 15 Gm Tube) 1 appln EXT BID PRN PRN Reason: Skin Irritation Stop: 10/19/20 23:12 Nystatin (Nystatin Powder 15gm Btl) 1 appln EXT BID PRN PRN Reason: .EXCORIATION Stop: 10/19/20 23:12 Venlafaxine HCl (Venlafaxine Hcl 37.5 Mg Tab) 37.5 mg PO DAILY@0900 [facility] Stop: 10/20/20 08:59 Last Admin: 09/23/20 08:25 Dose: Not Given Documented by: (1) Dementia Dementia behavioral disturbance: without behavioral disturbance Dementia type: unspecified type Qualified Code(s): F03.90 - Unspecified dementia without behavioral disturbance
[2020-09-23] MEDS: DONEPEZIL HCL 10 MG TAB PO SCH (20:06)
[2020-09-24] MEDS: DEXTROSE 5% 1,000 ML IV SCH ×3 (01:31→20:37)
[2020-09-24] MEDS: LEVOTHYROXINE SODIUM 88 MCG TABLET PO SCH (05:55)
[2020-09-24 07:51] LABS: Partial Thromboplastin Ratio 0.9; Partial Thromboplastin Time 25.3 Seconds (21.0-31.0)
[2020-09-24] MEDS: THIAMINE HCL 100 MG in SYRINGE 9 ML IV SCH (08:02)
[2020-09-24] MEDS: dexAMETHasone 6 MG in SYRINGE 0 ML IV SCH (08:03)
[2020-09-24] MEDS: CHECK CLONIDINE PATCH PLACEMENT SCH ×2 (08:03→16:22)
[2020-09-24] MEDS: cloNIDine HCL 0.1 MG/24 HR TRANSDERM SYS TD SCH (08:08)
[2020-09-24] MEDS: APIXABAN 5 MG TABLET PO SCH ×2 (08:35→20:37)
[2020-09-24] MEDS: VENLAFAXINE HCL 37.5 MG TAB PO SCH (08:35)
[2020-09-24] MEDS: ASPIRIN 81 MG ECTAB PO SCH (08:35)
[2020-09-24] MEDS: buPROPion XL 300 MG TABCR PO SCH (08:35)
[2020-09-24] MEDS: amLODIPine BESYLATE 5 MG TAB PO SCH (08:35)
[2020-09-24] MEDS: INSULIN ASPART 100 UNITS/ML 3 ML PEN SC SCH ×4 (09:55→20:46)
[2020-09-24] MEDS: levoFLOXacin 750 MG TAB PO SCH (10:31)
--- NOTE | 2020-09-24 18:26 | Hospitalist Progress Note ---
Date of Service September 24, 2020 Assessment & Plan (1) Acute metabolic encephalopathy: Multifactorial etiology includes but not limited to electrolyte abnormality, acute infection,sepsis, acute hypoxemia, hospital delirium (high risk in this dementia patient), Ppoor PO intake and generalized weakness/fatigue. Hemodynamically stable Denies any acute confusion Resolved acute metabolic encephalopathy She is back to her baseline has not been eating and drinking Discussed with the daughter-she can be given advance diet as tolerated and she loves pizza She is advised to eat and drink more She has not been eating and drinking enough-we will try to give the food as advised by the daughter and there was related to the caring nurse No acute confusion and she seems to be at her baseline Has not been eating and not drinking enough even with repeat trying (2) Sepsis: 2/2 acute infection-likely viral pneumonia, less likely UTI and appears to be from respiratory illness. She could also simply have fever from acute PE/DVT. (3) Acute respiratory failure with hypoxia: Multifactorial etiology in setting of pneumonia and acute PE. Cont oxygen supplementation which appears to be improving/stable. She has been saturating more than 93% on room air at times She has been saturating well on room air (4) Pulmonary embolus: In the setting of acute DVT, acute infection and recent immobilization 2/2 malaise in NH, now with hypoxia that is acute, the PE seen on imaging is likely something that acutely developed. Has been on intravenous heparin. CTA Showed: 1. No acute pulmonary emboli identified. 2. Small linear filling defect within the left lower lobe pulmonary artery suggestive of a chronic pulmonary embolus. This finding will be called/faxed to the ordering provider at time of dictation. 2. Lower lobe predominant multifocal groundglass opacities which favor an infectious process such as viral pneumonia. Will need to discuss about continued anticoagulation likely with a DOAC-we will discuss with the daughter Started on Eliquis-risk and benefits were discussed with the daughter Has been on Eliquis since yesterday 09/20/2020 (5) Acute deep vein thrombosis (DVT): Heparin drip as above. Has been started on Eliquis (6) Pneumonia: Procalcitonin was low on admission and infiltrate pattern is reflective of a viral etiology. Negative covid, Flu and RSV screenings on admission, but high risk of false negative given current clinical picture. Receiving empiric cefepime/doxycycline for now. Procalcitonin level is not high, blood and urine cultures remain negative Will de-escalate antibiotics tomorrow She was on Cipro before not sure of the cause for that We will give her Levaquin for atypical coverage as well and continue for a total of 5 days Finished the course of antibiotic Repeat Covid 19 test came back positive Likely has severe Covid pneumonia Has been getting intravenous dexamethasone received 1 dose of remdesivir Remains asymptomatic and does not require any oxygen Will not continue any more remdesivir The role of convalescent plasma remains uncertain and will not give any since he remains asymptomatic We will discuss with the daughter Has been doing fine and even circulation remains more than 93% on room air We will get PT and OT evaluation before going back to the cath site for her Will need 10 days of isolation prior to going back to the personal fdc Will be discharged to personal fdc on Wednesday (7) Dementia: Severe, patient resides in a NH. Currently unable to communicate with staff or tolerate PO. Nutrition and speech consulted. Requires help with ADL S for most of the time (8) Hypernatremia: Cont with free water to reverse this. Stop q4h BMP and repeat in am. (9) Demand ischemia: Likely related to sepsis picture. No escalating velocity in troponin rise overnight when trended. Could consider echo to definitively rule out any acute wall motion abnormality. (10) Acute renal failure: Related to sepsis. Repeat BMP once she is more resuscitated and rehydrated. (11) Hypothyroidism: cont IV replacement while NPO (12) DVT prophylaxis: heparin drip -on Eliquis now Full Code Dispo-I did discuss the problems above and the plan with her daughter. She asked if there might be and ETP made for her to be with her mother and I told her we would need to see how she progressed clinically and then we could check this with the administration. Discussed with daughter and possible transfer on Wednesday We will continue PT and OT evaluation to get to her baseline Will be discharged to the personal care facility after 10 days of isolation in the hospital-likely on Wednesday Admission and Anticipated Discharge Date Admission Date: September 16, 2020 Subjective 09/18/2020 The patient was seen and examined in telemetry unit She has profound dementia and this morning seems to be noncommunicative Otherwise remains stable with stable vitals 09/19/2020 The patient was seen and examined in telemetry/Covid room He remains stable and denies any acute symptoms 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 09/20/2020 The patient was seen and examined in Covid unit She remains stable without any acute distress She has not been eating and drinking the way she was doing before admission She will have physical therapy to improve her weakness 09/21/2020 The patient was seen and examined in Covid unit She remains stable and denies any acute symptoms She does not have any distress as well She has been communicating and was advised to drink and eat more 09/22/2020 The patient was seen and examined in Covid unit She remains stable but has not been eating and/or drinking enough She does not require any oxygen and she remains asymptomatic from COVID-19 infection 09/23/2020 The patient was seen and examined in Covid unit She remains stable but has not been drinking and eating enough She does not require any oxygen to maintain saturation above 94% Denies any symptoms 09/24/2020 The patient was seen and examined in Covid unit She remains stable and does not require any oxygen to maintain saturation She has not been eating and/or drinking enough Review of Systems Review of Systems: Unobtainable due to mental health condition Physical Exam Physical Exam: Lying in bed comfortably Constitutional: well developed; no acute distress and not ill appearing Eyes: PERRL, conjunctivae normal, anicteric sclerae ENMT: external ear and nose normal, oropharynx normal Neck: trachea midline, no thyromegaly Respiratory: no respiratory distress Auscultation: + diminished lung sounds and + crackles (Minimal crackles at the bases) Cardiovascular: Rate/Rhythm: regular rate and regular rhythm Heart Sounds: no murmur Extremities: + edema (Trace edema bilaterally) Gastrointestinal (Abdomen): Inspection/Auscultation: normal bowel sounds; abdomen not distended Percussion/Palpation: abdomen soft; abdomen nontender Musculoskeletal: No acute arthritis in any joint Neurologic: Alert and awake. Pleasantly confused. Minimally communicative. Generally weak Psychiatric: Affect: euthymic affect Cognition: + recent memory not intact and + remote memory not intact Insight: + poor insight Judgement: + poor judgement Lymphatic: no cervical or axillary lymphadenopathy Results & Data Results & Data ([facility]) Vital Signs (Past 12 Hours) Vital Signs Temp Pulse Resp BP Pulse Ox 09/24/20 15:30 36.8 C 70 16 158/80 H 95 09/24/20 07:39 37.0 C 63 16 149/66 H 97 Medications Administered Current Inpatient Medications Amlodipine Besylate (Amlodipine Besylate 5 Mg Tab) 5 mg PO DAILY COUNT INCLUDES THE [facility] Stop: 10/19/20 23:12 Last Admin: 09/24/20 08:35 Dose: Not Given Documented by: Apixaban (Apixaban 5 Mg Tablet) 10 mg PO BID [facility] Stop: 09/26/20 21:01 Last Admin: 09/24/20 08:35 Dose: Not Given Documented by: Aspirin (Aspirin 81 Mg Ectab) 81 mg PO DAILY@0900 COUNT INCLUDES THE [facility] Stop: 10/20/20 08:59 Last Admin: 09/24/20 08:35 Dose: Not Given Documented by: Bupropion HCl (Bupropion Xl 300 Mg Tabcr) 300 mg PO DAILY@0900 COUNT INCLUDES THE [facility] Stop: 10/20/20 08:59 Last Admin: 09/24/20 08:35 Dose: Not Given Documented by: Calamine/Phenol (Menthol-Zinc Oxide 360 Appln/120 Gm Tube) 1 appln EXT Q8H PRN PRN Reason: Skin Irritation Stop: 10/19/20 23:12 Clonidine HCl (Clonidine Hcl 0.1 Mg/24 Hr Transderm Sys) 1 patch TD Tu@0900 COUNT INCLUDES THE [facility] Stop: 10/17/20 04:14 Last Admin: 09/24/20 08:08 Dose: 1 patch Documented by: Dextrose (Dextrose 50% 50 Ml Syringe) 25 - 50 ml IV UD PRN; Protocol PRN Reason: Hypoglycemia Protocol Stop: 10/17/20 20:32 Donepezil HCl (Donepezil Hcl 10 Mg Tab) 10 mg PO HS [facility] Stop: 10/19/20 23:12 Last Admin: 09/23/20 20:06 Dose: 10 mg Documented by: Furosemide (Furosemide 20 Mg Tab) 20 mg PO DAILY PRN PRN Reason: Edema Stop: 10/19/20 23:12 Glucagon (Glucagon For Inj 1 Mg Vial) 1 mg SQ UD PRN; Protocol PRN Reason: Hypoglycemia Protocol Stop: 10/17/20 20:32 Glucose (Glucose 10 Tabs/Tube) 4 - 8 tabs PO UD PRN; Protocol PRN Reason: Hypoglycemia Protocol Stop: 10/17/20 20:32 Glucose (Glucose 40% Gel 15 Gm Tube) 15 - 30 gm PO UD PRN; Protocol PRN Reason: Hypoglycemia Protocol Stop: 10/17/20 20:32 Thiamine HCl 100 mg/ Syringe 10 mls @ 2 mls/min IV QAM COUNT INCLUDES THE [facility] Stop: 10/17/20 08:59 Last Admin: 09/24/20 08:02 Dose: 2 mls/min Documented by: Dexamethasone 6 mg/ Syringe 1.5 mls @ 1 mls/min IV DAILY COUNT INCLUDES THE [facility] Stop: 09/27/20 22:44 Last Admin: 09/24/20 08:03 Dose: 1 mls/min Documented by: Dextrose (D5w) 1,000 mls @ 100 mls/hr IV .Q10H COUNT INCLUDES THE [facility] Stop: 10/23/20 04:29 Last Admin: 09/24/20 10:31 Dose: 100 mls/hr Documented by: Insulin Aspart (Insulin Aspart 100 Units/Ml 3 Ml Pen) 0 units SC ACHS COUNT INCLUDES THE [facility] Stop: 10/17/20 20:59 Last Admin: 09/24/20 17:46 Dose: 4 units Documented by: Levofloxacin (Levofloxacin 750 Mg Tab) 750 mg PO Q48H COUNT INCLUDES THE [facility]; Protocol Stop: 09/27/20 10:59 Last Admin: 09/24/20 10:31 Dose: Not Given Documented by: Levothyroxine Sodium (Levothyroxine Sodium 88 Mcg Tablet) 88 mcg PO DAILY@0600 COUNT INCLUDES THE [facility] Stop: 10/20/20 05:59 Last Admin: 09/24/20 05:55 Dose: 88 mcg Documented by: Loratadine (Loratadine 10 Mg Tab) 10 mg PO DAILY PRN PRN Reason: Allergy Symptoms Stop: 10/19/20 23:12 Miscellaneous (Remove Clonidine Patch) 1 ea N/A Tu@0859 COUNT INCLUDES THE [facility] Stop: 10/24/20 08:58 Last Admin: 09/24/20 08:03 Dose: 1 ea Documented by: Miscellaneous (Check Clonidine Patch Placement) 1 ea N/A QS COUNT INCLUDES THE [facility] Stop: 10/17/20 07:59 Last Admin: 09/24/20 16:22 Dose: 1 ea Documented by: Miscellaneous (Carbohydrates For Hypoglycemia ) 15 - 30 gm PO UD PRN PRN Reason: Hypoglycemia Protocol Stop: 10/17/20 20:32 Nystatin (Nystatin Cr 15 Gm Tube) 1 appln EXT BID PRN PRN Reason: Skin Irritation Stop: 10/19/20 23:12 Nystatin (Nystatin Powder 15gm Btl) 1 appln EXT BID PRN PRN Reason: .EXCORIATION Stop: 10/19/20 23:12 Venlafaxine HCl (Venlafaxine Hcl 37.5 Mg Tab) 37.5 mg PO DAILY@0900 [facility] Stop: 10/20/20 08:59 Last Admin: 09/24/20 08:35 Dose: Not Given Documented by: (1) Dementia Dementia behavioral disturbance: without behavioral disturbance Dementia type: unspecified type Qualified Code(s): F03.90 - Unspecified dementia without behavioral disturbance
[2020-09-24] MEDS: DONEPEZIL HCL 10 MG TAB PO SCH (20:37)
[2020-09-25] MEDS: CHECK CLONIDINE PATCH PLACEMENT SCH ×3 (00:05→17:54)
[2020-09-25] MEDS ORDERED: hydrALAZINE HCL 20 MG/ML VIAL IV ONE (04:17)
[2020-09-25] MEDS: D5W AND 1/2NSS 1,000 ML IV SCH ×2 (04:33→21:46)
[2020-09-25] MEDS: LEVOTHYROXINE SODIUM 88 MCG TABLET PO SCH (05:50)
--- NOTE | 2020-09-25 06:31 | Hospitalist Progress Note ---
Date of Service September 25, 2020 Assessment & Plan Admission and Anticipated Discharge Date Admission Date: September 16, 2020 Subjective changed fluids to d51/2 Ns @60ml/hr. To adjust or stop fluids based on labs and assessment of patient in am. Results & Data Results & Data ([facility]) Vital Signs (Past 12 Hours) Vital Signs Temp Pulse Resp BP Pulse Ox 09/25/20 05:40 64 164/76 H 09/25/20 04:11 184/77 H 09/24/20 23:31 36.4 C L 85 20 178/98 H 96
[2020-09-25] MEDS: THIAMINE HCL 100 MG in SYRINGE 9 ML IV SCH (07:55)
[2020-09-25] MEDS: dexAMETHasone 6 MG in SYRINGE 0 ML IV SCH (07:56)
[2020-09-25 08:17] LABS: Basophils # (auto) 0.02 K/uL (0-0.2); Basophils % (auto) 0.2 %; Hematocrit (blood only) 40.1 % (37-47); Hemoglobin 13.9 g/dL (12.0-16.0); Immature Granulocytes # (auto) 0.51 K/uL (0.00-0.02); Immature Granulocytes % (auto) 3.9 %; Lymphocytes # (auto) 1.85 K/uL (1.2-3.4); Lymphocytes % (auto) 14.2 %; Mean Corpuscular Hemoglobin 29.9 pg (25-34); Mean Corpuscular Hgb Conc 34.7 g/dL (32-36); Mean Corpuscular Volume 86.2 fL (80-100); Mean Platelet Volume 11.1 fL (7.4-10.4); Monocytes # (auto) 1.36 K/uL (0.11-0.59); Monocytes % (auto) 10.4 %; Neutrophils # (auto) 9.31 K/uL (1.4-6.5); Neutrophils % (auto) 71.3 %; Nucleated RBC # (auto) 0.05 K/uL (0-0); Nucleated RBC % (auto) 0.3 %; Platelet Count 401 K/uL (130-400); RDW Coefficient of Variation 14.3 % (11.5-14.5); RDW Standard Deviation 44.2 fL (36.4-46.3); Red Blood Count 4.65 M/uL (4.2-5.4); White Blood Count 13.05 K/uL (4.8-10.8)
[2020-09-25 08:57] LABS: BUN Creatinine Ratio 20.3 (10-20); Creatinine Clr Calc Pharmacy 54.4 ml/min; Est GFR (African American) 89.5; Est GFR (Non-African American) 77.2; Potassium 3.7 mmol/L (3.5-5.1)
[2020-09-25] MEDS: INSULIN ASPART 100 UNITS/ML 3 ML PEN SC SCH ×4 (09:32→21:47)
[2020-09-25] MEDS: ASPIRIN 81 MG ECTAB PO SCH (09:38)
[2020-09-25] MEDS: amLODIPine BESYLATE 5 MG TAB PO SCH (09:38)
[2020-09-25] MEDS: VENLAFAXINE HCL 37.5 MG TAB PO SCH (09:38)
[2020-09-25] MEDS: buPROPion XL 300 MG TABCR PO SCH (09:38)
[2020-09-25] MEDS: APIXABAN 5 MG TABLET PO SCH ×2 (09:38→21:37)
[2020-09-25] MEDS ORDERED: levoFLOXacin 750 MG TAB PO SCH (12:00)
--- NOTE | 2020-09-25 15:07 | Hospitalist Progress Note ---
Date of Service September 25, 2020 Assessment & Plan (1) Acute metabolic encephalopathy: Multifactorial etiology includes but not limited to electrolyte abnormality, acute infection,sepsis, acute hypoxemia, hospital delirium (high risk in this dementia patient), Ppoor PO intake and generalized weakness/fatigue. Hemodynamically stable Denies any acute confusion Resolved acute metabolic encephalopathy She is back to her baseline has not been eating and drinking Discussed with the daughter-she can be given advance diet as tolerated and she loves pizza She remains stable but has not been eating or drinking enough with repeat trial She verbalizes that she is going to eat but when he is given food or even fed she will not swallow anything Will start Megace to stimulate appetite (2) Sepsis: 2/2 acute infection-likely viral pneumonia, less likely UTI and appears to be from respiratory illness. She could also simply have fever from acute PE/DVT. Levaquin has been stopped (3) Acute respiratory failure with hypoxia: Multifactorial etiology in setting of pneumonia and acute PE. Cont oxygen supplementation which appears to be improving/stable. She has been saturating more than 93% on room air at times She has been saturating well on room air (4) Pulmonary embolus: In the setting of acute DVT, acute infection and recent immobilization 2/2 malaise in NH, now with hypoxia that is acute, the PE seen on imaging is likely something that acutely developed. Has been on intravenous heparin. CTA Showed: 1. No acute pulmonary emboli identified. 2. Small linear filling defect within the left lower lobe pulmonary artery suggestive of a chronic pulmonary embolus. This finding will be called/faxed to the ordering provider at time of dictation. 2. Lower lobe predominant multifocal groundglass opacities which favor an infectious process such as viral pneumonia. Will need to discuss about continued anticoagulation likely with a DOAC-we will discuss with the daughter Started on Eliquis-risk and benefits were discussed with the daughter Has been on Eliquis since yesterday 09/20/2020 (5) Acute deep vein thrombosis (DVT): Heparin drip as above. Has been started on Eliquis (6) Pneumonia: Procalcitonin was low on admission and infiltrate pattern is reflective of a viral etiology. Negative covid, Flu and RSV screenings on admission, but high risk of false negative given current clinical picture. Receiving empiric cefepime/doxycycline for now. Procalcitonin level is not high, blood and urine cultures remain negative Will de-escalate antibiotics tomorrow She was on Cipro before not sure of the cause for that We will give her Levaquin for atypical coverage as well and continue for a total of 5 days Finished the course of antibiotic Repeat Covid 19 test came back positive Likely has severe Covid pneumonia Has been getting intravenous dexamethasone received 1 dose of remdesivir Remains asymptomatic and does not require any oxygen Will not continue any more remdesivir The role of convalescent plasma remains uncertain and will not give any since he remains asymptomatic We will discuss with the daughter Has been doing fine and even circulation remains more than 93% on room air We will get PT and OT evaluation before going back to the cath site for her Will need 10 days of isolation prior to going back to the personal retirement Will be discharged to personal retirement on Wednesday (7) Dementia: Severe, patient resides in a NH. Currently unable to communicate with staff or tolerate PO. Nutrition and speech consulted. Requires help with ADL S for most of the time (8) Hypernatremia: Cont with free water to reverse this. Sodium level is 138 as of 09/25/2020 (9) Demand ischemia: Likely related to sepsis picture. No escalating velocity in troponin rise overnight when trended. Could consider echo to definitively rule out any acute wall motion abnormality. (10) Acute renal failure: Related to sepsis. Repeat BMP once she is more resuscitated and rehydrated. (11) Hypothyroidism: cont IV replacement while NPO (12) DVT prophylaxis: heparin drip -on Eliquis now Full Code Dispo-I did discuss the problems above and the plan with her daughter. She asked if there might be and ETP made for her to be with her mother and I told her we would need to see how she progressed clinically and then we could check this with the administration. Discussed with daughter and possible transfer on Wednesday We will continue PT and OT evaluation to get to her baseline Will be discharged to the personal care facility after 10 days of isolation in the hospital-likely on Wednesday We will discuss with the daughter in detail Admission and Anticipated Discharge Date Admission Date: September 16, 2020 Subjective 09/18/2020 The patient was seen and examined in telemetry unit She has profound dementia and this morning seems to be noncommunicative Otherwise remains stable with stable vitals 09/19/2020 The patient was seen and examined in telemetry/Covid room He remains stable and denies any acute symptoms 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 09/20/2020 The patient was seen and examined in Covid unit She remains stable without any acute distress She has not been eating and drinking the way she was doing before admission She will have physical therapy to improve her weakness 09/21/2020 The patient was seen and examined in Covid unit She remains stable and denies any acute symptoms She does not have any distress as well She has been communicating and was advised to drink and eat more 09/22/2020 The patient was seen and examined in Covid unit She remains stable but has not been eating and/or drinking enough She does not require any oxygen and she remains asymptomatic from COVID-19 infection 09/23/2020 The patient was seen and examined in Covid unit She remains stable but has not been drinking and eating enough She does not require any oxygen to maintain saturation above 94% Denies any symptoms 09/24/2020 The patient was seen and examined in Covid unit She remains stable and does not require any oxygen to maintain saturation She has not been eating and/or drinking enough 09/25/2020 The patient was seen and examined in Covid unit She remains a stable and she has been communicating with yes and no She has not been eating or drinking much Review of Systems Review of Systems: Unobtainable due to mental health condition Physical Exam Physical Exam: Lying in bed comfortably Constitutional: well developed; no acute distress and not ill appearing Eyes: PERRL, conjunctivae normal, anicteric sclerae ENMT: external ear and nose normal, oropharynx normal Neck: trachea midline, no thyromegaly Respiratory: no respiratory distress Auscultation: + diminished lung sounds and + crackles (Minimal crackles at the bases) Cardiovascular: Rate/Rhythm: regular rate and regular rhythm Heart Sounds: no murmur Extremities: + edema (Trace edema bilaterally) Gastrointestinal (Abdomen): Inspection/Auscultation: normal bowel sounds; abdomen not distended Percussion/Palpation: abdomen soft; abdomen nontender Musculoskeletal: No acute arthritis in any joint Neurologic: Alert and awake. Minimal communication. Generally weak and lethargic Psychiatric: Affect: euthymic affect Cognition: + recent memory not intact and + remote memory not intact Insight: + poor insight Judgement: + poor judgement Lymphatic: no cervical or axillary lymphadenopathy Results & Data Results & Data ([facility]) Vital Signs (Past 12 Hours) Vital Signs Temp Pulse Resp BP Pulse Ox 09/25/20 10:56 166/87 H 09/25/20 07:36 36.6 C 66 16 180/76 H 98 09/25/20 05:40 64 164/76 H 09/25/20 04:11 184/77 H Laboratory Results Short CBC 09/25/20 Range/Units 05:56 WBC 13.05 H (4.8-10.8) K/uL Hgb 13.9 (12.0-16.0) g/dL Hct 40.1 (37-47) % Plt Count 401 H (130-400) K/uL BMP 09/25/20 05:56 Sodium 138 Potassium 3.7 Chloride 105 Carbon Dioxide 23 BUN 15 Creatinine 0.73 Glucose 146 H Calcium 9.0 Medications Administered Current Inpatient Medications Amlodipine Besylate (Amlodipine Besylate 5 Mg Tab) 5 mg PO DAILY [facility] Stop: 10/19/20 23:12 Last Admin: 09/25/20 09:38 Dose: Not Given Documented by: Apixaban (Apixaban 5 Mg Tablet) 10 mg PO BID [facility] Stop: 09/26/20 21:01 Last Admin: 09/25/20 09:38 Dose: Not Given Documented by: Aspirin (Aspirin 81 Mg Ectab) 81 mg PO DAILY@0900 [facility] Stop: 10/20/20 08:59 Last Admin: 09/25/20 09:38 Dose: Not Given Documented by: Bupropion HCl (Bupropion Xl 300 Mg Tabcr) 300 mg PO DAILY@0900 [facility] Stop: 10/20/20 08:59 Last Admin: 09/25/20 09:38 Dose: Not Given Documented by: Calamine/Phenol (Menthol-Zinc Oxide 360 Appln/120 Gm Tube) 1 appln EXT Q8H PRN PRN Reason: Skin Irritation Stop: 10/19/20 23:12 Clonidine HCl (Clonidine Hcl 0.1 Mg/24 Hr Transderm Sys) 1 patch TD Tu@0900 [facility] Stop: 10/17/20 04:14 Last Admin: 09/24/20 08:08 Dose: 1 patch Documented by: Dextrose (Dextrose 50% 50 Ml Syringe) 25 - 50 ml IV UD PRN; Protocol PRN Reason: Hypoglycemia Protocol Stop: 10/17/20 20:32 Donepezil HCl (Donepezil Hcl 10 Mg Tab) 10 mg PO HS [facility] Stop: 10/19/20 23:12 Last Admin: 09/24/20 20:37 Dose: 10 mg Documented by: Furosemide (Furosemide 20 Mg Tab) 20 mg PO DAILY PRN PRN Reason: Edema Stop: 10/19/20 23:12 Glucagon (Glucagon For Inj 1 Mg Vial) 1 mg SQ UD PRN; Protocol PRN Reason: Hypoglycemia Protocol Stop: 10/17/20 20:32 Glucose (Glucose 10 Tabs/Tube) 4 - 8 tabs PO UD PRN; Protocol PRN Reason: Hypoglycemia Protocol Stop: 10/17/20 20:32 Glucose (Glucose 40% Gel 15 Gm Tube) 15 - 30 gm PO UD PRN; Protocol PRN Reason: Hypoglycemia Protocol Stop: 10/17/20 20:32 Thiamine HCl 100 mg/ Syringe 10 mls @ 2 mls/min IV QAM [facility] Stop: 10/17/20 08:59 Last Admin: 09/25/20 07:55 Dose: 2 mls/min Documented by: Dexamethasone 6 mg/ Syringe 1.5 mls @ 1 mls/min IV DAILY [facility] Stop: 09/27/20 22:44 Last Admin: 09/25/20 07:56 Dose: 1 mls/min Documented by: Dextrose/Sodium Chloride (D5w And 1/2nss) 1,000 mls @ 60 mls/hr IV .[id number] [facility] Stop: 10/25/20 04:29 Last Admin: 09/25/20 04:33 Dose: 60 mls/hr Documented by: Insulin Aspart (Insulin Aspart 100 Units/Ml 3 Ml Pen) 0 units SC ACHS [facility] Stop: 10/17/20 20:59 Last Admin: 09/25/20 12:46 Dose: Not Given Documented by: Levothyroxine Sodium (Levothyroxine Sodium 88 Mcg Tablet) 88 mcg PO DAILY@0600 [facility] Stop: 10/20/20 05:59 Last Admin: 09/25/20 05:50 Dose: 88 mcg Documented by: Loratadine (Loratadine 10 Mg Tab) 10 mg PO DAILY PRN PRN Reason: Allergy Symptoms Stop: 10/19/20 23:12 Megestrol Acetate (Megestrol Acetate Susp 400 Mg/10 Ml Udc) 400 mg PO QAM [facility] Stop: 10/25/20 15:14 Miscellaneous (Remove Clonidine Patch) 1 ea N/A Tu@0859 [facility] Stop: 10/24/20 08:58 Last Admin: 09/24/20 08:03 Dose: 1 ea Documented by: Miscellaneous (Check Clonidine Patch Placement) 1 ea N/A QS [facility] Stop: 10/17/20 07:59 Last Admin: 09/25/20 07:56 Dose: 1 ea Documented by: Miscellaneous (Carbohydrates For Hypoglycemia ) 15 - 30 gm PO UD PRN PRN Reason: Hypoglycemia Protocol Stop: 10/17/20 20:32 Nystatin (Nystatin Cr 15 Gm Tube) 1 appln EXT BID PRN PRN Reason: Skin Irritation Stop: 10/19/20 23:12 Nystatin (Nystatin Powder 15gm Btl) 1 appln EXT BID PRN PRN Reason: .EXCORIATION Stop: 10/19/20 23:12 Venlafaxine HCl (Venlafaxine Hcl 37.5 Mg Tab) 37.5 mg PO DAILY@0900 [facility] Stop: 10/20/20 08:59 Last Admin: 09/25/20 09:38 Dose: Not Given Documented by: (1) Dementia Dementia behavioral disturbance: without behavioral disturbance Dementia type: unspecified type Qualified Code(s): F03.90 - Unspecified dementia without behavioral disturbance
[2020-09-25] MEDS: MEGESTROL ACETATE SUSP 400 MG/10 ML UDC PO SCH (17:54)
[2020-09-25] MEDS: DONEPEZIL HCL 10 MG TAB PO SCH (21:37)
[2020-09-26] MEDS: CHECK CLONIDINE PATCH PLACEMENT SCH ×3 (00:01→17:59)
[2020-09-26] MEDS: LEVOTHYROXINE SODIUM 88 MCG TABLET PO SCH (05:39)
[2020-09-26] MEDS: ASPIRIN 81 MG ECTAB PO SCH (08:59)
[2020-09-26] MEDS: APIXABAN 5 MG TABLET PO SCH ×2 (09:00→20:15)
[2020-09-26] MEDS: VENLAFAXINE HCL 37.5 MG TAB PO SCH (09:00)
[2020-09-26] MEDS: MEGESTROL ACETATE SUSP 400 MG/10 ML UDC PO SCH (09:01)
[2020-09-26] MEDS: amLODIPine BESYLATE 5 MG TAB PO SCH (09:01)
[2020-09-26] MEDS: INSULIN ASPART 100 UNITS/ML 3 ML PEN SC SCH ×4 (10:49→21:23)
[2020-09-26] MEDS: THIAMINE HCL 100 MG in SYRINGE 9 ML IV SCH (10:50)
[2020-09-26] MEDS: buPROPion XL 300 MG TABCR PO SCH (10:50)
[2020-09-26] MEDS: dexAMETHasone 6 MG in SYRINGE 0 ML IV SCH (10:50)
[2020-09-26] MEDS: D5W AND 1/2NSS 1,000 ML IV SCH (13:46)
--- NOTE | 2020-09-26 18:46 | Hospitalist Progress Note ---
Date of Service September 26, 2020 Assessment & Plan (1) Acute metabolic encephalopathy: Multifactorial etiology:includes but not limited to electrolyte abnormality, acute infection,sepsis, acute hypoxemia, hospital delirium, H/O dementia CT head:No acute intracranial findings. No significant change since previous exam. Generalized weakness Very poor oral intake Mental status seems to be back to baseline Started on Megestrol (2) Sepsis: Sepsis COVID Pneumonia Blood/Urine Cx: Negative Levaquin, cefepime discontinued Received Remdesivir To complete Dexamethasone course tomorrow (3) Acute respiratory failure with hypoxia: Multifactorial etiology in setting of pneumonia and acute PE. Currently saturating well on room air Monitor (4) Pulmonary embolus: In the setting of acute DVT, acute infection and recent immobilization due to malaise in NH, now with hypoxia that is acute, the PE seen on imaging is likely something that acutely developed. --CTA: No acute pulmonary emboli identified. Small linear filling defect within the left lower lobe pulmonary artery suggestive of a chronic pulmonary embolus. This finding will be called/faxed to the ordering provider at time of dictation. Lower lobe predominant multifocal groundglass opacities which favor an infectious process such as viral pneumonia. -IV Heparin transition to Eliquis -Continue Eliquis--adjust dose as needed (5) Acute deep vein thrombosis (DVT): On Eliquis (6) Pneumonia: COVID Pnuemonia Received empiric Cefepime, doxycycline Received 1 dose of remdesivir To complete dexamethasone course tomorrow Currently saturating well on room air Plan to discharge back to personal [facility] as able (7) Dementia: As per Prior Hospitalist Severe, patient resides in a NH. Currently unable to communicate with staff or tolerate PO. Nutrition and speech consulted. Requires help with ADLs (8) Hypernatremia: Likely due to dehydration from poor oral intake Spinal levels back to normal Continue IV fluids (9) Demand ischemia: Likely related to sepsis (10) Acute renal failure: Creatinine back to baseline Monitor renal function (11) Hypothyroidism: Continue levothyroxine (12) DVT prophylaxis: On Eliquis Code Status Full Code Disposition Expected discharge back to personal care facility. Admission and Anticipated Discharge Date Admission Date: September 16, 2020 Subjective Patient is seen and examined at bedside Very poor historian Noticed petechial rash on back this morning No distress on exam Very poor oral intake Review of Systems Review of Systems: Other Results & Data Results & Data ([facility]) Vital Signs (Past 12 Hours) Vital Signs Temp Pulse Resp BP Pulse Ox 09/26/20 15:22 37.3 C 96 H 16 148/82 H 94 09/26/20 06:43 37.2 C 69 18 187/88 H 97 (1) Dementia Dementia behavioral disturbance: without behavioral disturbance Dementia type: unspecified type Qualified Code(s): F03.90 - Unspecified dementia without behavioral disturbance
[2020-09-26] MEDS: DONEPEZIL HCL 10 MG TAB PO SCH (20:15)
[2020-09-26] MEDS ORDERED: INSULIN GLARGINE SOLOSTAR 100 UNITS/ML 3 ML PEN SC STA (20:49)
[2020-09-26] MEDS ORDERED: DEXTROSE 50% 50 ML SYRINGE IV PRN (20:50)
[2020-09-26] MEDS ORDERED: CARBOHYDRATES FOR HYPOGLYCEMIA PO PRN (20:50)
[2020-09-26] MEDS ORDERED: GLUCOSE 10 TABS/TUBE PO PRN (20:50)
[2020-09-26] MEDS ORDERED: GLUCAGON FOR INJ 1 MG VIAL SQ PRN (20:50)
[2020-09-26] MEDS ORDERED: GLUCOSE 40% GEL 15 GM TUBE PO PRN (20:50)
[2020-09-26] MEDS ORDERED: LACTATED RINGER'S 1,000 ML IV ONE (20:53)
[2020-09-27] MEDS ORDERED: lisinopril 20 MG TAB PO STA (00:44)
[2020-09-27] MEDS: CHECK CLONIDINE PATCH PLACEMENT SCH (01:22)
[2020-09-27] MEDS ORDERED: amLODIPine BESYLATE 5 MG TAB PO SCH (02:35)
[2020-09-27] MEDS: LEVOTHYROXINE SODIUM 88 MCG TABLET PO SCH (03:47)
[2020-09-27 06:51] LABS: BUN Creatinine Ratio 27.8 (10-20); Calcium 8.2 mg/dl (8.5-10.1); Est GFR (Non-African American) 84.6; Magnesium 2.1 mg/dl (1.8-2.4); Potassium 3.5 mmol/L (3.5-5.1)
[2020-09-27] MEDS ORDERED: CHECK CLONIDINE PATCH PLACEMENT SCH (08:00)
[2020-09-27] MEDS: INSULIN ASPART 100 UNITS/ML 3 ML PEN SC SCH ×4 (09:27→21:18)
[2020-09-27] MEDS: dexAMETHasone 6 MG in SYRINGE 0 ML IV SCH (09:28)
[2020-09-27] MEDS: THIAMINE HCL 100 MG in SYRINGE 9 ML IV SCH (09:28)
[2020-09-27] MEDS: ASPIRIN 81 MG ECTAB PO SCH (09:30)
[2020-09-27] MEDS: VENLAFAXINE HCL 37.5 MG TAB PO SCH (09:30)
[2020-09-27] MEDS: MEGESTROL ACETATE SUSP 400 MG/10 ML UDC PO SCH (09:30)
[2020-09-27] MEDS: buPROPion XL 300 MG TABCR PO SCH (09:31)
--- NOTE | 2020-09-27 14:11 | Hospitalist Progress Note ---
Date of Service September 27, 2020 Assessment & Plan (1) Acute metabolic encephalopathy: Multifactorial etiology:includes but not limited to electrolyte abnormality, acute infection,sepsis, acute hypoxemia, hospital delirium, H/O dementia CT head:No acute intracranial findings. No significant change since previous exam. Generalized weakness Very poor oral intake Mental status seems to be back to baseline Continue Megestrol Covid Pneumonia likely contributing to poor appetite Discussed with patient's daughter over the phone. Family understands and agrees with current management. (2) Sepsis: Sepsis COVID Pneumonia Blood/Urine Cx: Negative Levaquin, cefepime discontinued Received Remdesivir Completed Dexamethasone course (3) Acute respiratory failure with hypoxia: Multifactorial etiology in setting of pneumonia and acute PE. Currently saturating well on room air Monitor (4) Pulmonary embolus: In the setting of acute DVT, acute infection and recent immobilization due to malaise in NH, now with hypoxia that is acute, the PE seen on imaging is likely something that acutely developed. --CTA: No acute pulmonary emboli identified. Small linear filling defect within the left lower lobe pulmonary artery suggestive of a chronic pulmonary embolus. This finding will be called/faxed to the ordering provider at time of dictation. Lower lobe predominant multifocal groundglass opacities which favor an infectious process such as viral pneumonia. -IV Heparin transition to Eliquis -Continue Eliquis 5mg BID (5) Acute deep vein thrombosis (DVT): On Eliquis (6) Pneumonia: COVID Pnuemonia Received empiric Cefepime, doxycycline Received remdesivir omplete dexamethasone course Currently saturating well on room air Plan to discharge back to personal halfway (7) Dementia: As per Prior Hospitalist Severe, patient resides in a NH. Currently unable to communicate with staff or tolerate PO. Nutrition and speech consulted. Requires help with ADLs (8) Hypernatremia: Likely due to dehydration from poor oral intake Spinal levels back to normal Received IV fluids (9) Demand ischemia: Likely related to sepsis (10) Acute renal failure: Creatinine back to baseline Monitor renal function (11) Hypothyroidism: Continue levothyroxine (12) DVT prophylaxis: On Eliquis Code Status Full Code Disposition Plan to discharge back to personal care facility. Admission and Anticipated Discharge Date Admission Date: September 16, 2020 Subjective Patient is seen and examined at bedside Very poor historian, Mostly Non verbal Rash on back resolved Discussed with Patient's daughter over phone No distress on exam Continues to have poor oral intake Denies chest pain, SOB (Nods No) Review of Systems Review of Systems: Other Physical Exam Physical Exam: Physical Exam: Vitals signs as noted above General Appearance:Moderately built and nourished, no apparent distress Head: normocephalic, Atraumatic Eyes: normal inspection, EOMI Neck: supple, Trachea midline Respiratory/Chest: Decreased breath sounds, CTA, No accessory muscle use Cardiovascular: S1, S2, No murmur Abdomen/GI:Soft, Non tender, Bowel sounds present Back: Rash resolved Extremities/Musculoskelatal:normal inspection, Trace edema Neurologic/Psych:grossly no focal neurological deficits, +Dementia, Mostly non verbal Skin: normal color, warm Results & Data Results & Data ([facility]) Vital Signs (Past 12 Hours) Vital Signs Temp Pulse Resp BP Pulse Ox 09/27/20 07:42 37.2 C 80 18 167/86 H 94 09/27/20 03:22 182/92 H (1) Dementia Dementia behavioral disturbance: without behavioral disturbance Dementia type: unspecified type Qualified Code(s): F03.90 - Unspecified dementia without behavioral disturbance
[2020-09-27] MEDS: APIXABAN 5 MG TABLET PO SCH ×2 (15:49→20:20)
--- NOTE | 2020-09-27 16:39 | Discharge Summary ---
Date of Service September 27, 2020 Admission HPI Per Admitting Provider This is an 80-year-old female who has significant past medical history of senile dementia, HTN, HLD, hypothyroidism, frequent falls who presents to ED secondary to fever and hypoxia x2 days. Currently she resides at [facility]. Hx obtained from facility as pt unable to provide hx given mental status. Symptoms started approximately 2 to 3 days ago when she had a significant decline in oral intake. On Wednesday she developed fever which has been persistent for 2 days. Initially she had a drop in her oxygen levels requiring O2 supplementation. She is normally not on oxygen. There is no exposures at facility. At baseline patient does have dementia but is usually pleasant and able to converse even though not meaningful. She does ambulate short distances at baseline. In ED patient was hypoxic requiring 6 L of O2. She also was febrile and tachycardic. She did meet SIRS criteria. Lab work notable for wbc 11.16k, h/h 1.4/51.7, plt 270, dimer 1890, Na 153, bun 63, 1.66, trop 0.067, UA +leuks, wbcs possible UTI. CXR showing bibasilar opacities and chest CT concerning for multifocal lower lobe ground glass opacities. Concerning for viral PNA. In ED she received 1 L of IVF and IV Cefepime. Admission Exam Per Admitting Provider Physical Exam Constitutional: WD/WN, vitals as above + ill appearing; no acute distress Eyes: PERRL, conjunctivae normal, anicteric sclerae ENMT: external ear and nose normal, oropharynx normal Neck: trachea midline, no thyromegaly Respiratory: normal respiratory effort, lungs clear to auscultation no respiratory distress and does not use accessory muscles Auscultation: + rhonchi (very mild bibasilar); no crackles, no rales and no wheezes currently on 6L of suppl. o2 Cardiovascular: Rate/Rhythm: + tachycardic Chest (Breasts): Chest: normal inspection of chest Gastrointestinal (Abdomen): Inspection/Auscultation: abdomen normal to inspection and normal bowel sounds; abdomen not distended Percussion/Palpation: abdomen nontender, abdomen not rigid and + abdomen not soft Musculoskeletal: no cyanosis or clubbing, extremities motor strength 5/5 Head/Neck/Chest: normocephalic and head atraumatic Skin: no rashes, warm and dry Neurologic: moves all extremities and awake pt is opening her eyes to voice and moves extremities but does not speak, appears generally weak but no focal weakness noted Psychiatric: awake but does not speak, (as above), appears comfortable, in NAD Genitourinary: no CVA tenderness Lymphatic: no lymphedema Principal Diagnosis Acute respiratory failure with hypoxia Acute metabolic encephalopathy COVID 19 Pneumonia Sepsis Pulmonary embolism Acute deep vein thrombosis Hypernatremia Dementia Acute Kidney Injury Discharge Data Allergies Allergy/AdvReac Type Severity Reaction Status Date / Time buspirone [From BuSpar] Allergy Unknown Unknown Verified 09/16/20 16:29 cefuroxime [From Ceftin] Allergy Unknown Unknown Verified 09/16/20 16:29 codeine Allergy Unknown Unknown Verified 09/16/20 16:28 diclofenac [From Voltaren] Allergy Unknown Unknown Verified 09/16/20 16:29 metronidazole [From Flagyl] Allergy Unknown Unknown Verified 09/16/20 16:28 Penicillins Allergy Unknown Unknown Verified 09/16/20 16:28 Consultations 09/16/20 17:08 ED Decision to Admit Stat 09/17/20 00:42 Consult Case Management - Discharge Planning Routine Procedures Performed CT head:No acute intracranial findings. No significant change since previous exam. CTA: No acute pulmonary emboli identified. Small linear filling defect within the left lower lobe pulmonary artery suggestive of a chronic pulmonary embolus. This finding will be called/faxed to the ordering provider at time of dictation. Lower lobe predominant multifocal groundglass opacities which favor an infectious process such as viral pneumonia. Venous Doppler: 1. No DVT within the right lower extremity. 2. Nonocclusive thrombus within the left common femoral vein which favors an acute DVT. There is also nonocclusive thrombus within the proximal greater saphenous vein. 3. There is nonocclusive echogenic stranding within the proximal to mid left superficial femoral vein which favors chronic thrombus. Ordered Studies 09/16/20 13:51 CT head/brain wo con Stat 09/16/20 14:25 CT chest wo con Stat 09/16/20 19:13 US venous doppler LE BI Routine 09/17/20 00:24 CT angio chest PE protocol Urgent Hospital Course (1) Acute metabolic encephalopathy: Multifactorial etiology:includes but not limited to electrolyte abnormality, acute infection,sepsis, acute hypoxemia, hospital delirium, H/O dementia CT head:No acute intracranial findings. No significant change since previous exam. Generalized weakness Very poor oral intake Mental status seems to be back to baseline Continue Megestrol Covid Pneumonia likely contributing to poor appetite Discussed with patient's daughter over the phone. Family understands and agrees with current management. (2) Sepsis: Sepsis COVID Pneumonia Blood/Urine Cx: Negative Levaquin, cefepime discontinued Received Remdesivir Completed Dexamethasone course (3) Acute respiratory failure with hypoxia: Multifactorial etiology in setting of pneumonia and acute PE. Currently saturating well on room air Monitor (4) Pulmonary embolus: In the setting of acute DVT, acute infection and recent immobilization due to malaise in NH, now with hypoxia that is acute, the PE seen on imaging is likely something that acutely developed. --CTA: No acute pulmonary emboli identified. Small linear filling defect within the left lower lobe pulmonary artery suggestive of a chronic pulmonary embolus. This finding will be called/faxed to the ordering provider at time of dictation. Lower lobe predominant multifocal groundglass opacities which favor an infectious process such as viral pneumonia. -IV Heparin transition to Eliquis -Continue Eliquis 5mg BID (5) Acute deep vein thrombosis (DVT): On Eliquis (6) Pneumonia: COVID Pnuemonia Received empiric Cefepime, doxycycline Received remdesivir omplete dexamethasone course Currently saturating well on room air Plan to discharge back to personal skilled nursing (7) Dementia: As per Prior Hospitalist Severe, patient resides in a NH. Currently unable to communicate with staff or tolerate PO. Nutrition and speech consulted. Requires help with ADLs (8) Hypernatremia: Likely due to dehydration from poor oral intake Spinal levels back to normal Received IV fluids (9) Demand ischemia: Likely related to sepsis (10) Acute renal failure: Creatinine back to baseline Monitor renal function (11) Hypothyroidism: Continue levothyroxine (12) DVT prophylaxis: On Eliquis Code Status Full Code Disposition Plan to discharge back to personal care facility. Total Time Total Time Spent Total Time Spent (In Minutes): 41 minutes Discharge Plan Discharge Items Patient Disposition: Personal Half-Way Reason For Visit: ACUTE HYPOXIC RESP FAILURE, SIRS, FAN, POSS COVID Discharge Diagnosis: Acute respiratory failure with hypoxia Acute metabolic encephalopathy COVID 19 Pneumonia Sepsis Pulmonary embolism Acute deep vein thrombosis Hypernatremia Dementia Acute Kidney Injury Condition on Discharge: Fair Activity: Per Instructions section Exercise/Sports: Gradually increase as tolerated Non-emergency contact: Primary Care Provider Call non-emergency contact if: you have any medication questions, your symptoms worsen, your pain is not controlled, your pain is worsening, your pain is unusual for you, your pain is concerning for you and you have a fever Follow-up/Referrals: Meggan Loyola [Primary Care Provider] - Dietitian Info: Minced and Moist Diet: Carb Consistent or DM2 Addtl Attending Provider Instructions: Follow-up with your primary care physician at [facility] in 1 week Seek immediate medical attention if your symptoms reoccur or worsen Pending Studies at Discharge: No Stand-Alone Forms: My [employer], Smoking Cessation Skilled Items Patient informed of condition?: Yes DNR: No Discharge Level of Care: Other Communicable Disease: Yes Discharge Prognosis: Stable Lines: None Urinary Catheter: No Medications and DC Order Prescriptions: New Eliquis 5 mg Tablet 5 mg PO BID Qty: 60 RF: 1 megestrol 40 mg tablet 40 mg PO DAILY Qty: 30 RF: 0 Continued lisinopril 20 mg tablet 20 mg PO DAILY@0800 RF: 0 levothyroxine 88 mcg tablet 88 mcg PO DAILY@0600 RF: 0 amlodipine 5 mg tablet 5 mg PO DAILY RF: 0 loratadine 10 mg Tablet 10 mg PO DAILY PRN (Reason: Allergy Symptoms) RF: 0 cholecalciferol (vitamin D3) 25 mcg (1,000 unit) Tablet 25 mcg PO DAILY RF: 0 acetaminophen [Tylenol Extra Strength] 500 mg Tablet 1,000 mg PO Q4H MDD 3G PRN (Reason: Pain) RF: 0 furosemide 20 mg tablet 20 mg PO DAILY PRN (Reason: Edema) RF: 0 Calmoseptine 0.44-20.6 % Ointment 1 applic TOPICAL Q8H PRN (Reason: Skin Irritation) RF: 0 nystatin 100,000 unit/gram Powder 1 applic TOPICAL BID PRN (Reason: .EXCORIATION) RF: 0 nystatin 100,000 unit/gram Cream 1 applic TOPICAL BID PRN (Reason: Skin Irritation) RF: 0 aspirin 81 mg Tablet,Delayed Release (Dr/Ec) 81 mg PO DAILY@0900 RF: 0 bupropion HCl 300 mg Tablet Extended Release 24 Hr 300 mg PO DAILY@0900 RF: 0 donepezil 10 mg Tablet 10 mg PO HS RF: 0 potassium chloride 8 mEq Tablet Extended Release 8 meq PO DAILY@0900 RF: 0 calcium carbonate [Calcium 600] 600 mg calcium (1,500 mg) Tablet 600 mg PO BID RF: 0 Child Complete Multivitamin 18 mg iron Tablet,Chewable 18 mg PO DAILY@0900 RF: 0 simvastatin 40 mg Tablet 40 mg PO DAILY@1700 RF: 0 venlafaxine 37.5 mg Tablet 37.5 mg PO DAILY@0900 RF: 0 promethazine 12.5 mg Tablet 12.5 mg PO Q6H PRN (Reason: nausea/vomiting) RF: 0 ciprofloxacin HCl 500 mg tablet 500 mg PO UD Qty: 10 RF: 0 Discontinued acetaminophen 500 mg Tablet 1,000 mg PO BID RF: 0 Discharge Orders: Discharge Order (Routine); Ordered 09/27/20 Ordered By: Johnnie Chirinos/Other Patient Handouts: A1C, How COVID-19 Spreads, Symptoms of COVID-19 Infection Admission Data Admit Date/Time: 09/16/20 17:35 Attending Provider: Johnnie Noel Admit Provider: Felix Marroquin Primary Care Provider: Meggan Loyola Other Providers: Shanna Delgado ; Felix Marroquin Other Interventions: Discharge Summary Assessment (RN) Last Done: 09/27/20 16:07
[2020-09-27] MEDS: DONEPEZIL HCL 10 MG TAB PO SCH (20:20)
[2020-09-27] MEDS ORDERED: INSULIN GLARGINE SOLOSTAR 100 UNITS/ML 3 ML PEN SC SCH (21:00)
[2020-09-28] MEDS ORDERED: lisinopril 20 MG TAB PO SCH (09:00)
== END 2020-09-27 22:22 | disposition home or self-care (01) | DRG 871 ==
LOC: ED 13:16 → SUATTDRO 17:35 → 2S 17:35 → 3E 09-20 01:14